=== PATIENT | female | born 1940 | race Caucasian/White ===

== ENCOUNTER 2020-08-09 09:48 | Inpatient (IN) ==
--- NOTE | 2020-08-09 10:33 | Emergency Department Note ---
Seizure HPI General Chief Complaint: Seizure Stated Complaint: seizure Time Seen by Provider: 08/09/20 10:00 Source: patient and family Mode of arrival: wheelchair History of Present Illness HPI Narrative: 80-year-old female with a history of prior seizures, none recent (2 in the past in [place]), comes in this morning after having a seizure this morning. She was initially postictal but it does not sound like she injured herself. She lives with her son out in [place], and she had a bowel accident when this happened. She was initially unresponsive but breathing on her own. But gradually came around. She does not remember the event. The son did not see any movements rather he just found her collapsed in her chair. She is not on any seizure medicine. With the 2 prior seizures she had low blood sugars but today her blood sugar is normal. She does have a history of Alzheimer's and is unable to give me meaningful review of systems or history of present illness- however she is pleasant and does give me some remote history about her diabetes and her prior health condition. Her son is available and gives me most of the history and review of system-she recently moved in with them 2 months ago Her son notes that she has a history of lymphedema but not necessarily congestive heart failure. Her primary care provider recently stopped her diuretic and potassium due to kidney issues with increased creatinine. She refuses to wear compression hose. He also notes that she has a history of recurrent UTI and they have an open order to get urinalysis. She is afebrile Related Data Previous Rx's Medication Instructions Recorded blood sugar diagnostic #10 each 07/21/20 calcium carb-vit D3-minerals 600 1 tab PO BID #180 tab 07/21/20 mg calcium-400 unit tablet cholecalciferol (vitamin D3) 25 25 mcg PO QDAY #90 tab 07/21/20 mcg (1,000 unit) tablet furosemide 40 mg tablet 40 mg PO QAM #30 tab 07/21/20 isosorbide mononitrate 30 mg 30 mg PO QDAY #90 tab 07/21/20 tablet,extended release 24 hr lancets 30 gauge #100 each 07/21/20 pioglitazone 30 mg tablet 30 mg PO QDAY #90 tab 07/21/20 potassium chloride 10 mEq 10 meq PO QDAY #30 tab 07/21/20 tablet,extended release rosuvastatin 40 mg tablet 40 mg PO QDAY #90 tab 07/21/20 trazodone 50 mg tablet See Rx Instructions PO QHS #180 tab 07/21/20 valsartan 160 mg tablet 160 mg PO BID #180 tab 07/21/20 risperidone 0.5 mg disintegrating 1 mg PO QHS #60 tab 08/05/20 tablet Allergies Allergy/AdvReac Type Severity Reaction Status Date / Time quetiapine AdvReac Intermediate extreme Verified 08/09/20 10:28 bayron Review of Systems ROS ROS Narrative: Narrative: Limitations: ROS unobtainable due to patients medical condition [facility] Narrative Patient History Narrative: Narrative: Medical/Surgical/Family History All Active Problems (Updated 08/09/20 @ 16:27 by Leo Gao MD) Hematochezia (Acute) CHF (congestive heart failure) (Acute) Seizure (Acute) Anemia, normocytic normochromic (Acute) Chronic kidney disease (Acute) SunDown syndrome (Acute) Acute coronary syndrome (Acute) Abnormal CT scan, head (Acute) Injury due to fall (Acute) Liver mass (Acute) Atherosclerosis of aorta (Acute) Abnormal finding on urinalysis (Acute) Acute renal failure (Acute) Hypertension (Acute) Type 2 diabetes mellitus with hyperlipidemia (Acute) Alzheimer's dementia (Acute) GERD (gastroesophageal reflux disease) (Acute) Hx of transient ischemic attack (TIA) (Acute) Major depressive disorder, recurrent episode (Acute) Vitamin D deficiency (Acute) Hx of colonoscopy (Acute) 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 30-59 (Acute) Osteoporosis (Acute) Anxiety (Acute) Chronic heartburn (Acute) Vascular dementia without behavioral disturbance (Chronic) Medical History (Updated 08/09/20 @ 16:27 by Leo Gao MD) Abnormal CT scan, head (Acute) Abnormal finding on urinalysis (Acute) Acute coronary syndrome (Acute) Acute renal failure (Acute) Alzheimer's dementia (Acute) Anxiety (Acute) Atherosclerosis of aorta (Acute) Chronic heartburn (Acute) GERD (gastroesophageal reflux disease) (Acute) Hx of transient ischemic attack (TIA) (Acute) Hypertension (Acute) Injury due to fall (Acute) Liver mass (Acute) Major depressive disorder, recurrent episode (Acute) Osteoporosis (Acute) 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 No acute distress. Normocephalic atraumatic. Conjunctive are clear sclerae white nonicteric. Pupils are equal and reactive. Extraocular movements are intact. Face is symmetrical. No nasal congestion or discharge. Oropharynx is pink and moist. Tongue is midline. She is able to smile. Dentures upper but not lower. Neck is supple without lymphadenopathy thyromegaly or carotid bruit. Heart is regular rate and rhythm no murmur appreciated. Lungs are clear to auscultation bilaterally without wheezes rales rhonchi or respiratory distress. Abdomen is soft nontender nondistended. No peritoneal signs or guarding. Bilateral lower extremities with +1 pitting edema to the knees. Rectal exam shows 2 large old hemorrhoid tags which are not currently bleeding. Adequate rectal tone. I do not see a fissure. She is Hemoccult positive with charlotte dark blood coming from her rectum Course Vital Signs Vital signs: Vital Signs Temperature 97.4 F 08/09/20 10:05 Pulse Rate 89 08/09/20 10:05 Respiratory Rate 16 08/09/20 10:05 Blood Pressure 130/55 08/09/20 10:05 Pulse Oximetry (%) 99 08/09/20 10:05 Temperature 97.4 F 08/09/20 10:05 Pulse Rate 87 08/09/20 16:16 Respiratory Rate 19 08/09/20 16:16 Blood Pressure 116/61 08/09/20 16:16 Pulse Oximetry (%) 97 08/09/20 16:16 [facility] MDM Narrative Medical decision making narrative: Narrative: Concern for recurrent seizure this time with normal blood sugar. We will scan her head and get laboratory. It does sound like she has a recent history of possible UTI so we will check urine on her as well. Ongoing history of congestive heart failure versus lymphedema now with chronic kidney disease. We will check her fluid status-in discussion with her son she will likely need an echocardiogram After getting back from CT scan of the head she developed some jaw pain which in the past is signified angina for her. Her son asks if he can give her her isosorbide which is what she takes for this. I agreed-he gave her the isosorbide. I will add a troponin to labs-however acknowledge that this may be difficult to interpret given her current kidney function Negative CT scan of the head without contrast. Laboratory showed improved kidney function but the BNP is elevated. Likely she is a little bit fluid up but she is not eating or drinking much this morning. I had a long discussion with her son regarding fluid status-we discussed balancing diuretic versus fluid intake. At this point because her kidneys are doing well and she is not symptomatic from her heart failure besides mild swelling in the legs we will go ahead and put her on low amount of IV fluid. She does not feel particularly hungry or thirsty at this moment. Initial troponin was negative but as she was having some chest pain we will go ahead and repeat troponin at 1400. Discussed these things with her son-and he is in agreement with the plan. She will likely need outpatient echocardiogram and EEG to further sort this out. She has chronic normocytic anemia likely secondary to kidney disease which will also need to be followed Nursing staff reports her Hemoccult was positive on bowel movement here. We will scan her belly with noncontrast because of her kidney status. She does have a history of a kidney mass? Per her son but we do not see that here today. CT scan of the abdomen pelvis is negative for acute findings I did look at her next bowel movement as she had several here and she is got jellylike blood clots small amount in the bedside commode. Rectal exam shows indeed charlotte blood from her rectum. Discussed the situation with Dr. Zelaya, surgeon who agreed to consult on the patient for possible colonoscopy. He advised me to go ahead and start GoLYTELY. It is noted that the patient's hemoglobin dropped less than 1 unit from 9.4-8.6 over the last 3 days. MCV remains normal I will discuss with hospitalist admission for acute GI bleed-Dr. Gómez agreed to accept the patient for further care and evaluation in the hospital. I discussed her CODE STATUS with her son. At this time she is a full code I did take the time to discuss these things with her son who was immediately available most of the time she was here in the hospital. I tried to answer all of his questions as best as I could Lab Data Result diagrams: 08/09/20 10:30 08/09/20 10:30 Labs: Lab Results 08/09/20 08/09/20 08/09/20 Range/Units 10:30 10:30 10:30 WBC 5.4 (4.5-11.0) K/mcL RBC 2.86 L (4.00-5.20) M/mcL Hgb 8.6 L (12.0-15.0) g/dL Hct 25.7 L (36.0-48.0) % MCV 89.9 (80.0-100.0) fL MCH 30.1 (26.0-34.0) pg MCHC 33.5 (31.0-36.0) g/dL RDW 13.2 (11.5-14.5) % Plt Count 151 (140-440) K/mcL MPV 11.0 H (7.4-10.4) fL Neut % (Auto) 73.7 (38.0-78.0) % Lymph % (Auto) 14.7 L (15.0-49.0) % [place] % (Auto) 8.5 (1.0-12.0) % Eos % (Auto) 2.9 (0.0-7.0) % Baso % (Auto) 0.2 (0.0-2.0) % Lymph # (Auto) 0.80 L (1.50-4.80) K/mcL [place] # (Auto) 0.46 (0.10-0.90) K/mcL Eos # (Auto) 0.16 (0.00-0.70) K/mcL Baso # (Auto) 0.01 (0.00-0.20) K/mcL Absolute Neutrophils 4.00 (1.80-8.00) K/mcL Sodium 121 L (133-145) mmol/L Potassium 4.3 (3.3-5.1) mmol/L Chloride 87 L (96-108) mmol/L Carbon Dioxide 22 (22-30) mmol/L Anion Gap 12.0 (8.0-16.0) BUN 54 H (8-23) mg/dL Creatinine 2.1 H (0.6-1.1) mg/dL GFR Calculation 21 Glucose 210 H (70-105) mg/dL Calcium 9.3 (8.6-10.4) mg/dL Magnesium 1.9 (1.6-2.5) mg/dL Total Bilirubin 0.5 (0.1-1.0) mg/dL AST 14 (<32) U/L ALT 8 (<40) U/L Alkaline Phosphatase 101 (39-117) U/L Troponin T < 0.01 (<0.03) ng/mL NT-Pro-B Natriuret Pep 2393.0 H (<450.0) pg/mL Total Protein 6.2 (5.9-8.4) gm/dL Albumin 3.7 (3.2-5.2) gm/dL Globulin 2.5 (2.2-3.7) gm/dL Albumin/Globulin Ratio 1.5 (1.0-2.3) Prolactin 143.1 H (4.8-23.3) ng/mL 08/09/20 Range/Units 14:04 WBC (4.5-11.0) K/mcL RBC (4.00-5.20) M/mcL Hgb (12.0-15.0) g/dL Hct (36.0-48.0) % MCV (80.0-100.0) fL MCH (26.0-34.0) pg MCHC (31.0-36.0) g/dL RDW (11.5-14.5) % Plt Count (140-440) K/mcL MPV (7.4-10.4) fL Neut % (Auto) (38.0-78.0) % Lymph % (Auto) (15.0-49.0) % [place] % (Auto) (1.0-12.0) % Eos % (Auto) (0.0-7.0) % Baso % (Auto) (0.0-2.0) % Lymph # (Auto) (1.50-4.80) K/mcL [place] # (Auto) (0.10-0.90) K/mcL Eos # (Auto) (0.00-0.70) K/mcL Baso # (Auto) (0.00-0.20) K/mcL Absolute Neutrophils (1.80-8.00) K/mcL Sodium (133-145) mmol/L Potassium (3.3-5.1) mmol/L Chloride (96-108) mmol/L Carbon Dioxide (22-30) mmol/L Anion Gap (8.0-16.0) BUN (8-23) mg/dL Creatinine (0.6-1.1) mg/dL GFR Calculation Glucose (70-105) mg/dL Calcium (8.6-10.4) mg/dL Magnesium (1.6-2.5) mg/dL Total Bilirubin (0.1-1.0) mg/dL AST (<32) U/L ALT (<40) U/L Alkaline Phosphatase (39-117) U/L Troponin T < 0.01 (<0.03) ng/mL NT-Pro-B Natriuret Pep (<450.0) pg/mL Total Protein (5.9-8.4) gm/dL Albumin (3.2-5.2) gm/dL Globulin (2.2-3.7) gm/dL Albumin/Globulin Ratio (1.0-2.3) Prolactin (4.8-23.3) ng/mL Radiology Data Radiology results reviewed: Yes I reviewed the patient's radiology results. Radiology results narrative: CT scan of the head shows no acute finding-expected chronic degenerative changes. Noted chronic calcific changes without obstruction in the vasculature CT scan of the abdomen pelvis without contrast is compared where possible with other studies-no acute findings are noted but she does have relatively severe atherosclerotic disease. EKG Data EKG #1: EKG attestation: Yes I reviewed and interpreted this EKG. EKG results narrative: Sinus rhythm. Noted left axis deviation concerning for left anterior fascicular block. Discharge Plan Patient/Caregiver Discharge Instructions Pt seen by SOCIAL SECRETARY/PA only: No Clinical Impression: Seizure, Anemia, normocytic normochromic, Hematochezia Chronic kidney disease Qualifiers: Chronic kidney disease stage: unspecified stage Qualified Code(s): N18.9 - Chronic kidney disease, unspecified CHF (congestive heart failure) Qualifiers: Heart failure type: unspecified Heart failure chronicity: unspecified Qualified Code(s): I50.9 - Heart failure, unspecified Patient Disposition: Xfer As Inpt ([facility]) Condition: Fair Follow up with: Salina Mack ARNP [Primary Care Provider] - Prescriptions: No Action calcium carbonate-vit D3-min 600 mg calcium- 400 unit tablet 1 tab PO BID Qty: 180 RF: 3 Hold Instructions: Doctor's Order cholecalciferol (vitamin D3) 25 mcg (1,000 unit) tablet 25 mcg PO QDAY Qty: 90 RF: 3 isosorbide mononitrate 30 mg tablet extended release 24 hr 30 mg PO QDAY Qty: 90 RF: 3 pioglitazone 30 mg tablet 30 mg PO QDAY Qty: 90 RF: 3 rosuvastatin 40 mg tablet 40 mg PO QDAY Qty: 90 RF: 1 trazodone 50 mg tablet See Rx Instructions PO QHS Qty: 180 RF: 2 valsartan 160 mg tablet 160 mg PO BID Qty: 180 RF: 3 (DME) OneTouch Verio test strips Strip See Rx Instructions .ROUTE .MEDSUPPLY Qty: 10 RF: 0 (DME) lancets [OneTouch Delica Lancets] 30 gauge misc See Rx Instructions .ROUTE .MEDSUPPLY Qty: 100 RF: 0 furosemide 40 mg tablet 40 mg PO QAM Qty: 30 RF: 1 Hold Instructions: Doctor's Order potassium chloride 10 mEq tablet extended release 10 meq PO QDAY Qty: 30 RF: 3 Hold Instructions: Doctor's Order risperidone 0.5 mg tablet,disintegrating 1 mg PO QHS Qty: 60 RF: 1
[2020-08-09 11:07] LABS: Basophils # (Auto) 0.01 K/mcL (0.00-0.20); Basophils % (Auto) 0.2 % (0.0-2.0); Eosinophils # (Auto) 0.16 K/mcL (0.00-0.70); Eosinophils % (Auto) 2.9 % (0.0-7.0); Hematocrit 25.7 % (36.0-48.0); Hemoglobin 8.6 g/dL (12.0-15.0); Lymphocytes % (Auto) 14.7 % (15.0-49.0); Mean Cell Volume 89.9 fL (80.0-100.0); Mean Corpuscular HGB Conc 33.5 g/dL (31.0-36.0); Monocytes # (Auto) 0.46 K/mcL (0.10-0.90); Monocytes % (Auto) 8.5 % (1.0-12.0); Neutrophils % (Auto) 73.7 % (38.0-78.0); Platelet Count 151 K/mcL (140-440); RBC 2.86 M/mcL (4.00-5.20); Red Cell Distribution Width 13.2 % (11.5-14.5); WBC 5.4 K/mcL (4.5-11.0)
[2020-08-09] MEDS ORDERED: LORazepam 2 MG/ML VIAL IV ONE ×2 (11:07→17:48)
[2020-08-09 11:31] LABS: ALT/SGPT 8 U/L (<40); AST/SGOT 14 U/L (<32); Albumin 3.7 gm/dL (3.2-5.2); Albumin/Globulin Ratio 1.5 (1.0-2.3); Alkaline Phosphatase 101 U/L (39-117); Bilirubin,Total 0.5 mg/dL (0.1-1.0); Blood Urea Nitrogen 54 mg/dL (8-23); Calcium 9.3 mg/dL (8.6-10.4); Carbon Dioxide 22 mmol/L (22-30); Chloride 87 mmol/L (96-108); Globulin 2.5 gm/dL (2.2-3.7); Glomerular Filtration Rate 21; Glucose 210 mg/dL (70-105)
[2020-08-09 12:05] LABS: Prolactin 143.1 ng/mL (4.8-23.3)
[2020-08-09] MEDS ORDERED: 0.9 % SODIUM CHLORIDE 1,000 ML IV SCH (13:00)
--- NOTE | 2020-08-09 15:27 | Cat Scan Report ---
History: Dementia and new seizure TECHNIQUE: The brain was imaged without contrast at 2.5 mm intervals. Sagittal and coronal reformats were created. The radiation exposure was limited using dose reduction technology. FINDINGS: Patient has mild to moderate generalized cerebral atrophy predominantly involving the upper convexities of the frontal and parietal lobes. There is no evidence of an infarct, hemorrhage or mass effect. The ventricles and cisterns are normal. There is a focal deposition of fat in the left choroid plexus. This is probably an incidental finding. Moderate amount calcified plaque is present in the vertebral arteries and cavernous portions of both internal carotids. There is hyperostosis frontalis interna along the inner table of both frontal bones. This is an incidental finding. The calvarium is otherwise normal. IMPRESSION: Age-related degenerative changes and no acute abnormality to explain the patient's seizure Dr. Gao was called with the results Interpreted and Authenticated by: Javon Schuler 08/09/20
--- NOTE | 2020-08-09 15:44 | Cat Scan Report ---
History: Hematochezia, liver mass, gastroesophageal reflux TECHNIQUE: The patient was imaged without oral or IV contrast. Patient's BUN and creatinine are elevated, preventing us from administering intravenous contrast. The patient was imaged from the diaphragm through the symphysis pubis. Sagittal and coronal reformats were created. The radiation exposure was limited using dose reduction technology. FINDINGS: Bands of scar or discoid atelectasis are present at the left lung base.1 large amount calcified plaque in the coronary arteries. Distal thoracic aorta is very tortuous but normal in caliber. Evaluation of abdominal organs without contrast is limited. There is a bulbous contour in the liver anteriorly in segment 4B of the left lobe. The liver parenchyma in this region is homogeneous with the remainder of the liver. On the prior chest CT done on 08/16/13, the most inferior cut was at the upper level of this contour deformity of the liver capsule. Even though the whole region was not visualized on the prior CT scan, I believe it is a chronic stable finding. The remainder the liver is homogeneous. The spleen is normal in size and homogeneous. No abnormalities detected in the pancreas. The gallbladder has been removed. The bile ducts are nondilated. The adrenals are normal. Patient has severe atherosclerotic disease throughout the abdomen and pelvis with numerous calcified plaques in the intraparenchymal visceral branches and all of the abdominal organs. Densely calcified plaques are also present in the aorta and iliac arteries but there is no aneurysm. There may be a few tiny nonobstructing calyceal stones in both kidneys. They are difficult to clearly distinguish from the abundant arterial calcifications in the interlobar arteries. There is mild stranding of the perirenal fat. No hydronephrosis is present and there is no evidence of a solid mass in either kidney. The ureters are decompressed. There are phleboliths in the left femoral vein and left upper pelvis. The uterus is somewhat bulky and also contains numerous basilar calcifications. There is also a calcified fibroid in uterus. Calcifications are also seen in both ovaries. The ovaries are normal in size. There are a few noninflamed diverticula in the sigmoid colon. Large and small intestine are normal in caliber. There is no evidence of colitis. No ascites, abscess or adenopathy are present in the abdomen or pelvis. The urinary bladder is normal in caliber. There is inflammation around the umbilicus. Associated with this is a small fat-containing umbilical hernia. Patient has a metal kiara in the left hip. Degenerative disc disease and arthritis are present throughout the lumbar spine and lower thoracic spine. There is moderate spinal canal stenosis at L4-5. IMPRESSION: Mild diverticulosis of the sigmoid colon. No acute abnormality is seen in the abdomen or pelvis to explain the anemia. Severe atherosclerotic disease throughout the entire abdomen and pelvis. Although I do not identify ischemic bowel, the patient is at risk of bowel ischemia due to severe atherosclerosis. Bulbous contour anteriorly in the left lobe of the liver Dr. Gao was called with the results Interpreted and Authenticated by: Javon Schuler 08/09/20
[2020-08-09] MEDS ORDERED: PEG 3350/NA SULF,BICARB,CL/KCL 4,000 ML ORAL.SOL PO ONE (16:22)
[2020-08-09 16:50] LABS: Appearance,Urine CLEAR (Clear); Bilirubin,Urine Negative (Negative); Color,Urine STRAW; Culture Indicated,Urine No; Glucose,Urine (UA) Negative (Negative); Ketones,Urine Negative (Negative); Leukocyte Esterase,Urine Negative /ug (Negative); Nitrate,Urine Negative (Negative); Protein,Urine Negative (Negative); Specific Gravity,Urine 1.006 (1.000-1.035); Urine Blood Negative (Negative); Urobilinogen,Urine Negative
--- NOTE | 2020-08-09 17:09 | Internal Med History&Physical ---
HPI History of Present Illness Patient information: Note initiated : 08/09/20 at 4:55 pm Service Date, if different from initiated Date: [] Patient: Xi Smith a 80 y/o F admitted on for seizure. Chief Complaint: [] History of present illness: Ms. Smith is a 80 year old F Presents to the ED for seizure per her son. Most history obtained from the son as patient has advanced dementia Alzheimer's. Per the son she did have several seizures in the past within the past couple years but it was felt that was related to hypoglycemia. Her blood glucose this time was fine. Son states that he got her up and she was in the chair. He went out and came back and he was unresponsive and her eyes were rolling back, he said she was "planking". She has not been on any seizure medication. She recently moved here from [place]. She also has history of chronic kidney disease and chronic anemia and has receives blood transfusions every 3 to 6 months. Per the son she was out of about 30 minutes and was groggy and slurring and then came around and is essentially back to baseline. She lost her bowel function. Patient has history of lymphedema but per son has no history of heart failure or CAD. While in the ER she is noted to have multiple bloody stools. Her hemoglobin 4 days ago was 9.4, it is 8.6 as of this morning. Pending repeat H&H right now. General surgeon was contacted for endoscopy. In the ED she was found to be hyponatremic as well. She had an elevated prolactin. Patient denies any pains or complaints no abdominal pain chest pain shortness of breath. Review of Systems: Positive as above. Denies headache/fever/chills/nausea/vomiting/chest or abdominal pain/cough/dyspnea. Remaining 10 point review of system reviewed negative PFSH PFSH All Active Problems (Updated 08/09/20 @ 16:27 by Leo Gao MD) Hematochezia (Acute) CHF (congestive heart failure) (Acute) Seizure (Acute) Anemia, normocytic normochromic (Acute) Chronic kidney disease (Acute) SunDown syndrome (Acute) Acute coronary syndrome (Acute) Abnormal CT scan, head (Acute) Injury due to fall (Acute) Liver mass (Acute) Atherosclerosis of aorta (Acute) Abnormal finding on urinalysis (Acute) Acute renal failure (Acute) Hypertension (Acute) Type 2 diabetes mellitus with hyperlipidemia (Acute) Alzheimer's dementia (Acute) GERD (gastroesophageal reflux disease) (Acute) Hx of transient ischemic attack (TIA) (Acute) Major depressive disorder, recurrent episode (Acute) Vitamin D deficiency (Acute) Hx of colonoscopy (Acute) 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 30-59 (Acute) Osteoporosis (Acute) Anxiety (Acute) Chronic heartburn (Acute) Vascular dementia without behavioral disturbance (Chronic) Medical History (Updated 08/09/20 @ 16:27 by Leo Gao MD) Abnormal CT scan, head (Acute) Abnormal finding on urinalysis (Acute) Acute coronary syndrome (Acute) Acute renal failure (Acute) Alzheimer's dementia (Acute) Anxiety (Acute) Atherosclerosis of aorta (Acute) Chronic heartburn (Acute) GERD (gastroesophageal reflux disease) (Acute) Hx of transient ischemic attack (TIA) (Acute) Hypertension (Acute) Injury due to fall (Acute) Liver mass (Acute) Major depressive disorder, recurrent episode (Acute) Osteoporosis (Acute) 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 30-59 (Acute) Type 2 diabetes mellitus with hyperlipidemia (Acute) Vascular dementia without behavioral disturbance (Chronic) Vitamin D deficiency (Acute) Surgical History (Updated 08/09/20 @ 14:13 by Leo Gao MD) History of cholecystectomy (Acute) History of hip surgery (Acute) Hx of colonoscopy (Acute) Social History (Updated 07/21/20 @ 15:49 by Silke Coulter CMA) lives independently: No marital status: smoking status: Former smoker alcohol intake frequency: does not drink substance use type: does not use MEDS/ALLERGIES Home Medications and Allergies Home Medications Medication Instructions Recorded Confirmed Type blood sugar diagnostic #10 each 07/21/20 07/21/20 Rx calcium carb-vit D3-minerals 600 1 tab PO BID #180 tab 07/21/20 07/21/20 Rx mg calcium-400 unit tablet cholecalciferol (vitamin D3) 25 25 mcg PO QDAY #90 tab 07/21/20 08/09/20 Rx mcg (1,000 unit) tablet furosemide 40 mg tablet 40 mg PO QAM #30 tab 07/21/20 07/21/20 Rx isosorbide mononitrate 30 mg 30 mg PO QDAY #90 tab 07/21/20 08/09/20 Rx tablet,extended release 24 hr lancets 30 gauge #100 each 07/21/20 07/21/20 Rx pioglitazone 30 mg tablet 30 mg PO QDAY #90 tab 07/21/20 08/09/20 Rx potassium chloride 10 mEq 10 meq PO QDAY #30 tab 07/21/20 07/21/20 Rx tablet,extended release rosuvastatin 40 mg tablet 40 mg PO QDAY #90 tab 07/21/20 08/09/20 Rx trazodone 50 mg tablet See Rx Instructions PO QHS #180 tab 07/21/20 08/09/20 Rx valsartan 160 mg tablet 160 mg PO BID #180 tab 07/21/20 08/09/20 Rx risperidone 0.5 mg disintegrating 1 mg PO QHS #60 tab 08/05/20 08/09/20 Rx tablet Allergies Allergy/AdvReac Type Severity Reaction Status Date / Time quetiapine AdvReac Intermediate extreme Verified 08/09/20 10:28 fatique EXAM Constitutional Vitals: Temp Pulse Resp BP Pulse Ox 97.4 F 87 19 116/61 97 08/09/20 10:05 08/09/20 16:16 08/09/20 16:16 08/09/20 16:16 08/09/20 16:16 Exam: General: Alert, Awake, No acute Distress, obese Eyes/N/T: EOMI, PERRL, Head/Neck: neck supple, normocephalic atraumatic CV: RRR, No murmurs, normal s1/s2 Pulm: Clear b/l, no wheezing/rhonchi/rales Abd: soft, nontender, +BS x4 Ext: no clubbing/cyanosis, 1-2+ b/l LE edema Neuro: Alert, no focal deficits, moves all extremities, CN 2-12 grossly intact, symmetrical strength b/l upper/lower, sensations intact b/l upper/lower Skin: warm/dry DATA Data Completed and Pending Labs: Labs from last 24 hours 08/09/20 08/09/20 08/09/20 15:54 14:04 10:30 WBC RBC Hgb Hct MCV MCH MCHC RDW Plt Count MPV Neut % (Auto) Lymph % (Auto) [place] % (Auto) Eos % (Auto) Baso % (Auto) Lymph # (Auto) [place] # (Auto) Eos # (Auto) Baso # (Auto) Absolute Neutrophils Sodium Potassium Chloride Carbon Dioxide Anion Gap BUN Creatinine GFR Calculation Glucose Calcium Magnesium Total Bilirubin AST ALT Alkaline Phosphatase Troponin T < 0.01 < 0.01 NT-Pro-B Natriuret Pep Total Protein Albumin Globulin Albumin/Globulin Ratio Prolactin Urine Color Straw Urine Appearance Clear Urine pH 5.0 Ur Specific [place] 1.006 Urine Protein Negative Urine Glucose (UA) Negative Urine Ketones Negative Urine Occult Blood Negative Urine Nitrate Negative Urine Bilirubin Negative Urine Urobilinogen Negative Ur Leukocyte Esterase Negative Ur Culture Indicated? No 08/09/20 08/09/20 10:30 10:30 WBC 5.4 RBC 2.86 L Hgb 8.6 L Hct 25.7 L MCV 89.9 MCH 30.1 MCHC 33.5 RDW 13.2 Plt Count 151 MPV 11.0 H Neut % (Auto) 73.7 Lymph % (Auto) 14.7 L [place] % (Auto) 8.5 Eos % (Auto) 2.9 Baso % (Auto) 0.2 Lymph # (Auto) 0.[address] [place] # (Auto) 0.46 Eos # (Auto) 0.16 Baso # (Auto) 0.01 Absolute Neutrophils 4.00 Sodium 121 L Potassium 4.3 Chloride 87 L Carbon Dioxide 22 Anion Gap 12.0 BUN 54 H Creatinine 2.1 H GFR Calculation 21 Glucose 210 H Calcium 9.3 Magnesium 1.9 Total Bilirubin 0.5 AST 14 ALT 8 Alkaline Phosphatase 101 Troponin T NT-Pro-B Natriuret Pep 2393.0 H Total Protein 6.2 Albumin 3.7 Globulin 2.5 Albumin/Globulin Ratio 1.5 Prolactin 143.1 H Urine Color Urine Appearance Urine pH Ur Specific Rice Urine Protein Urine Glucose (UA) Urine Ketones Urine Occult Blood Urine Nitrate Urine Bilirubin Urine Urobilinogen Ur Leukocyte Esterase Ur Culture Indicated? A/P Narrative A/P Narrative: A: *GI Bleed: *Acute blood loss anemia on chronic anemia: *Suspected seizure: had several seizures past couple years but son says it was felt to be related to hypoglycemia -glucose wnl by EMS, elevated prolactin -CT brain no acute path *Hyponatremia: 121, not typically low enough to cause seizure and symptoms resolved on own. sodium was 129 on 08/05 *CKD IV: *DM:on pioglitazone, A1c 7.6 *Chronic lymphedema: *Anxiety/depression: *Obesity: *HTN/HLD: * P: -Gen Surgeon consulted for endoscopy. -1 prbc and f/u H&H. -prn ativan, MARIE goffra for now -w/u with neurology for further seizure evaluation, EEG/MRI -hyponatremia w/u -cont hold home lasix that was recently held as well as calcium supp -hold home ARB while monitoring renal fxn -pt on imdur but son states no h/o CAD/CHF -cont home psych meds -SSI, pioglitazone -pt/ot -ppx: SCD/ANABELL wraps Time Spent With Patient Time: Total time spent is greater than 50% in coordination of care (as documented) at patient's floor/unit and/or counseling patient:
[2020-08-09] MEDS ORDERED: LABETALOL 5 MG/ML ML IV PRN (18:36)
[2020-08-09] MEDS ORDERED: MAGNESIUM SULFATE 2 GM/50 ML BAG IV PRN (18:36)
[2020-08-09] MEDS ORDERED: 0.9 % SODIUM CHLORIDE 250 ML IV SCH (18:36)
[2020-08-09] MEDS ORDERED: POTASSIUM CHLORIDE 40 MEQ in DEXTROSE 5% IN WATER 500 ML IV PRN (18:36)
[2020-08-09] MEDS ORDERED: DEXTROSE 31 GM ORAL.SUSP PO PRN (18:36)
[2020-08-09] MEDS ORDERED: ONDANSETRON 4 MG/2 ML VIAL IV PRN (18:36)
[2020-08-09] MEDS ORDERED: ACETAMINOPHEN 325 MG TABLET PO PRN (18:36)
[2020-08-09] MEDS ORDERED: DEXTROSE 50% 50 ML VIAL IV PRN (18:36)
[2020-08-09] MEDS ORDERED: LORazepam 2 MG/ML VIAL IV PRN ×2 (18:36→21:45)
[2020-08-09] MEDS ORDERED: POTASSIUM CHLORIDE 20 MEQ TABLET PO PRN ×2 (18:36)
[2020-08-09 18:45] LABS: Sodium, Urine Random 24 mmol/L
[2020-08-09] MEDS: 0.9 % SODIUM CHLORIDE 1,000 ML IV SCH (18:45)
[2020-08-09 18:49] LABS: Osmolality,Urine 210 mOSM/kg (80-1000)
[2020-08-09 19:05] LABS: Thyroid Stimulating Hormone 5.84 uIU/mL (0.27-5.01); Uric Acid 6.9 mg/dL (2.5-8.0)
[2020-08-09 19:19] LABS: Hematocrit 27.2 % (36.0-48.0)
[2020-08-09 19:19] LABS: POC Blood Urea Nitrogen 45 mg/dL (6-20); POC CO2 23 mmol/L (22-30); POC Chloride 93 mEq/L (96-108); POC Glucose, Random 165 mg/dL (70-105); POC Hematocrit 27 % (36-48); POC Potassium 4.5 mEql/L (3.3-5.1); POC Sodium 124 mEq/L (133-145)
[2020-08-09 20:17] LABS: INR 0.9 (0.9-1.1); Prothrombin Time 13.1 sec (11.9-14.5)
[2020-08-09] MEDS: HALOPERIDOL LACTATE 5 MG/ML VIAL IM PRN ×2 (20:39→21:37)
[2020-08-09] MEDS ORDERED: HALOPERIDOL LACTATE 5 MG/ML VIAL ONE (20:59)
[2020-08-09] MEDS ORDERED: traZODone HCL 50 MG TABLET PO SCH (21:00)
[2020-08-09] MEDS ORDERED: ATORVASTATIN 40 MG TABLET PO SCH (21:00)
[2020-08-09] MEDS ORDERED: risperiDONE 1 MG TABLET PO SCH (21:00)
--- NOTE | 2020-08-09 21:20 | General Surgery Consult Note ---
HPI Data of Consult Primary Care Provider: Salina Mack Consult Narrative History of present illness: 80 yo woman with advanced dementia, severe athrosclerosis and known hepatic lesion with family decision not to work up presented to ER with 3rd recent witnessed siezure at home. Her non con head CT did not show mass. She was noted to have blood and jelly like clot from rectum in ED and admitted for work up of GIB. In discussion with pts son. Pt was in usual state of poor health with pellet like stools. 2 days ago she was given a laxative with substantial effect with development of diarrhea, only late in the diarrhea course did her stools become bloody. She underwent a colonoscopy 5.5 yrs ago that removed multiple non cancerous polyps. Decision was made at that time no to persue further endoscopy. In ER no hemodynamic instability, initial hct 25. Significant volume depletion noted with NA 124, BUN 45, Cr 2. Admitted to ICU and golytly prep started. Pt then began to sundown pulled out IVs, refused to drink prep. I called son and had a 25min discussion re options. I presented 3 possibilities. 1) abdondon endoscopy and let pt go home given multiple comobidities. I suspect an underling cause that is benign given hx of c olonoscope. 2) allow pt to slowly drink prep which may leak to a more lenghty hospitalization. 3) Place NGT with chemical and physical restrains and run prep on pump thorugh this. After much though pt wanted option 3, he understands the increased pulm and cardiac risk with this option. cc:: CC: Eligio Gómez Review of Systems ROS unobtainable: due to mental status PFSH PFSH All Active Problems (Updated 08/09/20 @ 21:40 by Rishabh Huertas MD) Hematochezia (Acute) CHF (congestive heart failure) (Acute) Seizure (Acute) Anemia, normocytic normochromic (Acute) Chronic kidney disease (Acute) SunDown syndrome (Acute) Acute coronary syndrome (Acute) Abnormal CT scan, head (Acute) Injury due to fall (Acute) Liver mass (Acute) Atherosclerosis of aorta (Acute) Abnormal finding on urinalysis (Acute) Acute renal failure (Acute) Hypertension (Acute) Type 2 diabetes mellitus with hyperlipidemia (Acute) Alzheimer's dementia (Acute) GERD (gastroesophageal reflux disease) (Acute) Hx of transient ischemic attack (TIA) (Acute) Major depressive disorder, recurrent episode (Acute) Vitamin D deficiency (Acute) Hx of colonoscopy (Acute) 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 30-59 (Acute) Osteoporosis (Acute) Anxiety (Acute) Chronic heartburn (Acute) Vascular dementia without behavioral disturbance (Chronic) Medical History (Updated 08/09/20 @ 21:40 by Rishabh Huertas MD) Abnormal CT scan, head (Acute) Abnormal finding on urinalysis (Acute) Acute coronary syndrome (Acute) Acute renal failure (Acute) Alzheimer's dementia (Acute) Anxiety (Acute) Atherosclerosis of aorta (Acute) Chronic heartburn (Acute) GERD (gastroesophageal reflux disease) (Acute) Hx of transient ischemic attack (TIA) (Acute) Hypertension (Acute) Injury due to fall (Acute) Liver mass (Acute) Major depressive disorder, recurrent episode (Acute) Osteoporosis (Acute) 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 30-59 (Acute) Type 2 diabetes mellitus with hyperlipidemia (Acute) Vascular dementia without behavioral disturbance (Chronic) Vitamin D deficiency (Acute) Surgical History (Updated 08/09/20 @ 14:13 by Leo Gao MD) History of cholecystectomy (Acute) History of hip surgery (Acute) Hx of colonoscopy (Acute) Social History (Updated 07/21/20 @ 15:49 by Silke Coulter CMA) lives independently: No marital status: smoking status: Former smoker alcohol intake frequency: does not drink substance use type: does not use MEDS/ALLERGIES Home Medications and Allergies Home Medications Medication Instructions Recorded Confirmed Type blood sugar diagnostic #10 each 07/21/20 08/09/20 Rx calcium carb-vit D3-minerals 600 1 tab PO BID #180 tab 07/21/20 08/09/20 Rx mg calcium-400 unit tablet cholecalciferol (vitamin D3) 25 25 mcg PO QDAY #90 tab 07/21/20 08/09/20 Rx mcg (1,000 unit) tablet furosemide 40 mg tablet 40 mg PO QAM #30 tab 07/21/20 08/09/20 Rx isosorbide mononitrate 30 mg 30 mg PO QDAY #90 tab 07/21/20 08/09/20 Rx tablet,extended release 24 hr lancets 30 gauge #100 each 07/21/20 08/09/20 Rx pioglitazone 30 mg tablet 30 mg PO QDAY #90 tab 07/21/20 08/09/20 Rx potassium chloride 10 mEq 10 meq PO QDAY #30 tab 07/21/20 08/09/20 Rx tablet,extended release rosuvastatin 40 mg tablet 40 mg PO QDAY #90 tab 07/21/20 08/09/20 Rx trazodone 50 mg tablet See Rx Instructions PO QHS #180 tab 07/21/20 08/09/20 Rx valsartan 160 mg tablet 160 mg PO BID #180 tab 07/21/20 08/09/20 Rx risperidone 0.5 mg disintegrating 1 mg PO QHS #60 tab 08/05/20 08/09/20 Rx tablet Allergies Allergy/AdvReac Type Severity Reaction Status Date / Time quetiapine AdvReac Intermediate extreme Verified 08/09/20 10:28 fatique Physical Examination Vital Signs Vital signs: Temp Pulse Resp BP Pulse Ox 36.7 C 92 H 20 126/64 97 08/09/20 18:36 08/09/20 18:36 08/09/20 18:36 08/09/20 18:36 08/09/20 18:36 General physical appearance General physical exam: other (Somewhat compative, Aand Ox 1. uncooperative ) Eyes Eye exam: negative icteric ENT ENT exam: normal nares Head Head exam IM: Present atraumatic and normocephalic Head exam expanded IM: Absent contusion Neck Neck exam: trachea midline Cardiovascular Cardiovascular: Strong regular radial pulse Respiratory Respiratory exam: normal respiratory effort Abdomen Abdomen: Present soft (rotund, nontender, non distended ) Integumentary Integumentary: Present other (multiple bruses in several stages of development ) Neurologic Neurologic: Present disoriented, combative and memory loss Results Labs Result diagrams: 08/09/20 18:08 08/09/20 10:30 Labs: Abnormal lab results 08/09/20 08/09/20 08/09/20 Range/Units 10:30 10:30 18:08 RBC 2.86 L (4.00-5.20) M/mcL Hgb 8.6 L 9.0 L (12.0-15.0) g/dL Hct 25.7 L 27.2 L (36.0-48.0) % POC Hct (36-48) % MPV 11.0 H (7.4-10.4) fL Lymph % (Auto) 14.7 L (15.0-49.0) % Lymph # (Auto) 0.80 L (1.50-4.80) K/mcL POC Sodium (133-145) mEq/L Sodium 121 L (133-145) mmol/L POC Chloride (96-108) mEq/L Chloride 87 L (96-108) mmol/L POC BUN (6-20) mg/dL BUN 54 H (8-23) mg/dL Creatinine 2.1 H (0.6-1.1) mg/dL POC Creatinine (0.6-1.2) mg/dL Glucose 210 H (70-105) mg/dL POC Glucose (70-105) mg/dL NT-Pro-B Natriuret Pep 2393.0 H (<450.0) pg/mL TSH (0.27-5.01) uIU/mL Prolactin 143.1 H (4.8-23.3) ng/mL 08/09/20 08/09/20 Range/Units 18:08 19:00 RBC (4.00-5.20) M/mcL Hgb (12.0-15.0) g/dL Hct (36.0-48.0) % POC Hct 27 L (36-48) % MPV (7.4-10.4) fL Lymph % (Auto) (15.0-49.0) % Lymph # (Auto) (1.50-4.80) K/mcL POC Sodium 124 L (133-145) mEq/L Sodium (133-145) mmol/L POC Chloride 93 L (96-108) mEq/L Chloride (96-108) mmol/L POC BUN 45 H (6-20) mg/dL BUN (8-23) mg/dL Creatinine (0.6-1.1) mg/dL POC Creatinine 2.0 H (0.6-1.2) mg/dL Glucose (70-105) mg/dL POC Glucose 165 H (70-105) mg/dL NT-Pro-B Natriuret Pep (<450.0) pg/mL TSH 5.84 H (0.27-5.01) uIU/mL Prolactin (4.8-23.3) ng/mL Diabetes panel 08/09/20 Range/Units 10:30 Sodium 121 L (133-145) mmol/L Potassium 4.3 (3.3-5.1) mmol/L Chloride 87 L (96-108) mmol/L Carbon Dioxide 22 (22-30) mmol/L BUN 54 H (8-23) mg/dL Creatinine 2.1 H (0.6-1.1) mg/dL Glucose 210 H (70-105) mg/dL Calcium 9.3 (8.6-10.4) mg/dL AST 14 (<32) U/L ALT 8 (<40) U/L Alkaline Phosphatase 101 (39-117) U/L Total Protein 6.2 (5.9-8.4) gm/dL Albumin 3.7 (3.2-5.2) gm/dL Thyroid panel 08/09/20 Range/Units 18:08 TSH 5.84 H (0.27-5.01) uIU/mL Calcium panel 08/09/20 Range/Units 10:30 Calcium 9.3 (8.6-10.4) mg/dL Albumin 3.7 (3.2-5.2) gm/dL Pituitary panel 08/09/20 08/09/20 Range/Units 10:30 18:08 Sodium 121 L (133-145) mmol/L Potassium 4.3 (3.3-5.1) mmol/L Chloride 87 L (96-108) mmol/L Carbon Dioxide 22 (22-30) mmol/L BUN 54 H (8-23) mg/dL Creatinine 2.1 H (0.6-1.1) mg/dL Glucose 210 H (70-105) mg/dL Calcium 9.3 (8.6-10.4) mg/dL TSH 5.84 H (0.27-5.01) uIU/mL Prolactin 143.1 H (4.8-23.3) ng/mL Adrenal panel 08/09/20 Range/Units 10:30 Sodium 121 L (133-145) mmol/L Potassium 4.3 (3.3-5.1) mmol/L Chloride 87 L (96-108) mmol/L Carbon Dioxide 22 (22-30) mmol/L BUN 54 H (8-23) mg/dL Creatinine 2.1 H (0.6-1.1) mg/dL Glucose 210 H (70-105) mg/dL Calcium 9.3 (8.6-10.4) mg/dL Total Bilirubin 0.5 (0.1-1.0) mg/dL AST 14 (<32) U/L ALT 8 (<40) U/L Alkaline Phosphatase 101 (39-117) U/L Total Protein 6.2 (5.9-8.4) gm/dL Albumin 3.7 (3.2-5.2) gm/dL All other labs normal. A/P Assessment and plan (1) Hematochezia: Status: Acute Comment: 80 yo woman with advanced dementia admitted with GI bleed in setting of liver mass, multiple recent seizures. Significant hyponateremia. Given history of diarrhea preceding bleeding, and advance atherosclerosis, it is quite possible pt has ischemic colitis. Plan: Colonoscopy per family request tomorrow Consent from son obtained - risks of injury and missed lesions discussed Pt Sons request will restrain and place NGT to faciliate prep Rishabh Huertas MD Surgery Time Spent With Patient Time: Total time spent is greater than 50% in coordination of care (as documented) at patient's floor/unit and/or counseling patient:
[2020-08-09] MEDS ORDERED: LORazepam 2 MG/ML VIAL IM ONE (21:30)
[2020-08-09] MEDS ORDERED: LORazepam 2 MG/ML VIAL ONE (21:38)
[2020-08-09] MEDS ORDERED: HALOPERIDOL LACTATE 5 MG/ML VIAL IV PRN (21:43)
[2020-08-09] MEDS: levETIRAcetam 500 MG in 0.9 % SODIUM CHLORIDE 100 ML IV SCH (23:53)
[2020-08-10] MEDS: INSULIN LISPRO 1 UNIT/0.01 ML UNIT SQ SCH ×5 (01:35→20:49)
[2020-08-10] MEDS: PANTOPRAZOLE 40 MG VIAL IV SCH ×3 (03:21→20:59)
[2020-08-10] MEDS: 0.9 % SODIUM CHLORIDE 10 ML SYRINGE IV SCH ×4 (03:21→21:00)
[2020-08-10] MEDS ORDERED: 0.9 % SODIUM CHLORIDE 1,000 ML BAG IV ONE (03:29)
[2020-08-10 07:03] LABS: Basophils # (Auto) 0.02 K/mcL (0.00-0.20); Basophils % (Auto) 0.3 % (0.0-2.0); Eosinophils % (Auto) 1.5 % (0.0-7.0); Hematocrit 27.2 % (36.0-48.0); Hemoglobin 9.1 g/dL (12.0-15.0); Lymphocytes # (Auto) 0.87 K/mcL (1.50-4.80); Lymphocytes % (Auto) 12.9 % (15.0-49.0); Mean Cell Volume 90.1 fL (80.0-100.0); Mean Corpuscular HGB Conc 33.5 g/dL (31.0-36.0); Mean Platelet Volume 10.8 fL (7.4-10.4); Monocytes # (Auto) 0.64 K/mcL (0.10-0.90); Monocytes % (Auto) 9.5 % (1.0-12.0); Neutrophils % (Auto) 75.8 % (38.0-78.0); Platelet Count 156 K/mcL (140-440); RBC 3.02 M/mcL (4.00-5.20); Red Cell Distribution Width 13.6 % (11.5-14.5); WBC 6.8 K/mcL (4.5-11.0)
--- NOTE | 2020-08-10 07:28 | Internal Med Progress Note ---
SUBJECTIVE Subjective Patient information: Note initiated : 08/10/20 at 7:23 am Service Date, if different from initiated Date: [] Patient: Xi Smith a 80 y/o F admitted on 08/09/20 for seizure. Chief Complaint: [] Interval history: History of present illness: Ms. Smith is a 80 year old F Presents to the ED for seizure per her son. Most history obtained from the son as patient has advanced dementia Alzheimer's. Per the son she did have several seizures in the past within the past couple years but it was felt that was related to hypoglycemia. Her blood glucose this time was fine. Son states that he got her up and she was in the chair. He went out and came back and he was unresponsive and her eyes were rolling back, he said she was "planking". She has not been on any seizure medication. She recently moved here from [place]. She also has history of chronic kidney disease and chronic anemia and has receives blood transfusions every 3 to 6 months. Per the son she was out of about 30 minutes and was groggy and slurring and then came around and is essentially back to baseline. She lost her bowel function. Patient has history of lymphedema but per son has no history of heart failure or CAD. While in the ER she is noted to have multiple bloody stools. Her hemoglobin 4 days ago was 9.4, it is 8.6 as of this morning. Pending repeat H&H right now. General surgeon was contacted for endoscopy. In the ED she was found to be hyponatremic as well. She had an elevated prolactin. Patient denies any pains or complaints no abdominal pain chest pain shortness of breath. 1/4 Patient had significant agitation last night. Was pulled off several NG tube and IV line. Received Haldol and Ativan. No reported seizures since admission. Did have a bloody bowel movement late in the evening and then early this morning was a green bowel movement. Patient is still sedated and unable to gather review of systems Constitutional Vitals: Vital Signs Temp Pulse Resp BP Pulse Ox 98.1 F 80 20 94/52 96 08/10/20 04:01 08/10/20 05:58 08/10/20 05:58 08/10/20 05:58 08/10/20 05:58 Period Temp Pulse Resp BP Sys/Mitchell Pulse Ox Last 24 Hr 97.4 F-98.3 F 80-117 13-31 93-146/37-128 91-100 Intake and Output 08/09/20 08/10/20 08/10/20 21:59 05:59 13:59 Intake Total 936 Output Total 400 Balance -400 936 Weight 89.925 kg Intake & Output: Intake & Output 08/09/20 08/10/20 08/10/20 21:59 05:59 13:59 Intake Total 936 Output Total 400 Balance -400 936 Weight 89.925 kg Intake: IV 536 Sodium Chloride 0.9% 1,000 ml @ 431 75 mls/hr IV .[id number] [facility] Rx#: [id number] Keppra 500 mg In Sodium 105 Chloride 0.9% 100 ml @ 200 mls/ hr IV Q12 [facility] Rx#:[id number] Blood Product 400 Output: Urine/Stool Mix 400 Other: Feeding Ability Needs Supervision Urine Appearance Straight Clear Urine Color Straight Pale Stool Size Small Stool Color Bright Red Blood Stool Consistency Liquid # Bowel Movements 1 Exam: General: Sleeping, No acute Distress, obese Eyes/N/T: PERRL, Head/Neck: neck supple, CV: RRR, No murmurs, Pulm: Clear b/l, no wheezing/rhonchi/rales Abd: soft, nontender, +BS x4 Ext: no clubbing/cyanosis, 1-2+ b/l LE edema Neuro: still sedated from medications, unable to gather full neuro exam, PERRL Skin: warm/dry OBJ DATA Labs CBC & Chem 7: 08/10/20 05:49 08/10/20 05:49 Labs: Abnormal Lab Results 08/10/20 08/09/20 08/09/20 05:49 19:00 18:08 RBC 3.02 L Hgb 9.1 L Hct 27.2 L POC Hct 27 L MPV 10.8 H Lymph % (Auto) 12.9 L Lymph # (Auto) 0.87 L POC Sodium 124 L Sodium POC Chloride 93 L Chloride POC BUN 45 H BUN Creatinine POC Creatinine 2.0 H Glucose POC Glucose 165 H Osmolality 279 L NT-Pro-B Natriuret Pep TSH 5.84 H Prolactin 08/09/20 08/09/20 08/09/20 18:08 10:30 10:30 RBC 2.86 L Hgb 9.0 L 8.6 L Hct 27.2 L 25.7 L POC Hct MPV 11.0 H Lymph % (Auto) 14.7 L Lymph # (Auto) 0.80 L POC Sodium Sodium 121 L POC Chloride Chloride 87 L POC BUN BUN 54 H Creatinine 2.1 H POC Creatinine Glucose 210 H POC Glucose Osmolality NT-Pro-B Natriuret Pep 2393.0 H TSH Prolactin 143.1 H Meds: Medications Acetaminophen (Tylenol) 650 mg PO Q6HP PRN PRN Reason: PAIN/FEVER > 101 Atorvastatin Calcium (Lipitor) 80 mg PO HS [facility] Last Admin: 08/10/20 01:38 Dose: Not Given Documented by: Dextrose (Dextrose 50%) 0 ml IV UD PRN PRN Reason: Hypoglycemia Diagnostic Test (Pha) (Accu-Chek) 1 each FS [facility] Last Admin: 08/10/20 01:36 Dose: 1 each Documented by: Glucose (Insta-Glucose) 15 gm PO PRN PRN PRN Reason: Hypoglycemia Haloperidol Lactate (Haldol) 5 mg IV Q6HP PRN PRN Reason: aggiatation Sodium Chloride (Sodium Chloride 0.9%) 1,000 mls @ 75 mls/hr IV .[id number] [facility] Last Infusion: 08/10/20 03:24 Dose: 75 mls/hr Documented by: Potassium Chloride 40 meq/ (Dextrose) 520 mls @ 130 mls/hr IV UD PRN PRN Reason: Potassium < 3 Magnesium Sulfate (Magnesium Sulfate) 2 gm in 50 mls @ 50 mls/hr IV UD PRN PRN Reason: Magnesium </= 1.6 Levetiracetam 500 mg/ Sodium (Chloride) 105 mls @ 200 mls/hr IV Q12 [facility] Last Infusion: 08/10/20 00:25 Dose: Infused Documented by: Insulin Human Lispro (Humalog) 0 unit SQ [facility]; Protocol Last Admin: 08/10/20 01:35 Dose: 2 units Documented by: Isosorbide Mononitrate (Imdur) 30 mg PO QDAY [facility] Labetalol HCl (Trandate) 0 mg IV Q2HP PRN PRN Reason: Hypertension Lorazepam (Ativan) 2 mg IV Q4-6HP PRN PRN Reason: Seizure Activity Last Admin: 08/10/20 00:01 Dose: 2 mg Documented by: Lorazepam (Ativan) 1 mg IV Q2HP PRN PRN Reason: ANXIETY/SEDATION Ondansetron HCl (Zofran) 4 mg IV Q4HP PRN PRN Reason: Nausea And Vomiting Pantoprazole Sodium (Protonix) 40 mg IV BID [facility] Last Admin: 08/10/20 03:21 Dose: 40 mg Documented by: Pioglitazone HCl (Actos) 30 mg PO DAILY [facility] Potassium Chloride (Kdur) 40 meq PO UD PRN PRN Reason: Potssium is 3-3.5 Potassium Chloride (Kdur) 40 meq PO UD PRN PRN Reason: Potassium < 3 Risperidone (Risperdal) 1 mg PO HS [facility] Last Admin: 08/10/20 01:38 Dose: Not Given Documented by: Sodium Chloride (Saline Flush) 10 ml IV Q8 [facility] Last Admin: 08/10/20 05:27 Dose: 10 ml Documented by: Trazodone HCl (Desyrel) 50 - 100 mg PO QHS [facility] Last Admin: 08/10/20 01:38 Dose: Not Given Documented by: A/P Narrative A/P Narrative: A: *GI Bleed: *Acute blood loss anemia on chronic anemia (receives blood transfusions several time per year): -1prbc (08/09), h&h stable *Suspected seizure: had several seizures past couple years but son says it was felt to be related to hypoglycemia -glucose wnl by EMS, elevated prolactin -CT brain no acute path *Hyponatremia: improved -likely volume depletion/diuretics *Advanced Alzheimer's Dementia: *CKD IV: *DM:on pioglitazone, A1c 7.6 *Chronic lymphedema: *Anxiety/depression: *Obesity: *HTN/HLD: P: -Gen Surgeon consulted for endoscopy. -monitor H&H. -prn ativan, IV keppra for now -w/u with neurology for further seizure evaluation, EEG/MRI -cont hold home lasix that was recently held as well as calcium supp -hold home ARB while monitoring renal fxn -pt on imdur but son states no h/o CAD/CHF -cont home psych meds -SSI, pioglitazone -cont risperidone -pt/ot -ppx: SCD/ANABELL wraps Time Spent With Patient Time: Total time spent is greater than 50% in coordination of care (as documented) at patient's floor/unit and/or counseling patient: QUALITY VTE Deep Vein Thrombosis/Pulmonary Embolism Present on Admission: No
[2020-08-10 07:44] LABS: ALT/SGPT 8 U/L (<40); AST/SGOT 20 U/L (<32); Albumin 3.1 gm/dL (3.2-5.2); Albumin/Globulin Ratio 1.5 (1.0-2.3); Alkaline Phosphatase 47 U/L (39-117); Bilirubin,Direct 0.2 mg/dL (<0.3); Bilirubin,Total 1.5 mg/dL (0.1-1.0); Blood Urea Nitrogen 42 mg/dL (8-23); Calcium 8.4 mg/dL (8.6-10.4); Carbon Dioxide 23 mmol/L (22-30); Chloride 94 mmol/L (96-108); Globulin 2.1 gm/dL (2.2-3.7); Glomerular Filtration Rate 27; Glucose 113 mg/dL (70-105); Lactate Dehydrogenase 165 U/L (135-225); Phosphorous 2.8 mg/dL (2.5-4.5); Triglycerides 60 mg/dL (<150); Uric Acid 6.7 mg/dL (2.5-8.0)
[2020-08-10] MEDS ORDERED: ISOSORBIDE MONONITRATE 30 MG TAB.XL.24H PO SCH (09:00)
[2020-08-10] MEDS ORDERED: PIOGLITAZONE 15 MG TABLET PO SCH (09:00)
--- NOTE | 2020-08-10 09:04 | XRay Report ---
CLINICAL INFORMATION: ngt placement COMPARISON: None. FINDINGS: The NG tube overlies the gastric antrum. Stool gas pattern is grossly normal on this particular image which includes the only the upper one half of the abdomen. No free air, soft tissue mass or organomegaly IMPRESSION: NG tube overlies the gastric antrum. No acute disease evident Interpreted and Authenticated by: Quentin Stearns 08/10/20
--- NOTE | 2020-08-10 09:05 | XRay Report ---
CLINICAL INFORMATION: NGT placement confirmation COMPARISON: None. FINDINGS: NG tube overlies the gastric fundus. Stool gas pattern grossly normal. No free air, soft tissue mass or organomegaly. IMPRESSION: NG tube overlies the gastric fundus Interpreted and Authenticated by: Quentin Stearns 08/10/20
[2020-08-10] MEDS: levETIRAcetam 500 MG in 0.9 % SODIUM CHLORIDE 100 ML IV SCH ×3 (09:14→20:49)
[2020-08-10] MEDS: 0.9 % SODIUM CHLORIDE 1,000 ML IV SCH ×3 (10:11→20:50)
[2020-08-10] MEDS ORDERED: diphenhydrAMINE 50 MG/ML VIAL IV PRN ×2 (16:33→20:40)
--- NOTE | 2020-08-10 16:44 | General Surgery Progress Note ---
SUBJECTIVE Subjective Patient information: Note initiated : 08/10/20 at 4:36 pm Service Date, if different from initiated Date: [] Patient: Xi Smith 80 y/o F admitted on 08/09/20 for seizure. Chief Complaint: [] Principal diagnosis: rectal bleeding, dehydration, dementia with agitation Interval history: the patient has been very somnolent most of the day. She primarily only responds to her son. She has not had any active bleeding, though she has had multiple bowel movements. Constitutional Vitals: Vital Signs Temp Pulse Resp BP Pulse Ox 98.1 F 82 21 110/48 98 08/10/20 04:01 08/10/20 16:09 08/10/20 16:09 08/10/20 16:09 08/10/20 16:09 Period Temp Pulse Resp BP Sys/Mitchell Pulse Ox Last 24 Hr 97.4 F-98.3 F 71-107 13-30 94-146/37-128 91-100 Intake and Output 08/10/20 08/10/20 08/10/20 05:59 13:59 21:59 Intake Total 936 569 Balance 936 569 Weight 198 lb 4 oz Patient Weight 08/11/20 05:59 Weight 198 lb 4 oz Intake & Output: Intake & Output 08/10/20 08/10/20 08/10/20 05:59 13:59 21:59 Intake Total 936 569 Balance 936 569 Weight 198 lb 4 oz Intake: IV 536 569 Sodium Chloride 0.9% 1,000 ml @ 431 569 75 mls/hr IV .[id number] [facility] Rx#: [id number] Keppra 500 mg In Sodium 105 Chloride 0.9% 100 ml @ 200 mls/ hr IV Q12 [facility] Rx#:[id number] Blood Product 400 Other: Meal Lunch Percent of Meal Consumed 0% Feeding Ability Needs Supervision Stool Size Moderate Stool Color Marty Colored Stool Consistency Watery Head Head exam: Present atraumatic and normal inspection Neck Neck exam: Present full ROM Respiratory Respiratory exam: Present normal respiratory exam and CTAB Cardiovascular Cardiovascular exam: Present RRR, +S1 and +S2 GI/Abdominal GI/Abdominal exam: Present normal bowel sounds and soft; Absent distended, mass and tenderness Rectal Additional comments: moderate external and internal hemorrhoids; no anal or rectal mass; no active bleeding On examining finger Extremities Exam Extremities exam: Present full ROM and neurovascular intact Psychiatric Psychiatric exam: Present agitated and anxious Additional comments: severe dementia with severe agitation Skin Additional comments: intertrigo lower abdominal panniculus A/P Assessment and plan (1) Hematochezia: Status: Acute Comment: 80 yo woman with advanced dementia admitted with GI bleed in setting of liver mass, multiple recent seizures. Significant hyponateremia. Given history of diarrhea preceding bleeding, and advance atherosclerosis, it is quite possible pt has ischemic colitis. Plan: Colonoscopy per family request tomorrow Consent from son obtained - risks of injury and missed lesions discussed Pt Sons request will restrain and place NGT to faciliate prep Rishabh Huertsa MD Surgery (2) Seizure: Status: Acute (3) Chronic kidney disease: Status: Acute Qualifiers: Chronic kidney disease stage: unspecified stage Qualified Code(s): N18.9 - Chronic kidney disease, unspecified (4) Acute renal failure: Status: Acute Qualifiers: Acute renal failure type: unspecified Qualified Code(s): N17.9 - Acute kidney failure, unspecified (5) Type 2 diabetes mellitus with hyperlipidemia: Status: Acute (6) Severe dementia: Status: Acute Narrative A/P Narrative: I had a long discussion with the son and the plan will be to allow the patient to awaken so that she can take orally and to stop the bowel prep.No evidence of active bleeding at this time and there is no findings in her anus and rectum except for hemorrhoids. His decision has been that even if she has a colonic lesion that he does not wish to have invasive therapy. Her hemoglobin is clinically stable at this time. Some of the drop is probably due to hydration rather than active bleeding. She also has chronic anemia related to her renal disease. I think that this is a rational decision in this elderly lady with advanced dementia with poor quality of life and no potential for improvement. Time Spent With Patient Time: Total time spent is greater than 50% in coordination of care (as docume nted) at patient's floor/unit and/or counseling patient:
[2020-08-10] MEDS ORDERED: hydrOXYzine 50 MG/ML VIAL IM PRN ×2 (16:48→20:40)
[2020-08-10] MEDS ORDERED: MAGNESIUM SULFATE 2 GM/50 ML BAG IV PRN (20:40)
[2020-08-10] MEDS ORDERED: DEXTROSE 31 GM ORAL.SUSP PO PRN (20:40)
[2020-08-10] MEDS ORDERED: ONDANSETRON 4 MG/2 ML VIAL IV PRN (20:40)
[2020-08-10] MEDS ORDERED: DEXTROSE 50% 50 ML VIAL IV PRN (20:40)
[2020-08-10] MEDS ORDERED: ACETAMINOPHEN 325 MG TABLET PO PRN (20:40)
[2020-08-10] MEDS ORDERED: LABETALOL 5 MG/ML ML IV PRN (20:40)
[2020-08-10] MEDS ORDERED: HALOPERIDOL LACTATE 5 MG/ML VIAL IV PRN (20:40)
[2020-08-10] MEDS ORDERED: POTASSIUM CHLORIDE 20 MEQ TABLET PO PRN ×2 (20:40)
[2020-08-10] MEDS ORDERED: POTASSIUM CHLORIDE 40 MEQ in DEXTROSE 5% IN WATER 500 ML IV PRN (20:40)
[2020-08-10] MEDS ORDERED: traZODone HCL 50 MG TABLET PO SCH (21:00)
[2020-08-10] MEDS ORDERED: risperiDONE 1 MG TABLET PO SCH (21:00)
[2020-08-10] MEDS ORDERED: ATORVASTATIN 40 MG TABLET PO SCH (21:00)
--- NOTE | 2020-08-10 22:38 | Discharge Summary ---
Discharge Provider Provider Patient information: Note initiated : 08/10/20 at 10:36 pm Service Date, if different from initiated Date: [] Patient: Xi Smith 80 y/o F admitted on 08/09/20 for seizure. Chief Complaint: [] Date of admission: 08/09/20 18:30 Discharge date: 08/11/20 Primary care physician: Salina Mack Consults: 08/09/20 Consult to Physician [CONS] Stat Comment: Consulting Provider: Eligio Gómez Reason For Exam: Physician to Consult Consult to Physician [CONS] Stat Comment: Consulting Provider: Rishabh Huertas Reason For Exam: Physician to Consult Discharge Meds Discharge Medications Home Medications blood sugar diagnostic #10 each 07/21/20 [Rx Confirmed 08/09/20 Last Taken Unknown] calcium carb-vit D3-minerals 600 mg calcium-400 unit tablet 1 tab PO BID #180 tab 07/21/20 [Rx Confirmed 08/09/20 Last Taken Unknown] cholecalciferol (vitamin D3) 25 mcg (1,000 unit) tablet 25 mcg PO QDAY #90 tab 07/21/20 [Rx Confirmed 08/09/20 Last Taken Unknown] furosemide 40 mg tablet 40 mg PO QAM #30 tab 07/21/20 [Rx Confirmed 08/09/20 Last Taken Unknown] isosorbide mononitrate 30 mg tablet,extended release 24 hr 30 mg PO QDAY #90 tab 07/21/20 [Rx Confirmed 08/09/20 Last Taken Unknown] lancets 30 gauge #100 each 07/21/20 [Rx Confirmed 08/09/20 Last Taken Unknown] pioglitazone 30 mg tablet 30 mg PO QDAY #90 tab 07/21/20 [Rx Confirmed 08/09/20 Last Taken Unknown] potassium chloride 10 mEq tablet,extended release 10 meq PO QDAY #30 tab 07/21/20 [Rx Confirmed 08/09/20 Last Taken Unknown] rosuvastatin 40 mg tablet 40 mg PO QDAY #90 tab 07/21/20 [Rx Confirmed 08/09/20 Last Taken Unknown] trazodone 50 mg tablet See Rx Instructions PO QHS #180 tab 07/21/20 [Rx Confirmed 08/09/20 Last Taken Unknown] valsartan 160 mg tablet 160 mg PO BID #180 tab 07/21/20 [Rx Confirmed 08/09/20 Last Taken Unknown] risperidone 0.5 mg disintegrating tablet 1 mg PO QHS #60 tab 08/05/20 [Rx Confirmed 08/09/20 Last Taken Unknown] docusate calcium 240 mg PO QDAY #30 cap 08/11/20 [Rx Last Taken Unknown] melatonin 3 mg PO HS PRN #30 cap 08/11/20 [Rx Last Taken Unknown] psyllium husk [Metamucil] 0.4 g PO ONCE #30 cap 08/11/20 [Rx Last Taken Unknown] COURSE Hospital Course Hospital course: History of present illness: Ms. Smith is a 80 year old F Presents to the ED for seizure per her son. Most history obtained from the son as patient has advanced dementia Alzheimer's. Per the son she did have several seizures in the past within the past couple years but it was felt that was related to hypoglycemia. Her blood glucose this time was fine. Son states that he got her up and she was in the chair. He went out and came back and he was unresponsive and her eyes were rolling back, he said she was "planking". She has not been on any seizure medication. She recently moved here from [place]. She also has history of chronic kidney disease and chronic anemia and has receives blood transfusions every 3 to 6 months. Per the son she was out of about 30 minutes and was groggy and slurring and then came around and is essentially back to baseline. She lost her bowel function. Patient has history of lymphedema but per son has no history of heart failure or CAD. While in the ER she is noted to have multiple bloody stools. Her hemoglobin 4 days ago was 9.4, it is 8.6 as of this morning. Pending repeat H&H right now. General surgeon was contacted for endoscopy. In the ED she was found to be hyponatremic as well. She had an elevated prolactin. Patient denies any pains or complaints no abdominal pain chest pain shortness of breath. 1/ Patient had significant agitation last night. Was pulled off several NG tube and IV line. Received Haldol and Ativan. No reported seizures since admission. Did have a bloody bowel movement late in the evening and then early this morning was a green bowel movement. 1/5 sleepy this morning, but arousable enough to answer simple questions, partially opens eyes and follows commands, no report of further GI bleeding. more awake this afternoon. H&H stable chemistry stable. Stable for discharge A: *GI Bleed: stopped w/o intervention *Acute blood loss anemia on chronic anemia (receives blood transfusions several times per year): *Suspected seizure: had several seizures past couple years but son says it was felt to be related to hypoglycemia -glucose wnl by EMS, elevated prolactin -CT brain no acute path *Hyponatremia: improved -likely volume depletion/diuretics *Advanced Alzheimer's Dementia: *CKD IV: *DM:on pioglitazone, A1c 7.6 *Chronic lymphedema: *Anxiety/depression: *Obesity: *HTN/HLD: Discharge diagnosis: GI bleed, anemia suspected seizure hyponatremia Secondary discharge diagnosis: Dementia CKD diabetes lymphedema anxiety depression obesity hypertension Time Spent with Patient Time attestation: Total time spent providing and/or coordinating discharge services: Time spent: Greater than 30 minutes EXAM Constitutional Vitals: Temp Pulse Resp BP Pulse Ox 99 F 98 H 22 133/115 98 08/10/20 20:01 08/10/20 20:01 08/10/20 20:01 08/10/20 20:01 08/10/20 20:01 Discharge Data Data Completed and Pending Labs on day of discharge: Labs from last 24 hours 08/10/20 08/10/20 08/09/20 05:49 05:49 19:00 WBC 6.8 RBC 3.02 L Hgb 9.1 L Hct 27.2 L MCV 90.1 MCH 30.1 MCHC 33.5 RDW 13.6 Plt Count 156 MPV 10.8 H Neut % (Auto) 75.8 Lymph % (Auto) 12.9 L Norton % (Auto) 9.5 Eos % (Auto) 1.5 Baso % (Auto) 0.3 Lymph # (Auto) 0.87 L Norton # (Auto) 0.64 Eos # (Auto) 0.10 Baso # (Auto) 0.02 Absolute Neutrophils 5.14 Sodium 129 L Potassium 4.2 Chloride 94 L Carbon Dioxide 23 Anion Gap 12.0 BUN 42 H Creatinine 1.7 H GFR Calculation 27 Glucose 113 H Uric Acid 6.7 Calcium 8.4 L Phosphorus 2.8 Magnesium 1.8 Total Bilirubin 1.5 H Direct Bilirubin 0.2 GGT 8 AST 20 ALT 8 Alkaline Phosphatase 47 Lactate Dehydrogenase 165 Total Protein 5.2 L Albumin 3.1 L Globulin 2.1 L Albumin/Globulin Ratio 1.5 Triglycerides 60 Free T4 1.16 Discharge Plan Patient/Caregiver Discharge Instructions Activity: increase activity as tolerated Diet: Consistent Carbohydrate Activity Restrictions/Additional Instructions: Referral to neurology in 1 to 2 weeks for evaluation of seizure. Referral to see nephrology for chronic kidney disease in 1 to 2 weeks. Prescriptions: New psyllium husk [Metamucil] 0.4 gram capsule 0.4 g PO ONCE Qty: 30 RF: 0 docusate calcium 240 mg capsule 240 mg PO QDAY Qty: 30 RF: 0 melatonin 3 mg capsule 3 mg PO HS PRN (Reason: sleep) Qty: 30 RF: 0 Continued calcium carbonate-vit D3-min 600 mg calcium- 400 unit tablet 1 tab PO BID Qty: 180 RF: 3 Hold Instructions: Doctor's Order cholecalciferol (vitamin D3) 25 mcg (1,000 unit) tablet 25 mcg PO QDAY Qty: 90 RF: 3 isosorbide mononitrate 30 mg tablet extended release 24 hr 30 mg PO QDAY Qty: 90 RF: 3 pioglitazone 30 mg tablet 30 mg PO QDAY Qty: 90 RF: 3 rosuvastatin 40 mg tablet 40 mg PO QDAY Qty: 90 RF: 1 trazodone 50 mg tablet See Rx Instructions PO QHS Qty: 180 RF: 2 valsartan 160 mg tablet 160 mg PO BID Qty: 180 RF: 3 (DME) OneTouch Verio test strips Strip See Rx Instructions .ROUTE .MEDSUPPLY Qty: 10 RF: 0 (DME) lancets [OneTouch Delica Lancets] 30 gauge misc See Rx Instructions .ROUTE .MEDSUPPLY Qty: 100 RF: 0 furosemide 40 mg tablet 40 mg PO QAM Qty: 30 RF: 1 Hold Instructions: Doctor's Order potassium chloride 10 mEq tablet extended release 10 meq PO QDAY Qty: 30 RF: 3 Hold Instructions: Doctor's Order risperidone 0.5 mg tablet,disintegrating 1 mg PO QHS Qty: 60 RF: 1 Follow Up Plan Follow up with: Salina Mack ARNP [Primary Care Provider] - Patient Disposition: Home, Self-Care Prognosis: Fair Overall status at discharge: patient is progressing back to baseline Discharge Orders: Discharge Order (Routine); Ordered 08/11/20 Ordered By: Eligio Marvin CRESPO VTE Deep Vein Thrombosis/Pulmonary Embolism Present on Admission: No
[2020-08-11] MEDS: 0.9 % SODIUM CHLORIDE 1,000 ML IV SCH ×2 (01:38→15:37)
[2020-08-11] MEDS: 0.9 % SODIUM CHLORIDE 10 ML SYRINGE IV SCH ×2 (06:03→15:39)
--- NOTE | 2020-08-11 07:13 | Internal Med Progress Note ---
SUBJECTIVE Subjective Patient information: Note initiated : 08/11/20 at 7:10 am Service Date, if different from initiated Date: [] Patient: Xi Smith a 80 y/o F admitted on 08/09/20 for seizure. Chief Complaint: [] Principal diagnosis: rectal bleeding, dehydration, dementia with agitation Interval history: History of present illness: Ms. Smith is a 80 year old F Presents to the ED for seizure per her son. Most history obtained from the son as patient has advanced dementia Alzheimer's. Per the son she did have several seizures in the past within the past couple years but it was felt that was related to hypoglycemia. Her blood glucose this time was fine. Son states that he got her up and she was in the chair. He went out and came back and he was unresponsive and her eyes were rolling back, he said she was " planking". She has not been on any seizure medication. She recently moved here from [place]. She also has history of chronic kidney disease and chronic anemia and has receives blood transfusions every 3 to 6 months. Per the son she was out of about 30 minutes and was groggy and slurring and then came around and is essentially back to baseline. She lost her bowel function. Patient has history of lymphedema but per son has no history of heart failure or CAD. While in the ER she is noted to have multiple bloody stools. Her hemoglobin 4 days ago was 9.4, it is 8.6 as of this morning. Pending repeat H&H right now. General surgeon was contacted for endoscopy. In the ED she was found to be hyponatremic as well. She had an elevated prolactin. Patient denies any pains or complaints no abdominal pain chest pain shortness of breath. 1/ Patient had significant agitation last night. Was pulled off several NG tube and IV line. Received Haldol and Ativan. No reported seizures since admission. Did have a bloody bowel movement late in the evening and then early this morning was a green bowel movement. 1/ still quite sleepy, but arousable enough to answer simple questions, partially opens eyes and follows commands, no report of further GI bleeding. Review of Systems: denies headache/fever/chills/nausea/vomiting/chest or abdominal pain/cough/dyspnea/diarrhea. Otherwise see above. Constitutional Vitals: Vital Signs Temp Pulse Resp BP Pulse Ox 98.1 F 98 H 16 112/56 95 08/11/20 03:51 08/11/20 03:51 08/11/20 03:51 08/11/20 03:51 08/11/20 03:51 Period Temp Pulse Resp BP Sys/Mitchell Pulse Ox Last 24 Hr 98.1 F-99.5 F 71-101 16-39 95-133/48-115 94-98 Intake and Output 08/10/20 08/11/20 08/11/20 21:59 05:59 13:59 Intake Total 105 100 Output Total 725 1250 Balance -620 -1150 Weight 89.448 kg Intake & Output: Intake & Output 08/10/20 08/11/20 08/11/20 21:59 05:59 13:59 Intake Total 105 100 Output Total 725 1250 Balance -620 -1150 Weight 89.448 kg Intake: IV 105 Keppra 500 mg In Sodium 105 Chloride 0.9% 100 ml @ 200 mls/ hr IV Q12 [facility] Rx#:[id number] Oral 100 Output: Void Amount 722 1250 Other: Meal Lunch Percent of Meal Consumed 0% Urine Appearance Clear Sediment Urine Color Straw Urine Odor Strong Stool Size Moderate Stool Color Marty Colored Stool Consistency Watery Exam: General: Sleeping, No acute Distress, obese Eyes/N/T: PERRL, Head/Neck: neck supple, CV: RRR, No murmurs, Pulm: Clear b/l, no wheezing/rhonchi/rales Abd: soft, nontender, +BS x4 Ext: no clubbing/cyanosis, 1+ b/l LE edema Neuro: still somewhat sedated from medications, moves all extremities, follows commands Skin: warm/dry OBJ DATA Labs CBC & Chem 7: 08/10/20 05:49 08/10/20 05:49 Labs: Abnormal Lab Results 08/10/20 08/10/20 08/09/20 05:49 05:49 19:00 RBC 3.02 L Hgb 9.1 L Hct 27.2 L POC Hct 27 L MPV 10.8 H Lymph % (Auto) 12.9 L Lymph # (Auto) 0.87 L POC Sodium 124 L Sodium 129 L POC Chloride 93 L Chloride 94 L POC BUN 45 H BUN 42 H Creatinine 1.7 H POC Creatinine 2.0 H Glucose 113 H POC Glucose 165 H Osmolality Calcium 8.4 L Total Bilirubin 1.5 H NT-Pro-B Natriuret Pep Total Protein 5.2 L Albumin 3.1 L Globulin 2.1 L TSH Prolactin 08/09/20 08/09/20 08/09/20 18:08 18:08 10:30 RBC Hgb 9.0 L Hct 27.2 L POC Hct MPV Lymph % (Auto) Lymph # (Auto) POC Sodium Sodium 121 L POC Chloride Chloride 87 L POC BUN BUN 54 H Creatinine 2.1 H POC Creatinine Glucose 210 H POC Glucose Osmolality 279 L Calcium Total Bilirubin NT-Pro-B Natriuret Pep 2393.0 H Total Protein Albumin Globulin TSH 5.84 H Prolactin 143.1 H 08/09/20 10:30 RBC 2.86 L Hgb 8.6 L Hct 25.7 L POC Hct MPV 11.0 H Lymph % (Auto) 14.7 L Lymph # (Auto) 0.80 L POC Sodium Sodium POC Chloride Chloride POC BUN BUN Creatinine POC Creatinine Glucose POC Glucose Osmolality Calcium Total Bilirubin NT-Pro-B Natriuret Pep Total Protein Albumin Globulin TSH Prolactin Meds: Medications Acetaminophen (Tylenol) 650 mg PO Q6HP PRN PRN Reason: PAIN/FEVER > 101 Atorvastatin Calcium (Lipitor) 80 mg PO HS [facility] Last Admin: 08/10/20 20:59 Dose: 80 mg Documented by: Dextrose (Dextrose 50%) 0 ml IV UD PRN PRN Reason: Hypoglycemia Diagnostic Test (Pha) (Accu-Chek) 1 each FS ACHS [facility] Last Admin: 08/10/20 20:48 Dose: 1 each Documented by: Diphenhydramine HCl (Benadryl) 50 mg IV Q4HP PRN PRN Reason: Agitation Last Admin: 08/11/20 01:38 Dose: 50 mg Documented by: Glucose (Insta-Glucose) 15 gm PO PRN PRN PRN Reason: Hypoglycemia Haloperidol Lactate (Haldol) 5 mg IV Q6HP PRN PRN Reason: aggiatation Hydroxyzine HCl (Vistaril) 25 mg IM Q6HP PRN PRN Reason: Agitation/anxiety Sodium Chloride (Sodium Chloride 0.9%) 1,000 mls @ 75 mls/hr IV .[id number] [facility] Last Admin: 08/11/20 01:38 Dose: 75 mls/hr Documented by: Levetiracetam 500 mg/ Sodium (Chloride) 105 mls @ 200 mls/hr IV Q12 [facility] Last Admin: 08/10/20 20:49 Dose: Not Given Documented by: Magnesium Sulfate (Magnesium Sulfate) 2 gm in 50 mls @ 50 mls/hr IV UD PRN PRN Reason: Magnesium </= 1.6 Potassium Chloride 40 meq/ (Dextrose) 520 mls @ 130 mls/hr IV UD PRN PRN Reason: Potassium < 3 Insulin Human Lispro (Humalog) 0 unit SQ ACHS [facility]; Protocol Last Admin: 08/10/20 20:49 Dose: Not Given Documented by: Isosorbide Mononitrate (Imdur) 30 mg PO QDAY [facility] Labetalol HCl (Trandate) 0 mg IV Q2HP PRN PRN Reason: Hypertension Ondansetron HCl (Zofran) 4 mg IV Q4HP PRN PRN Reason: Nausea And Vomiting Pantoprazole Sodium (Protonix) 40 mg IV BID [facility] Last Admin: 08/10/20 20:59 Dose: 40 mg Documented by: Pioglitazone HCl (Actos) 30 mg PO DAILY [facility] Potassium Chloride (Kdur) 40 meq PO UD PRN PRN Reason: Potssium is 3-3.5 Potassium Chloride (Kdur) 40 meq PO UD PRN PRN Reason: Potassium < 3 Risperidone (Risperdal) 1 mg PO HS [facility] Last Admin: 08/10/20 21:00 Dose: 1 mg Documented by: Sodium Chloride (Saline Flush) 10 ml IV Q8 [facility] Last Admin: 08/11/20 06:03 Dose: Not Given Documented by: Trazodone HCl (Desyrel) 50 - 100 mg PO QHS [facility] Last Admin: 08/10/20 20:59 Dose: 50 mg Documented by: A/P Narrative A/P Narrative: A: *GI Bleed: stopped w/o intervention *Acute blood loss anemia on chronic anemia (receives blood transfusions several times per year): -1prbc (08/09), h&h stable *Suspected seizure: had several seizures past couple years but son says it was felt to be related to hypoglycemia -glucose wnl by EMS, elevated prolactin -CT brain no acute path *Hyponatremia: improved -likely volume depletion/diuretics *Advanced Alzheimer's Dementia: *CKD IV: *DM:on pioglitazone, A1c 7.6 *Chronic lymphedema: *Anxiety/depression: *Obesity: *HTN/HLD: P: -Gen Surgeon consulted, will hold off on endoscopy for now, no bleeding -monitor H&H. -IV keppra for now -w/u with neurology for further seizure evaluation, EEG/MRI -cont hold home lasix that was recently held as well as calcium supp -hold home ARB while monitoring renal fxn -cont home psych meds -SSI, pioglitazone -cont risperidone -pt/ot -ppx: SCD/ANABELL wraps Time Spent With Patient Time: Total time spent is greater than 50% in coordination of care (as doc umented) at patient's floor/unit and/or counseling patient: QUALITY VTE Deep Vein Thrombosis/Pulmonary Embolism Present on Admission: No
[2020-08-11] MEDS ORDERED: diphenhydrAMINE 50 MG/ML VIAL IV PRN (08:48)
[2020-08-11] MEDS ORDERED: ISOSORBIDE MONONITRATE 30 MG TAB.XL.24H PO SCH (09:00)
[2020-08-11] MEDS ORDERED: PIOGLITAZONE 15 MG TABLET PO SCH (09:00)
[2020-08-11] MEDS ORDERED: hydrOXYzine 50 MG/ML VIAL IM PRN ×2 (09:21→09:22)
[2020-08-11] MEDS ORDERED: hydrOXYzine 25 MG TABLET PO PRN (09:24)
[2020-08-11] MEDS: INSULIN LISPRO 1 UNIT/0.01 ML UNIT SQ SCH ×2 (10:01→13:06)
[2020-08-11] MEDS: levETIRAcetam 500 MG in 0.9 % SODIUM CHLORIDE 100 ML IV SCH (12:44)
[2020-08-11 12:48] LABS: Basophils # (Auto) 0.03 K/mcL (0.00-0.20); Basophils % (Auto) 0.5 % (0.0-2.0); Eosinophils % (Auto) 4.5 % (0.0-7.0); Hematocrit 31.2 % (36.0-48.0); Lymphocytes # (Auto) 1.25 K/mcL (1.50-4.80); Lymphocytes % (Auto) 18.9 % (15.0-49.0); Mean Cell Volume 93.1 fL (80.0-100.0); Mean Corpuscular HGB Conc 32.1 g/dL (31.0-36.0); Mean Platelet Volume 11.1 fL (7.4-10.4); Monocytes # (Auto) 0.44 K/mcL (0.10-0.90); Monocytes % (Auto) 6.7 % (1.0-12.0); Neutrophils % (Auto) 69.4 % (38.0-78.0); Platelet Count 184 K/mcL (140-440); RBC 3.35 M/mcL (4.00-5.20); Red Cell Distribution Width 14.2 % (11.5-14.5); WBC 6.6 K/mcL (4.5-11.0)
[2020-08-11] MEDS: PANTOPRAZOLE 40 MG VIAL IV SCH (12:49)
[2020-08-11 13:10] LABS: ALT/SGPT 10 U/L (<40); AST/SGOT 27 U/L (<32); Albumin 3.5 gm/dL (3.2-5.2); Albumin/Globulin Ratio 1.3 (1.0-2.3); Alkaline Phosphatase 43 U/L (39-117); Blood Urea Nitrogen 27 mg/dL (8-23); Calcium 8.8 mg/dL (8.6-10.4); Carbon Dioxide 23 mmol/L (22-30); Chloride 106 mmol/L (96-108); Globulin 2.7 gm/dL (2.2-3.7); Glomerular Filtration Rate 26; Glucose 165 mg/dL (70-105)
--- NOTE | 2020-08-11 13:32 | General Surgery Progress Note ---
SUBJECTIVE Subjective Patient information: Note initiated : 08/11/20 at 1:26 pm Service Date, if different from initiated Date: [] Patient: Xi Smith 80 y/o F admitted on 08/09/20 for seizure. Chief Complaint: [] Principal diagnosis: rectal bleeding, dehydration, dementia with agitation Interval history: PATIENT IS MORE ALERT TODAY. She has intelligible speech and her mentation is coherent. She has not had any diarrhea. There's been no bloody stools. Potassium is 4, BUN 27, creatinine 1.8, white blood count 6.6, hemoglobin 10. Discussed situation with son and I recommend that she be discharged home and as long as she does not have any further bleeding. She does not need to have colonoscopy. Constitutional Vitals: Vital Signs Temp Pulse Resp BP Pulse Ox 97.5 F 87 16 103/52 95 08/11/20 07:53 08/11/20 07:53 08/11/20 07:53 08/11/20 07:53 08/11/20 07:53 Period Temp Pulse Resp BP Sys/Mitchell Pulse Ox Last 24 Hr 97.5 F-99.5 F 81-101 16-39 103-133/48-115 94-98 Intake and Output 08/10/20 08/11/20 08/11/20 21:59 05:59 13:59 Intake Total 105 100 Output Total 725 1250 Balance -620 -1150 Weight 197 lb 3.2 oz Intake & Output: Intake & Output 08/10/20 08/11/20 08/11/20 21:59 05:59 13:59 Intake Total 105 100 Output Total 725 1250 Balance -620 -1150 Weight 197 lb 3.2 oz Intake: IV 105 Keppra 500 mg In Sodium 105 Chloride 0.9% 100 ml @ 200 mls/ hr IV Q12 [facility] Rx#:[id number] Oral 100 Output: Void Amount 725 1250 Other: Meal Lunch Percent of Meal Consumed 0% Urine Appearance Clear Sediment Urine Color Straw Urine Odor Strong Stool Size Moderate Stool Color Marty Colored Stool Consistency Watery Head Head exam: Present atraumatic and normal inspection Neck Neck exam: Present full ROM Respiratory Respiratory exam: Present normal respiratory exam and CTAB Cardiovascular Cardiovascular exam: Present RRR, +S1 and +S2 GI/Abdominal GI/Abdominal exam: Present normal bowel sounds and soft; Absent distended, mass and tenderness Extremities Exam Extremities exam: Present calf tenderness (mild superficial tenderness of the skin but no evidence of inflammation or phlebitis), full ROM and neurovascular intact Neurological Exam Neurological exam: Present alert and oriented X3; Absent motor sensory deficit Psychiatric Additional comments: general orientation is significantly improved A/P Assessment and plan (1) Hematochezia: Status: Acute Comment: 80 yo woman with advanced dementia admitted with GI bleed in setting of liver mass, multiple recent seizures. Significant hyponateremia. Given history of diarrhea preceding bleeding, and advance atherosclerosis, it is quite possible pt has ischemic colitis. Plan: Colonoscopy per family request tomorrow Consent from son obtained - risks of injury and missed lesions discussed Pt Sons request will restrain and place NGT to faciliate prep Rishabh Huertas MD Surgery (2) Severe dementia: Status: Acute (3) Seizure: Status: Acute (4) Anemia, normocytic normochromic: Status: Acute Narrative A/P Narrative: patient is clinically stable and can be discharged home after cleared by hospitalist. Time Spent With Patient Time: Total time spent is greater than 50% in coordination of care (as documented) at patient's floor/unit and/or counseling patient:
[2020-08-11] MEDS ORDERED: OLANZapine 10 MG VIAL IM PRN (21:00)
== END 2020-08-11 14:56 | disposition home or self-care (01) | DRG 378 ==
LOC: ED 09:48 → ICU 18:30 → MEDSUR 08-10 20:36
PROVIDERS: ADMIT Internal Medicine; ATTEND Internal Medicine

== ENCOUNTER 2021-05-18 10:26 | Inpatient (IN) ==
[2021-05-18] MEDS ORDERED: FUROSEMIDE 40 MG/4 ML VIAL IV ONE (10:49)
[2021-05-18] MEDS ORDERED: ASPIRIN 81 MG TAB.CHEW CHEWED ONE (10:55)
--- NOTE | 2021-05-18 10:55 | Emergency Department Note ---
SOB HPI General Chief Complaint: Shortness of Breath/Dyspnea Stated Complaint: shortness of breath Time Seen by Provider: 05/18/21 10:45 Source: patient, EMS, RN notes reviewed and old records reviewed Mode of arrival: EMS Limitations: other (Dementia) History of Present Illness HPI Narrative: Narrative: Complaint: shortness of breath Onset (ago): week(s) (1) Context: occurred during exertion Severity: mild Consistency/Duration: constant Improves with: rest and upright position Worsens with: lying flat and exertion Known history of: congestive heart failure Associated symptoms: Reports cough, wheezing, orthopnea, palpitations and other (Feeling puffy); Denies chest pain, pain with inspiration, fever, sputum production, lower extremity pain, polyuria, polydipsia, parasthesias, carpopedal spasm, hemoptysis, diaphoresis, nausea/vomiting, syncope, abdominal pain, rash and sense of impending doom Treatment prior to arrival: none Related Data Home oxygen amount: none Home Medications Medication Instructions Recorded Confirmed calcium polycarbophil 625 mg tablet 625 mg PO QDAY tab 09/23/20 ferrous gluconate 324 mg (38 mg 324 mg PO QDAY 09/23/20 iron) tablet isosorbide mononitrate 30 mg PO DAILY 05/18/21 05/18/21 Previous Rx's Medication Instructions Recorded blood sugar diagnostic #10 each 07/21/20 cholecalciferol (vitamin D3) 25 25 mcg PO QDAY #90 tab 07/21/20 mcg (1,000 unit) tablet lancets 30 gauge #100 each 07/21/20 melatonin 3 mg capsule 3 mg PO HS #30 cap 09/23/20 pioglitazone 30 mg tablet 30 mg PO QDAY #90 tab 09/28/20 trazodone 50 mg tablet 50 mg PO QHS #30 tab 09/28/20 valsartan 160 mg tablet 160 mg PO BID #180 tab 09/28/20 aripiprazole 10 mg tablet 10 mg PO QHS #30 ea 09/29/20 nystatin 100,000 unit/gram topical 1 applic TOPICAL QID #30 g 04/27/21 powder rosuvastatin 40 mg tablet See Rx Instructions .ROUTE 05/03/21 .COMPLEX #30 each Allergies Allergy/AdvReac Type Severity Reaction Status Date / Time quetiapine AdvReac Intermediate extreme Verified 08/20/20 14:11 bayron Review of Systems ROS ROS Narrative: Narrative: Limitations: ROS unobtainable due to patients medical condition [facility] Narrative Patient History Narrative: Narrative: Medical/Surgical/Family History All Active Problems (Updated 05/18/21 @ 12:46 by Robert Sanchez MD) Congestive heart failure (Acute) Acute hyperkalemia (Acute) Elevated troponin (Acute) Acute renal insufficiency (Acute) Behavior disturbance (Acute) Severe dementia (Acute) Hematochezia (Acute) CHF (congestive heart failure) (Acute) Seizure (Acute) Anemia, normocytic normochromic (Acute) Chronic kidney disease (Acute) SunDown syndrome (Acute) Acute coronary syndrome (Acute) Abnormal CT scan, head (Acute) Injury due to fall (Acute) Liver mass (Acute) Atherosclerosis of aorta (Acute) Abnormal finding on urinalysis (Acute) Acute renal failure (Acute) Hypertension (Acute) Type 2 diabetes mellitus with hyperlipidemia (Acute) Alzheimer's dementia (Acute) GERD (gastroesophageal reflux disease) (Acute) Hx of transient ischemic attack (TIA) (Acute) Major depressive disorder, recurrent episode (Acute) Vitamin D deficiency (Acute) Hx of colonoscopy (Acute) 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 30-59 (Acute) Osteoporosis (Acute) Anxiety (Acute) Chronic heartburn (Acute) Vascular dementia without behavioral disturbance (Chronic) Medical History (Updated 05/18/21 @ 12:46 by Robert Sanchez MD) Abnormal CT scan, head Abnormal finding on urinalysis Acute coronary syndrome Acute renal failure Alzheimer's dementia Anxiety Atherosclerosis of aorta Chronic heartburn GERD (gastroesophageal reflux disease) Hx of transient ischemic attack (TIA) Hypertension Injury due to fall Liver mass Major depressive disorder, recurrent episode Osteoporosis 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 30-59 Type 2 diabetes mellitus with hyperlipidemia Vascular dementia without behavioral disturbance Vitamin D deficiency Surgical History History of cholecystectomy History of hip surgery Hx of colonoscopy Social History Smoking Status: Never smoker Alcohol Intake Frequency: does not drink Substance Use: does not use Exam Narrative Narrative: Narrative: General Limitations: other (Dementia) General appearance: Present alert, in no apparent distress and obese Head Head: Present atraumatic and normocephalic Eye Eye: Present normal appearance, PERRL and EOMI; Absent periorbital swelling ENT ENT: Present normal exam and mucous membranes moist Neck Neck: Present normal inspection and full ROM; Absent tenderness, meningismus and lymphadenopathy Chest Chest: Present normal inspection; Absent tenderness Respiratory Respiratory: Present rales/crackles and decreased breath sounds; Absent respiratory distress, wheezes and stridor Cardiovascular Cardiovascular: Present regular rate, normal rhythm and JVD; Absent systolic murmur and rubs Adbominal Abdominal: Present soft; Absent distention, tenderness, guarding and rebound Extremities Extremities: Present normal inspection, full ROM, normal capillary refill and pretibial edema; Absent tenderness, pedal edema and calf tenderness Back Back: Present normal inspection; Absent CVA tenderness (R) and CVA tenderness (L) Neurological Neurological: Present alert and oriented X3 Psychiatric Psychiatric: Present normal affect and normal mood Skin Skin: Present warm (WNL); Absent rash Course Vital Signs Vital signs: Vital Signs Temperature 98.1 F 05/18/21 10:31 Pulse Rate 84 05/18/21 10:31 Respiratory Rate 16 05/18/21 10:31 Blood Pressure 101/73 05/18/21 10:31 Pulse Oximetry (%) 98 05/18/21 10:31 Temperature 98.1 F 05/18/21 10:57 Pulse Rate 61 05/18/21 12:03 Respiratory Rate 21 05/18/21 12:03 Blood Pressure 93/44 05/18/21 12:03 Pulse Oximetry (%) 97 05/18/21 12:03 [facility] MDM Narrative Medical decision making narrative: Narrative: 81-year-old female with elevated potassium acute renal insufficiency and congestive heart failure came in complaining about shortness of breath associat ed with congestive heart failure. She was hypotensive and received 20 mg of IV Lasix received albuterol calcium bicarb for her hyperkalemia her anemia is acute on chronic and has been at these levels in the past. I discussed patient with hospitalist who graciously agreed to admission for congestive heart failure-Per kalemia elevated troponin and renal insufficiency Differential Diagnosis Differential Diagnosis: CHF pneumonia PE ACS Medical Records Medical records reviewed: Yes I reviewed the patient's medical records. Lab Data Lab results reviewed: Yes I reviewed the patient's lab results. Result diagrams: 05/18/21 10:57 05/18/21 10:57 Labs: Lab Results 05/18/21 05/18/21 05/18/21 Range/Units 10:57 10:57 10:57 WBC 3.7 L (4.5-11.0) K/mcL RBC 2.71 L (3.59-5.38) M/mcL Hgb 8.6 L (11.2-15.7) g/dL Hct 26.4 L (34.1-44.9) % MCV 97.4 (80.0-100.0) fL MCH 31.7 (26.0-34.0) pg MCHC 32.6 (31.0-36.0) g/dL RDW 13.7 (11.5-14.5) % Plt Count 174 (140-440) K/mcL MPV 10.4 (7.4-10.4) fL Neut % (Auto) 63.4 (38.0-78.0) % Lymph % (Auto) 25.1 (15.5-49.0) % [place] % (Auto) 7.5 (1.0-12.0) % Eos % (Auto) 3.5 (0.0-7.0) % Baso % (Auto) 0.5 (0.0-2.0) % Lymph # (Auto) 0.94 L (1.50-4.80) K/mcL [place] # (Auto) 0.28 (0.10-0.90) K/mcL Eos # (Auto) 0.13 (0.00-0.70) K/mcL Baso # (Auto) 0.02 (0.00-0.30) K/mcL Absolute Neutrophils 2.37 (1.80-8.00) K/mcL Sodium 139 (133-145) mmol/L Potassium 5.4 H (3.3-5.1) mmol/L Chloride 105 (96-108) mmol/L Carbon Dioxide 24 (22-30) mmol/L Anion Gap 10.0 (8.0-16.0) BUN 40 H (8-23) mg/dL Creatinine 2.0 H (0.6-1.1) mg/dL GFR Calculation 22 Glucose 218 H (70-105) mg/dL Calcium 9.3 (8.6-10.4) mg/dL Total Bilirubin 0.6 (0.1-1.0) mg/dL AST 22 (<32) U/L ALT 15 (<40) U/L Alkaline Phosphatase 49 (39-117) U/L Troponin T 0.03 H (<0.03) ng/mL NT-Pro-B Natriuret Pep 7126.0 H (<450.0) pg/mL Total Protein 6.2 (5.9-8.4) gm/dL Albumin 3.7 (3.2-5.2) gm/dL Globulin 2.5 (2.2-3.7) gm/dL Albumin/Globulin Ratio 1.5 (1.0-2.3) Radiology Data Radiology results reviewed: Yes I reviewed the patient's radiology results. Radiology results narrative: Chest x-ray IMPRESSION: Subtle bibasilar infiltrates and possible small subpulmonic pleural effusions Interpreted and Authenticated by: Javon Schuler 05/18/21 EKG Data EKG #1: EKG attestation: Yes I reviewed and interpreted this EKG. and Yes There are no EKG findings of acute coronary syndrome EKG shows normal: sinus rhythm Rate: normal (85) Rhythm: NSR [place]/QRS: LBBB Interpretation: nonspecific ST-T wave changes Pulse Oximetry Data Pulse Ox %: 98 Interpretation: 98% on room air Discharge Plan Patient/Caregiver Discharge Instructions Pt seen by NURSE EXAMINER/PA only: No Clinical Impression: Congestive heart failure, Acute hyperkalemia, Elevated troponin, Acute renal insufficiency Patient Disposition: Xfer As Inpt ([facility]) Follow up with: Salina Mack ARNP [Primary Care Provider] - Prescriptions: No Action cholecalciferol (vitamin D3) 25 mcg (1,000 unit) tablet 25 mcg PO QDAY Qty: 90 RF: 3 (DME) OneTouch Verio test strips Strip See Rx Instructions .ROUTE .MEDSUPPLY Qty: 10 RF: 0 (DME) lancets [OneTouch Delica Lancets] 30 gauge misc See Rx Instructions .ROUTE .MEDSUPPLY Qty: 100 RF: 0 ferrous gluconate 324 mg (38 mg iron) tablet 324 mg PO QDAY RF: 0 calcium polycarbophil [FiberCon] 625 mg tablet 625 mg PO QDAY RF: 0 melatonin 3 mg capsule 3 mg PO HS Qty: 30 RF: 0 valsartan 160 mg tablet 160 mg PO BID Qty: 180 RF: 3 trazodone 50 mg tablet 50 mg PO QHS Qty: 30 RF: 11 pioglitazone 30 mg tablet 30 mg PO QDAY Qty: 90 RF: 3 aripiprazole 10 mg tablet 10 mg PO QHS Qty: 30 RF: 10 nystatin 100,000 unit/gram powder 1 applic topical QID Qty: 30 RF: 10 rosuvastatin 40 mg tablet See Rx Instructions .ROUTE .COMPLEX Qty: 30 RF: 10 isosorbide mononitrate 30 mg tablet extended release 24 hr 30 mg PO DAILY RF: 0
[2021-05-18 11:30] LABS: Basophils # (Auto) 0.02 K/mcL (0.00-0.30); Basophils % (Auto) 0.5 % (0.0-2.0); Eosinophils # (Auto) 0.13 K/mcL (0.00-0.70); Eosinophils % (Auto) 3.5 % (0.0-7.0); Hematocrit 26.4 % (34.1-44.9); Hemoglobin 8.6 g/dL (11.2-15.7); Lymphocytes # (Auto) 0.94 K/mcL (1.50-4.80); Lymphocytes % (Auto) 25.1 % (15.5-49.0); Mean Cell Volume 97.4 fL (80.0-100.0); Mean Corpuscular HGB Conc 32.6 g/dL (31.0-36.0); Mean Platelet Volume 10.4 fL (7.4-10.4); Monocytes # (Auto) 0.28 K/mcL (0.10-0.90); Monocytes % (Auto) 7.5 % (1.0-12.0); Neutrophils % (Auto) 63.4 % (38.0-78.0); Platelet Count 174 K/mcL (140-440); RBC 2.71 M/mcL (3.59-5.38); Red Cell Distribution Width 13.7 % (11.5-14.5); WBC 3.7 K/mcL (4.5-11.0)
--- NOTE | 2021-05-18 11:44 | XRay Report ---
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 There are calcified plaques along the wall of the arch. This is unchanged from prior chest CT done on 08/16/13. The heart is borderline enlarged but magnified by portable technique. The pulmonary vessels, best seen in the upper lobes are normal in caliber. There is a vague haziness in the lung parenchyma in both lung bases. Contour of the diaphragms suggests the presence of small subpulmonic bilateral pleural effusions. IMPRESSION: Subtle bibasilar infiltrates and possible small subpulmonic pleural effusions Interpreted and Authenticated by: Javon Schuler 05/18/21
[2021-05-18 11:54] LABS: ALT/SGPT 15 U/L (<40); AST/SGOT 22 U/L (<32); Albumin 3.7 gm/dL (3.2-5.2); Albumin/Globulin Ratio 1.5 (1.0-2.3); Alkaline Phosphatase 49 U/L (39-117); Bilirubin,Total 0.6 mg/dL (0.1-1.0); Blood Urea Nitrogen 40 mg/dL (8-23); Calcium 9.3 mg/dL (8.6-10.4); Carbon Dioxide 24 mmol/L (22-30); Chloride 105 mmol/L (96-108); Globulin 2.5 gm/dL (2.2-3.7); Glomerular Filtration Rate 22; Glucose 218 mg/dL (70-105)
--- NOTE | 2021-05-18 12:15 | EKG ---
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
[2021-05-18] MEDS ORDERED: SODIUM BICARBONATE ADULT 50 MEQ/50 ML SYRINGE IV ONE (12:40)
[2021-05-18] MEDS ORDERED: CALCIUM GLUCONATE 4.65 MEQ/10 ML VIAL IV ONE (12:40)
[2021-05-18] MEDS ORDERED: ALBUTEROL SULFATE 5 MG/ML NEB SOLUTION BOTTLE NEB ONE (12:40)
[2021-05-18] MEDS ORDERED: SODIUM BICARBONATE 50 MEQ/50 ML VIAL IV ONE (13:15)
--- NOTE | 2021-05-18 13:32 | Internal Med History&Physical ---
HPI History of Present Illness Patient information: Note initiated : 05/18/21 at 1:25 pm Service Date, if different from initiated Date: [] Patient: Xi Smith a 81 y/o F admitted on for shortness of breath. Chief Complaint: [CHF exacerbation] History of present illness: Ms. Smith is a 81 year old F history of type 2 diabetes mellitus, essential hypertension, mixed dyslipidemia, CHF, chronic renal disease stage IV, presenting with acute on chronic shortness of breath. The history is severely limited by clinical situations and the fact that there is no family available. Patient was sent to our ED for evaluations due to acute on chronic onset shortness of breath. Vital signs within normal limits upon ED presentations including oxygen saturation in the mid to high 90s on room air. Labs significant for mild leukopenia with WBC 3.7. Electrolytes significant for hypokalemia with serum potassium level of 5.4. Serum creatinine level 2.0 with baseline is around 1.8. Glucose level 218. BNP level 7100. Serum troponin level 0.03. Covid Mimi screening negative. Chest x-ray showing mild bibasilar infiltrate as well as mild bilateral pleural effusions. Patient is coming of mild shortness of breath. She denies any chest pain. She denies any palpitation. She denies any cough or sputum productions. She denies any fever chills or diaphoresis. She denies any general body weakness. She is coming of confusions. Constitutional Constitutional: Absent chills, excessive sweating, fatigue, fever(s) and weakness EENT Eyes: Absent blurry vision, change in vision, loss of vision and other visual disturbances Ears: Absent decreased hearing and tinnitus Nose, mouth and throat: Absent abnormal hearing, dry mouth, headache(s), nasal congestion and sore throat Cardiovascular Cardiovascular: Absent chest pain, chest pain at rest, edema, irregular heart rhythm and palpatations Respiratory Respiratory: Present dyspnea; Absent cough and wheezing Gastrointestinal Gastrointestinal: Absent abdominal pain, constipation, diarrhea, nausea and vomiting Musculoskeletal Musculoskeletal: Absent back pain, deformity, limited range of motion, muscle cramps, muscle weakness and numbness Integumentary Integumentary: Absent lesions, rash and wounds Neurological Neurological: Present confusion; Absent focal weakness, headache(s) and numbness Psychiatric Psychiatric: Absent anxiety, depression and hallucinations PFSH PFSH All Active Problems (Updated 05/18/21 @ 13:39 by Lázaro Kilgore MD) Obesity (BMI 30.0-34.9) (Acute) Community acquired pneumonia (Acute) Hyperkalemia (Acute) Chronic kidney disease, stage 4 (severe) (Acute) CHF exacerbation (Acute) Congestive heart failure (Acute) Acute hyperkalemia (Acute) Elevated troponin (Acute) Acute renal insufficiency (Acute) Behavior disturbance (Acute) Severe dementia (Acute) Hematochezia (Acute) CHF (congestive heart failure) (Acute) Seizure (Acute) Anemia, normocytic normochromic (Acute) Chronic kidney disease (Acute) SunDown syndrome (Acute) Acute coronary syndrome (Acute) Abnormal CT scan, head (Acute) Injury due to fall (Acute) Liver mass (Acute) Atherosclerosis of aorta (Acute) Abnormal finding on urinalysis (Acute) Acute renal failure (Acute) Hypertension (Acute) Type 2 diabetes mellitus with hyperlipidemia (Acute) Alzheimer's dementia (Acute) GERD (gastroesophageal reflux disease) (Acute) Hx of transient ischemic attack (TIA) (Acute) Major depressive disorder, recurrent episode (Acute) Vitamin D deficiency (Acute) Hx of colonoscopy (Acute) 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 30-59 (Acute) Osteoporosis (Acute) Anxiety (Acute) Chronic heartburn (Acute) Vascular dementia without behavioral disturbance (Chronic) Medical History (Updated 05/18/21 @ 13:39 by Lázaro Kilgore MD) Abnormal CT scan, head Abnormal finding on urinalysis Acute coronary syndrome Acute renal failure Alzheimer's dementia Anxiety Atherosclerosis of aorta Chronic heartburn GERD (gastroesophageal reflux disease) Hx of transient ischemic attack (TIA) Hypertension Injury due to fall Liver mass Major depressive disorder, recurrent episode Osteoporosis 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 30-59 Type 2 diabetes mellitus with hyperlipidemia Vascular dementia without behavioral disturbance Vitamin D deficiency Surgical History History of cholecystectomy History of hip surgery Hx of colonoscopy Social History lives independently: No marital status: alcohol intake frequency: does not drink substance use type: does not use MEDS/ALLERGIES Home Medications and Allergies Home Medications Medication Instructions Recorded Confirmed Type blood sugar diagnostic #10 each 07/21/20 05/18/21 Rx cholecalciferol (vitamin D3) 25 25 mcg PO QDAY #90 tab 07/21/20 05/18/21 Rx mcg (1,000 unit) tablet lancets 30 gauge #100 each 07/21/20 05/18/21 Rx calcium polycarbophil 625 mg tablet 625 mg PO QDAY tab 09/23/20 05/18/21 History ferrous gluconate 324 mg (38 mg 324 mg PO QDAY 09/23/20 05/18/21 History iron) tablet melatonin 3 mg capsule 3 mg PO HS #30 cap 09/23/20 05/18/21 Rx pioglitazone 30 mg tablet 30 mg PO QDAY #90 tab 09/28/20 05/18/21 Rx trazodone 50 mg tablet 50 mg PO QHS #30 tab 09/28/20 05/18/21 Rx valsartan 160 mg tablet 160 mg PO BID #180 tab 09/28/20 05/18/21 Rx aripiprazole 10 mg tablet 10 mg PO QHS #30 ea 09/29/20 05/18/21 Rx nystatin 100,000 unit/gram topical 1 applic TOPICAL QID #30 g 04/27/21 05/18/21 Rx powder rosuvastatin 40 mg tablet See Rx Instructions .ROUTE 05/03/21 05/18/21 Rx .COMPLEX #30 each isosorbide mononitrate 30 mg PO DAILY 05/18/21 05/18/21 History Allergies Allergy/AdvReac Type Severity Reaction Status Date / Time quetiapine AdvReac Intermediate extreme Verified 08/20/20 14:11 fatique EXAM Constitutional Vitals: Temp Pulse Resp BP Pulse Ox 36.7 C 66 22 110/62 97 05/18/21 10:57 05/18/21 12:31 05/18/21 13:01 05/18/21 13:01 05/18/21 12:31 General appearance: cooperative and no acute distress Head Head exam: Present atraumatic and normocephalic Eye Eye exam: Present EOMI and PERRL ENT ENT exam: Present mucous membranes moist, normal exam and normal external ear exam Neck Neck exam: Present normal inspection; Absent lymphadenopathy, tenderness and thyromegaly Respiratory Respiratory exam: Absent accessory muscle use, respiratory distress and wheezes Cardiovascular Cardiovascular exam: Present normal rate and rhythm; Absent JVD GI/Abdominal GI/Abdominal exam: Present normal bowel sounds and soft; Absent organomegaly and tenderness Extremities Exam Extremities exam: Present full ROM, normal capillary refill, normal inspection and pedal edema; Absent tenderness Neurological Exam Neurological exam: Present alert and CN II-XII intact; Absent motor sensory deficit and oriented X3 Additional comments: oriented X2 to person and place only Psychiatric Psychiatric exam: Present normal affect and normal mood; Absent anxious and depressed Skin Skin exam: Present dry and intact DATA Data Completed and Pending Labs: Labs from last 24 hours 05/18/21 05/18/21 05/18/21 12:58 10:57 10:57 WBC RBC Hgb Hct MCV MCH MCHC RDW Plt Count MPV Neut % (Auto) Lymph % (Auto) Barton % (Auto) Eos % (Auto) Baso % (Auto) Lymph # (Auto) Barton # (Auto) Eos # (Auto) Baso # (Auto) Absolute Neutrophils Sodium 139 Potassium 5.4 H Chloride 105 Carbon Dioxide 24 Anion Gap 10.0 BUN 40 H Creatinine 2.0 H GFR Calculation 22 Glucose 218 H Calcium 9.3 Total Bilirubin 0.6 AST 22 ALT 15 Alkaline Phosphatase 49 Troponin T Pending 0.03 H NT-Pro-B Natriuret Pep 7126.0 H Total Protein 6.2 Albumin 3.7 Globulin 2.5 Albumin/Globulin Ratio 1.5 05/18/21 10:57 WBC 3.7 L RBC 2.71 L Hgb 8.6 L Hct 26.4 L MCV 97.4 MCH 31.7 MCHC 32.6 RDW 13.7 Plt Count 174 MPV 10.4 Neut % (Auto) 63.4 Lymph % (Auto) 25.1 Barton % (Auto) 7.5 Eos % (Auto) 3.5 Baso % (Auto) 0.5 Lymph # (Auto) 0.94 L Barton # (Auto) 0.28 Eos # (Auto) 0.13 Baso # (Auto) 0.02 Absolute Neutrophils 2.37 Sodium Potassium Chloride Carbon Dioxide Anion Gap BUN Creatinine GFR Calculation Glucose Calcium Total Bilirubin AST ALT Alkaline Phosphatase Troponin T NT-Pro-B Natriuret Pep Total Protein Albumin Globulin Albumin/Globulin Ratio A/P Assessment and plan (1) CHF exacerbation: Status: Acute (2) Elevated troponin: Status: Acute (3) Anemia, normocytic normochromic: Status: Acute (4) Hypertension: Status: Acute (5) Type 2 diabetes mellitus with hyperlipidemia: Status: Acute (6) Chronic kidney disease, stage 4 (severe): Status: Acute (7) Hyperkalemia: Status: Acute (8) Community acquired pneumonia: Status: Acute (9) Obesity (BMI 30.0-34.9): Status: Acute Narrative A/P Narrative: Assessment and plan: 1. Acute on chronic respiratory failure secondary to CHF exacerbation as well as bibasilar community-acquired pneumonia: Inpatient MedSurg with telemetry Strict intake and output Daily weight 2 L/days fluid restrictions 2D echocardiogram Lactic acid Procalcitonin Blood culture CBC with auto differential in the morning to trend WBC Lasix 20 mg IV twice daily Rocephin Zithromax Beta-drew contraindicated in the context of acute CHF exacerbation Hold ANABELL inhibitor/ARB given her acute hypokalemia The decision is whether to start spironolactone or not depending on the echocardiogram result Supplemental oxygen as needed titrate to achieve SPO2 above or equal to 92% DuoNeb nebulizer every 4 as needed wheezing Robitussin-DM as needed cough #2 hyper kalemia: Hold ANABELL inhibitor or ARB Status post albuterol, IV Lasix, and calcium IV given in the ED No EKG changes associated with hyperkalemia suggest peak T waves Repeat BMP in the morning to trend serum potassium level #3 chronic renal disease stage IV chronic sign avoid nephrotoxic agent Saline lock with Lasix as part of treatment for CHF exacerbation BMP the morning to trend kidney function #4 essential hypertension: Currently borderline hypotensive Hold ANABELL inhibitor or ARB given the soft blood pressure as well as acute hyperk alemia #5 history of mixed dyslipidemia: Continue statin therapy 6. Type 2 diabetes mellitus, Hemoglobin A1c Pioglitazone Correctional scale insulin therapy ACH S Accu-Chek [facility] Hyperkalemia protocol Diabetic diet #7 obesity: Constipation lifestyle modification including regular exercise and healthy diet in order to lose weight #8 normocytic normochromic anemia: Likely associated with chronic kidney disease stage IV CBC with auto differential in the morning to trend H&H level and will transfuse PRBC if hemoglobin is less than 0.7, active bleeding, or if patient becomes symptomatic from anemia Continue iron oral supplement Prophylaxis: Continue oral PPI from home regiment DVT prophylaxis: Heparin CODE STATUS: Full code Prognosis: Guarded Disposition: Patient MedSurg Time Spent With Patient Time: Total time spent is greater than 50% in coordination of care (as documented) at patient's floor/unit and/or counseling patient: Total time spent with greater than 50% in coordination of care (as documented) at patient's floor/unit and/or counseling patient:: Greater than 35 minutes
[2021-05-18] MEDS ORDERED: guaiFENesin/DEXTROMETHORPHAN ORAL SOL PO PRN ×2 (13:35→14:34)
[2021-05-18] MEDS ORDERED: IPRATROPIUM/ALBUTEROL 3 ML AMPUL.NEB NEB PRN ×2 (13:35→14:34)
[2021-05-18] MEDS ORDERED: ONDANSETRON 4 MG/2 ML VIAL IV PRN (14:34)
[2021-05-18] MEDS ORDERED: ACETAMINOPHEN 325 MG TABLET PO PRN (14:34)
[2021-05-18] MEDS ORDERED: DEXTROSE 50% 50 ML VIAL IV PRN (14:34)
[2021-05-18] MEDS ORDERED: cefTRIAXone 1 GM in DEXTROSE 5% IN WATER 50 ML IV SCH (14:34)
[2021-05-18] MEDS ORDERED: DEXTROSE 31 GM ORAL.SUSP PO PRN (14:34)
[2021-05-18] MEDS: AZITHROMYCIN 500 MG in DEXTROSE 5% IN WATER 250 ML IV SCH (14:57)
[2021-05-18] MEDS: 0.9 % SODIUM CHLORIDE 10 ML SYRINGE IV SCH (15:20)
[2021-05-18 15:49] LABS: Hemoglobin A1C 6.6 % Hgb (4.0-6.0)
[2021-05-18] MEDS: FUROSEMIDE 20 MG/2 ML VIAL IV SCH (16:34)
[2021-05-18] MEDS: cefTRIAXone 1 GM VIAL IV SCH (16:34)
[2021-05-18] MEDS: INSULIN LISPRO 1 UNIT/0.01 ML UNIT SQ SCH ×2 (16:36→21:07)
[2021-05-18] MEDS: NYSTATIN POWDER BOTTLE 15GM TOPICAL SCH ×2 (16:37→21:16)
[2021-05-18] MEDS ORDERED: NYSTATIN POWDER BOTTLE 15GM TOPICAL SCH (17:00)
[2021-05-18] MEDS ORDERED: traZODone HCL 50 MG TABLET PO SCH (21:00)
[2021-05-18] MEDS ORDERED: ARIPIPRAZOLE 5 MG TABLET PO SCH (21:00)
[2021-05-18] MEDS ORDERED: SIMVASTATIN 40 MG TABLET PO SCH (21:00)
[2021-05-18] MEDS ORDERED: MELATONIN 3 MG TABLET PO SCH (21:00)
[2021-05-18] MEDS: ARIPIPRAZOLE 5 MG TABLET PO SCH (21:02)
[2021-05-18] MEDS: SENNOSIDES 1 TABLET PO SCH (21:02)
[2021-05-18] MEDS: MELATONIN 3 MG TABLET PO SCH (21:02)
[2021-05-18] MEDS: traZODone HCL 50 MG TABLET PO SCH (21:02)
[2021-05-18] MEDS: DOCUSATE SODIUM 100 MG CAPSULE PO SCH (21:02)
[2021-05-18] MEDS: HEPARIN 5,000 UNIT/ML VIAL SQ SCH (21:03)
[2021-05-18] MEDS: SIMVASTATIN 40 MG TABLET PO SCH (22:30)
[2021-05-19] MEDS: 0.9 % SODIUM CHLORIDE 10 ML SYRINGE IV SCH ×3 (00:58→13:38)
[2021-05-19 06:51] LABS: Basophils # (Auto) 0.02 K/mcL (0.00-0.30); Basophils % (Auto) 0.5 % (0.0-2.0); Eosinophils # (Auto) 0.14 K/mcL (0.00-0.70); Eosinophils % (Auto) 3.5 % (0.0-7.0); Hematocrit 23.5 % (34.1-44.9); Hemoglobin 7.3 g/dL (11.2-15.7); Lymphocytes # (Auto) 1.07 K/mcL (1.50-4.80); Lymphocytes % (Auto) 26.7 % (15.5-49.0); Mean Cell Volume 98.7 fL (80.0-100.0); Mean Corpuscular HGB Conc 31.1 g/dL (31.0-36.0); Mean Platelet Volume 10.7 fL (7.4-10.4); Monocytes # (Auto) 0.43 K/mcL (0.10-0.90); Monocytes % (Auto) 10.7 % (1.0-12.0); Neutrophils % (Auto) 58.6 % (38.0-78.0); Platelet Count 157 K/mcL (140-440); RBC 2.38 M/mcL (3.59-5.38); Red Cell Distribution Width 14.1 % (11.5-14.5)
[2021-05-19 07:08] LABS: Blood Urea Nitrogen 47 mg/dL (8-23); Calcium 9.3 mg/dL (8.6-10.4); Carbon Dioxide 24 mmol/L (22-30); Chloride 103 mmol/L (96-108); Glomerular Filtration Rate 20; Glucose 106 mg/dL (70-105)
[2021-05-19] MEDS ORDERED: FERROUS GLUCONATE 324 MG TABLET PO SCH (08:00)
[2021-05-19] MEDS: cefTRIAXone 1 GM VIAL IV SCH (08:33)
[2021-05-19] MEDS: FUROSEMIDE 20 MG/2 ML VIAL IV SCH ×2 (08:33→16:11)
[2021-05-19] MEDS: HEPARIN 5,000 UNIT/ML VIAL SQ SCH (08:34)
[2021-05-19] MEDS: INSULIN LISPRO 1 UNIT/0.01 ML UNIT SQ SCH ×3 (08:34→16:12)
[2021-05-19] MEDS: VITAMIN D3 1,000 UNIT TABLET PO SCH (08:35)
[2021-05-19] MEDS: DOCUSATE SODIUM 100 MG CAPSULE PO SCH (08:35)
[2021-05-19] MEDS: ISOSORBIDE MONONITRATE 30 MG TAB.XL.24H PO SCH (08:36)
[2021-05-19] MEDS: FERROUS GLUCONATE 324 MG TABLET PO SCH (08:36)
[2021-05-19] MEDS: CALCIUM POLYCARBOPHIL 1 TABLET PO SCH (08:36)
[2021-05-19] MEDS: NYSTATIN POWDER BOTTLE 15GM TOPICAL SCH ×3 (08:37→16:11)
[2021-05-19] MEDS ORDERED: PIOGLITAZONE 15 MG TABLET PO SCH ×2 (09:00)
[2021-05-19] MEDS ORDERED: ISOSORBIDE MONONITRATE 30 MG TAB.XL.24H PO SCH (09:00)
[2021-05-19] MEDS ORDERED: CALCIUM POLYCARBOPHIL 1 TABLET PO SCH (09:00)
[2021-05-19] MEDS ORDERED: VITAMIN D3 1,000 UNIT TABLET PO SCH (09:00)
[2021-05-19] MEDS ORDERED: 0.9 % SODIUM CHLORIDE 250 ML IV SCH (10:45)
--- NOTE | 2021-05-19 10:52 | Internal Med Progress Note ---
SUBJECTIVE Subjective Patient information: Note initiated : 05/19/21 at 10:45 am Service Date, if different from initiated Date: [] Patient: Xi Smith 81 y/o F admitted on 05/18/21 for shortness of breath. Chief Complaint: [CHF exacerbation and community acquired pneumonia] Interval history: History of present illness: Ms. Smith is a 81 year old F history of type 2 diabetes mellitus, essential hypertension, mixed dyslipidemia, CHF, chronic renal disease stage IV, presenting with acute on chronic shortness of breath. The history is severely limited by clinical situations and the fact that there is no family available. Patient was sent to our ED for evaluations due to acute on chronic onset shortness of breath. Vital signs within normal limits upon ED presentations including oxygen saturation in the mid to high 90s on room air. Labs significant for mild leukopenia with WBC 3.7. Electrolytes significant for hypokalemia with serum potassium level of 5.4. Serum creatinine level 2.0 with baseline is around 1.8. Glucose level 218. BNP level 7100. Serum troponin level 0.03. Covid Mimi screening negative. Chest x-ray showing mild bibasilar infiltrate as well as mild bilateral pleural effusions. Patient is coming of mild shortness of breath. She denies any chest pain. She denies any palpitation. She denies any cough or sputum productions. She denies any fever chills or diaphoresis. She denies any general body weakness. She is coming of confusions. 05/19: Afebrile overnight. Remains on room air. Serum troponin 0.03 0.04 0.06 0.41 0.66. ECG no signs of acute ischemia. Denies chest pain, palpitation, or SOB. Denies anxiety. Spoke with telegraph inspector from [facility] Dr. Garza, said it was likely type 2 AK demand ischemia. Would recommend serial troponin-i without heparinization or catheterization. Hemoglobin 8.6-->7.3 this morning. Constitutional Vitals: Vital Signs Temp Pulse Resp BP Pulse Ox 36.2 C 64 24 H 100/61 93 05/19/21 10:00 05/19/21 10:00 05/19/21 10:00 05/19/21 10:00 05/19/21 10:00 Period Temp Pulse Resp BP Sys/Mitchell Pulse Ox Last 24 Hr 35.8 C-36.8 C 61-93 14-27 80-113/44-70 93-100 Intake and Output 05/18/21 05/19/21 05/19/21 21:59 05:59 13:59 Intake Total 250 240 Output Total 775 Balance 250 -535 Weight 89.358 kg Intake & Output: Intake & Output 05/18/21 05/19/21 05/19/21 21:59 05:59 13:59 Intake Total 250 240 Output Total 775 Balance 250 -535 Weight 89.358 kg Intake: IV 250 Zithromax 500 mg In Dextrose 5% 250 in Water 250 ml @ 250 mls/hr IV DAILY@1100 [facility] Rx#:[id number] Oral 240 Output: Urine Catheter Amount 775 Other: Urine Appearance Cloudy Uretheral (Mauricio) Clear Cloudy Cloudy Urine Color Bright Yellow Uretheral (Mauricio) Bright Yellow Dark Yellow Bright Yellow Urine Odor Strong Uretheral (Mauricio) Normal General appearance: cooperative and no acute distress Head Head exam: Present atraumatic and normocephalic Eye Eye exam: Present EOMI and PERRL ENT ENT exam: Present mucous membranes moist, normal exam and normal external ear exam Neck Neck exam: Present normal inspection; Absent lymphadenopathy, tenderness and thyromegaly Respiratory Respiratory exam: Absent accessory muscle use, respiratory distress and wheezes Cardiovascular Cardiovascular exam: Present normal rate and rhythm; Absent JVD GI/Abdominal GI/Abdominal exam: Present normal bowel sounds and soft; Absent organomegaly and tenderness Extremities Exam Extremities exam: Present full ROM, normal capillary refill and normal inspection; Absent tenderness Neurological Exam Neurological exam: Present alert and CN II-XII intact; Absent motor sensory deficit and oriented X3 Additional comments: oriented X2 to person and place only Psychiatric Psychiatric exam: Present normal affect and normal mood; Absent anxious and depressed Skin Skin exam: Present dry and intact OBJ DATA Labs CBC & Chem 7: 05/19/21 06:09 05/19/21 06:07 Labs: Abnormal Lab Results 05/19/21 05/19/21 05/19/21 06:10 06:09 06:07 WBC 4.0 L RBC 2.38 L Hgb 7.3 L Hct 23.5 L MPV 10.7 H Lymph # (Auto) 1.07 L Potassium BUN 47 H Creatinine 2.2 H Glucose 106 H Hemoglobin A1c Troponin T 0.66 H* NT-Pro-B Natriuret Pep Procalcitonin 05/19/21 05/18/21 05/18/21 00:20 18:23 13:45 WBC RBC Hgb Hct MPV Lymph # (Auto) Potassium BUN Creatinine Glucose Hemoglobin A1c Troponin T 0.41 H* 0.06 H* NT-Pro-B Natriuret Pep Procalcitonin 0.10 H 05/18/21 05/18/21 05/18/21 12:58 10:57 10:57 WBC RBC Hgb Hct MPV Lymph # (Auto) Potassium BUN Creatinine Glucose Hemoglobin A1c 6.6 H Troponin T 0.04 H* 0.03 H NT-Pro-B Natriuret Pep Procalcitonin 05/18/21 05/18/21 10:57 10:57 WBC 3.7 L RBC 2.71 L Hgb 8.6 L Hct 26.4 L MPV Lymph # (Auto) 0.94 L Potassium 5.4 H BUN 40 H Creatinine 2.0 H Glucose 218 H Hemoglobin A1c Troponin T NT-Pro-B Natriuret Pep 7126.0 H Procalcitonin Meds: Medications Acetaminophen (Acetaminophen 325 Mg Tablet) 650 mg PO Q6HP PRN; Protocol PRN Reason: Per Pain Protocol/Fever > 101 Albuterol/Ipratropium (Ipratropium/Albuterol 3 Ml Ampul.Neb) 3 ml NEB Q4HP PRN PRN Reason: Shortness Of Breath Calcium Polycarbophil (Calcium Polycarbophil 1 Tablet) 1 tab PO DAILY [facility] Last Admin: 05/19/21 08:36 Dose: 1 tab Documented by: Ceftriaxone Sodium (Ceftriaxone 1 Gm Vial) 1 gm IV DAILY [facility] Last Admin: 05/19/21 08:33 Dose: 1 gm Documented by: Dextrose (Dextrose 50% 50 Ml Vial) 0 ml IV UD PRN PRN Reason: Hypoglycemia Diagnostic Test (Pha) (Accu-Chek 1 Each Strip) 1 each FS ACHS [facility] Last Admin: 05/19/21 08:34 Dose: 1 each Documented by: Docusate Sodium (Docusate Sodium 100 Mg Capsule) 100 mg PO BID [facility] Last Admin: 05/19/21 08:35 Dose: 100 mg Documented by: Ferrous Gluconate (Ferrous Gluconate 324 Mg Tablet) 324 mg PO [facility] Last Admin: 05/19/21 08:36 Dose: 324 mg Documented by: Furosemide (Furosemide 20 Mg/2 Ml Vial) 20 mg IV BIDD [facility] Last Admin: 05/19/21 08:33 Dose: 20 mg Documented by: Glucose (Dextrose 31 Gm Oral.Susp) 15 gm PO PRN PRN PRN Reason: Hypoglycemia Guaifenesin (Guaifenesin/Dextromethorphan Oral Wanda) 10 ml PO Q4HP PRN PRN Reason: Cough Heparin Sodium (Porcine) (Heparin 5,000 Unit/Ml Vial) 5,000 unit SQ Q12 [facility] Last Admin: 05/19/21 08:34 Dose: 5,000 unit Documented by: Azithromycin 500 mg/ Dextrose 250 mls @ 250 mls/hr IV DAILY@1100 [facility]; Protocol Stop: 05/20/21 11:59 Last Infusion: 05/18/21 16:01 Dose: Infused Documented by: Sodium Chloride (Sodium Chloride 0.9%) 250 mls @ 20 mls/hr IV .[id number] [facility] Stop: 05/19/21 23:14 Insulin Human Lispro (Insulin Lispro 1 Unit/0.01 Ml Unit) 0 unit SQ [facility]; Protocol Last Admin: 05/19/21 08:34 Dose: Not Given Documented by: Isosorbide Mononitrate (Isosorbide Mononitrate 30 Mg Tab.Xl.24h) 30 mg PO DAILY [facility] Last Admin: 05/19/21 08:36 Dose: 30 mg Documented by: Melatonin (Melatonin 3 Mg Tablet) 3 mg PO [facility] Last Admin: 05/18/21 21:02 Dose: 3 mg Documented by: Nystatin (Nystatin Powder Bottle 15gm) 1 dose TOPICAL QID [facility] Last Admin: 05/19/21 08:37 Dose: 1 dose Documented by: Ondansetron HCl (Ondansetron 4 Mg/2 Ml Vial) 4 mg IV Q6HP PRN PRN Reason: Nausea And Vomiting Pioglitazone HCl (Pioglitazone 15 Mg Tablet) 30 mg PO DAILY [facility] Last Admin: 05/19/21 08:35 Dose: 30 mg Documented by: Senna (Sennosides 1 Tablet) 2 tab PO [facility] Last Admin: 05/18/21 21:02 Dose: Not Given Documented by: Simvastatin (Simvastatin 40 Mg Tablet) 40 mg PO [facility] Last Admin: 05/18/21 22:30 Dose: Not Given Documented by: Sodium Chloride (0.9 % Sodium Chloride 10 Ml Syringe) 10 ml IV Q8 [facility] Last Admin: 05/19/21 06:48 Dose: Not Given Documented by: Trazodone HCl (Trazodone Hcl 50 Mg Tablet) 50 mg PO HS [facility] Last Admin: 05/18/21 21:02 Dose: 50 mg Documented by: Vitamin D (Vitamin D3 1,000 Unit Tablet) 1,000 unit PO DAILY [facility] Last Admin: 05/19/21 08:35 Dose: 1,000 unit Documented by: A/P Assessment and plan (1) CHF exacerbation: Status: Acute (2) Elevated troponin: Status: Acute (3) Anemia, normocytic normochromic: Status: Acute (4) Hypertension: Status: Acute (5) Type 2 diabetes mellitus with hyperlipidemia: Status: Acute (6) Chronic kidney disease, stage 4 (severe): Status: Acute (7) Hyperkalemia: Status: Acute (8) Community acquired pneumonia: Status: Acute (9) Obesity (BMI 30.0-34.9): Status: Acute Narrative A/P Narrative: Assessment and plan: 1. Acute on chronic respiratory failure secondary to CHF exacerbation as well as bibasilar community-acquired pneumonia: Inpatient MedSurg with telemetry Strict intake and output Daily weight 2 L/days fluid restrictions 2D echocardiogram Lactic acid Procalcitonin Blood culture CBC with auto differential in the morning to trend WBC Lasix 20 mg IV twice daily Rocephin Zithromax Beta-drew contraindicated in the context of acute CHF exacerbation Hold ANABELL inhibitor/ARB given her acute hypokalemia The decision is whether to start spironolactone or not depending on the echocardiogram result Supplemental oxygen as needed titrate to achieve SPO2 above or equal to 92% DuoNeb nebulizer every 4 as needed wheezing Robitussin-DM as needed cough #2 hyper kalemia: Hold ANABELL inhibitor or ARB Status post albuterol, IV Lasix, and calcium IV given in the ED No EKG changes associated with hyperkalemia suggest peak T waves Repeat BMP in the morning to trend serum potassium level #3 chronic renal disease stage IV chronic sign avoid nephrotoxic agent Saline lock with Lasix as part of treatment for CHF exacerbation BMP the morning to trend kidney function #4 essential hypertension: Currently borderline hypotensive Hold ANABELL inhibitor or ARB given the soft blood pressure as well as acute hyperkalemia #5 history of mixed dyslipidemia: Continue statin therapy 6. Type 2 diabetes mellitus, Hemoglobin A1c Pioglitazone Correctional scale insulin therapy ACH S Accu-Chek [facility] Hyperkalemia protocol Diabetic diet #7 obesity: Constipation lifestyle modification including regular exercise and healthy diet in order to lose weight #8 normocytic normochromic anemia: Likely associated with chronic kidney disease stage IV Transfuse 2 unit pRBC now, repeat cbc at 1800 to trend transfusion response Continue iron oral supplement 9. Type 2 AK demand ischemia: Serum troponin 0.03 0.04 0.06 0.41 0.66. ECG no signs of acute ischemia. Denies chest pain, palpitation, or SOB. Denies anxiety. Spoke with telegraph inspector from [facility] Dr. Garza, said it was likely type 2 AK demand ischemia. Would recommend serial troponin-i without heparinization or catheterization. pRBC transfusion 2 unit pRBC to reduce cardiac workload, see #8 Prophylaxis: Continue oral PPI from home regiment DVT prophylaxis: Heparin CODE STATUS: Full code Prognosis: Guarded Disposition: Patient MedSurg Time Spent With Patient Time: Total time spent is greater than 50% in coordination of care (as documented) at patient's floor/unit and/or counseling patient: QUALITY VTE Deep Vein Thrombosis/Pulmonary Embolism Present on Admission: No
[2021-05-19] MEDS: AZITHROMYCIN 500 MG in DEXTROSE 5% IN WATER 250 ML IV SCH (11:06)
--- NOTE | 2021-05-19 12:53 | Internal Med Progress Note ---
SUBJECTIVE Subjective Patient information: Note initiated : 05/20/21 at 12:47 pm Service Date, if different from initiated Date: [] Patient: Xi Smith 81 y/o F admitted on 05/18/21 for shortness of breath. Chief Complaint: [] Interval history: History of present illness: Ms. Smith is a 81 year old F history of type 2 diabetes mellitus, essential hypertension, mixed dyslipidemia, CHF, chronic renal disease stage IV, presenting with acute on chronic shortness of breath. The history is severely limited by clinical situations and the fact that there is no family available. Patient was sent to our ED for evaluations due to acute on chronic onset shortness of breath. Vital signs within normal limits upon ED presentations including oxygen saturation in the mid to high 90s on room air. Labs significant for mild leukopenia with WBC 3.7. Electrolytes significant for hypokalemia with serum potassium level of 5.4. Serum creatinine level 2.0 with baseline is around 1.8. Glucose level 218. BNP level 7100. Serum troponin level 0.03. Covid Mimi screening negative. Chest x-ray showing mild bibasilar infiltrate as well as mild bilateral pleural effusions. Patient is coming of mild shortness of breath. She denies any chest pain. She denies any palpitation. She denies any cough or sputum productions. She denies any fever chills or diaphoresis. She denies any general body weakness. She is coming of confusions. 05/19: Afebrile overnight. Remains on room air. Serum troponin 0.03 0.04 0.06 0.41 0.66. ECG no signs of acute ischemia. Denies chest pain, palpitation, or SOB. Denies anxiety. Spoke with golf instructor from [facility] Dr. Garza, said it was likely type 2 [place] demand ischemia. Would recommend serial troponin-i without heparinization or catheterization. Hemoglobin 8.6-->7.3 this morning. 05/20: Hemoglobin up to 9.3 after 2 units of PRBC, troponin down trending. Holding pioglitazone for CHF. Goals of care with the patient's son and POA-no endoscopic workup, focus more on comfort care, trend hemoglobin and transfuse as needed. Code status changed to DNR. Discontinued Ceftriaxone as pneumonia unlikely. Will consider CT abdomen/pelvis if hemoglobin trends down again. Head: Atraumatic, normal inspection. Eyes: normal appearance, no scleral icterus. Neck: full ROM Respiratory: no respiratory distress. Cardiovascular: normal rate and rhythm, S1, S2. GI/Abdominal: soft, nontender, no guarding. Extremities: full range of motion, nontender. Neurological: CN II-XII intact, intact motor, intact sensation. Psychiatric: impaired cognition, normal mood. Skin: warm, normal color Constitutional Vitals: Vital Signs Temp Pulse Resp BP Pulse Ox 97.2 F 64 24 H 100/61 93 05/19/21 10:00 05/19/21 10:00 05/19/21 10:00 05/19/21 10:00 05/19/21 10:00 Period Temp Pulse Resp BP Sys/Mitchell Pulse Ox Last 24 Hr 96.4 F-98.2 F 64-93 14-27 80-113/45-70 93-97 Intake and Output 05/18/21 05/19/21 05/19/21 21:59 05:59 13:59 Intake Total 250 240 Output Total 775 Balance 250 -535 Weight 89.358 kg Intake & Output: Intake & Output 05/18/21 05/19/21 05/19/21 21:59 05:59 13:59 Intake Total 250 240 Output Total 775 Balance 250 -535 Weight 89.358 kg Intake: IV 250 Zithromax 500 mg In Dextrose 5% 250 in Water 250 ml @ 250 mls/hr IV DAILY@1100 [facility] Rx#:[id number] Oral 240 Output: Urine Catheter Amount 775 Other: Urine Appearance Cloudy Uretheral (Dimas) Clear Cloudy Cloudy Urine Color Bright Yellow Uretheral (Dimas) Bright Yellow Dark Yellow Bright Yellow Urine Odor Strong Uretheral (Dimas) Normal OBJ DATA Labs CBC & Chem 7: 05/20/21 08:40 05/20/21 00:36 Labs: Abnormal Lab Results 05/19/21 05/19/21 05/19/21 06:10 06:09 06:07 WBC 4.0 L RBC 2.38 L Hgb 7.3 L Hct 23.5 L MPV 10.7 H Lymph # (Auto) 1.07 L Potassium BUN 47 H Creatinine 2.2 H Glucose 106 H Hemoglobin A1c Troponin T 0.66 H* NT-Pro-B Natriuret Pep Procalcitonin 05/19/21 05/18/21 05/18/21 00:20 18:23 13:45 WBC RBC Hgb Hct MPV Lymph # (Auto) Potassium BUN Creatinine Glucose Hemoglobin A1c Troponin T 0.41 H* 0.06 H* NT-Pro-B Natriuret Pep Procalcitonin 0.10 H 05/18/21 05/18/21 05/18/21 12:58 10:57 10:57 WBC RBC Hgb Hct MPV Lymph # (Auto) Potassium BUN Creatinine Glucose Hemoglobin A1c 6.6 H Troponin T 0.04 H* 0.03 H NT-Pro-B Natriuret Pep Procalcitonin 05/18/21 05/18/21 10:57 10:57 WBC 3.7 L RBC 2.71 L Hgb 8.6 L Hct 26.4 L MPV Lymph # (Auto) 0.94 L Potassium 5.4 H BUN 40 H Creatinine 2.0 H Glucose 218 H Hemoglobin A1c Troponin T NT-Pro-B Natriuret Pep 7126.0 H Procalcitonin Meds: Medications Acetaminophen (Acetaminophen 325 Mg Tablet) 650 mg PO Q6HP PRN; Protocol PRN Reason: Per Pain Protocol/Fever > 101 Albuterol/Ipratropium (Ipratropium/Albuterol 3 Ml Ampul.Neb) 3 ml NEB Q4HP PRN PRN Reason: Shortness Of Breath Calcium Polycarbophil (Calcium Polycarbophil 1 Tablet) 1 tab PO DAILY [facility] Last Admin: 05/19/21 08:36 Dose: 1 tab Documented by: Ceftriaxone Sodium (Ceftriaxone 1 Gm Vial) 1 gm IV DAILY [facility] Last Admin: 05/19/21 08:33 Dose: 1 gm Documented by: Dextrose (Dextrose 50% 50 Ml Vial) 0 ml IV UD PRN PRN Reason: Hypoglycemia Diagnostic Test (Pha) (Accu-Chek 1 Each Strip) 1 each FS ACHS [facility] Last Admin: 05/19/21 11:06 Dose: 1 each Documented by: Docusate Sodium (Docusate Sodium 100 Mg Capsule) 100 mg PO BID [facility] Last Admin: 05/19/21 08:35 Dose: 100 mg Documented by: Ferrous Gluconate (Ferrous Gluconate 324 Mg Tablet) 324 mg PO [facility] Last Admin: 05/19/21 08:36 Dose: 324 mg Documented by: Furosemide (Furosemide 20 Mg/2 Ml Vial) 20 mg IV BIDD [facility] Last Admin: 05/19/21 08:33 Dose: 20 mg Documented by: Glucose (Dextrose 31 Gm Oral.Susp) 15 gm PO PRN PRN PRN Reason: Hypoglycemia Guaifenesin (Guaifenesin/Dextromethorphan Oral Wanda) 10 ml PO Q4HP PRN PRN Reason: Cough Heparin Sodium (Porcine) (Heparin 5,000 Unit/Ml Vial) 5,000 unit SQ Q12 [facility] Last Admin: 05/19/21 08:34 Dose: 5,000 unit Documented by: Azithromycin 500 mg/ Dextrose 250 mls @ 250 mls/hr IV DAILY@1100 [facility]; Protocol Stop: 05/20/21 11:59 Last Admin: 05/19/21 11:06 Dose: 250 mls/hr Documented by: Sodium Chloride (Sodium Chloride 0.9%) 250 mls @ 20 mls/hr IV .[id number] [facility] Stop: 05/19/21 23:14 Insulin Human Lispro (Insulin Lispro 1 Unit/0.01 Ml Unit) 0 unit SQ ACHS [facility]; Protocol Last Admin: 05/19/21 11:07 Dose: Not Given Documented by: Isosorbide Mononitrate (Isosorbide Mononitrate 30 Mg Tab.Xl.24h) 30 mg PO DAILY [facility] Last Admin: 05/19/21 08:36 Dose: 30 mg Documented by: Melatonin (Melatonin 3 Mg Tablet) 3 mg PO [facility] Last Admin: 05/18/21 21:02 Dose: 3 mg Documented by: Nystatin (Nystatin Powder Bottle 15gm) 1 dose TOPICAL QID [facility] Last Admin: 05/19/21 08:37 Dose: 1 dose Documented by: Ondansetron HCl (Ondansetron 4 Mg/2 Ml Vial) 4 mg IV Q6HP PRN PRN Reason: Nausea And Vomiting Pioglitazone HCl (Pioglitazone 15 Mg Tablet) 30 mg PO DAILY [facility] Last Admin: 05/19/21 08:35 Dose: 30 mg Documented by: Senna (Sennosides 1 Tablet) 2 tab PO [facility] Last Admin: 05/18/21 21:02 Dose: Not Given Documented by: Simvastatin (Simvastatin 40 Mg Tablet) 40 mg PO [facility] Last Admin: 05/18/21 22:30 Dose: Not Given Documented by: Sodium Chloride (0.9 % Sodium Chloride 10 Ml Syringe) 10 ml IV Q8 [facility] Last Admin: 05/19/21 06:48 Dose: Not Given Documented by: Trazodone HCl (Trazodone Hcl 50 Mg Tablet) 50 mg PO HS [facility] Last Admin: 05/18/21 21:02 Dose: 50 mg Documented by: Vitamin D (Vitamin D3 1,000 Unit Tablet) 1,000 unit PO DAILY [facility] Last Admin: 05/19/21 08:35 Dose: 1,000 unit Documented by: A/P Narrative A/P Narrative: Assessment: 81 year old female with multiple comorbidities including dementia admitted for dyspnea occurring in the setting of acute on chronic anemia, positive troponin, and evidence of acute CHF exacerbation. #Acute on chronic anemia of uncertain cause #Congestive heart failure -likely systolic heart failure at baseline #Elevated troponin -likely type II [place] #Acute on chronic kidney disease stage IV #Type 2 diabetes mellitus #Hypertension #Dementia #Obesity Plan -Trend hemoglobin, transfuse as needed for goal hemoglobin > 8 due to elevated troponin. -Consider CT abdomen/pelvis without contrast to evaluate for retroperitoneal hematoma. -Continue Lasix IV, monitor diuresis parameters, transition back to Torsemide before discharge. -Follow renal function, avoid nephrotoxic meds. -Hold Pioglitazone due to congestive heart failure. -Discontinue Ceftriaxone. -Essential home meds. -Follow ECHO results. -Delirium bundle. -Sodium restriction. -Discontinue dimas when able. -DVT ppx: SCD for unexplained acute drop in hemoglobin -Code status: full -Disposition: TBD, avoid thiazolidinediones (Pioglitazone) in patients with heart failure. Time Spent With Patient Time: Total time spent is greater than 50% in coordination of care (as documented) at patient's floor/unit and/or counseling patient: QUALITY VTE Deep Vein Thrombosis/Pulmonary Embolism Present on Admission: No
[2021-05-20] MEDS: SENNOSIDES 1 TABLET PO SCH ×2 (00:41→21:27)
[2021-05-20] MEDS: MELATONIN 3 MG TABLET PO SCH ×2 (00:41→21:28)
[2021-05-20] MEDS: ARIPIPRAZOLE 5 MG TABLET PO SCH ×2 (00:41→21:27)
[2021-05-20] MEDS: traZODone HCL 50 MG TABLET PO SCH ×2 (00:42→21:27)
[2021-05-20] MEDS: SIMVASTATIN 40 MG TABLET PO SCH ×2 (00:42→21:28)
[2021-05-20] MEDS: DOCUSATE SODIUM 100 MG CAPSULE PO SCH ×3 (00:42→21:27)
[2021-05-20] MEDS: 0.9 % SODIUM CHLORIDE 10 ML SYRINGE IV SCH ×4 (00:43→21:28)
[2021-05-20] MEDS: NYSTATIN POWDER BOTTLE 15GM TOPICAL SCH ×3 (01:22→12:14)
[2021-05-20 01:24] LABS: Basophils # (Auto) 0.03 K/mcL (0.00-0.30); Basophils % (Auto) 0.8 % (0.0-2.0); Eosinophils # (Auto) 0.16 K/mcL (0.00-0.70); Eosinophils % (Auto) 4.1 % (0.0-7.0); Hematocrit 28.9 % (34.1-44.9); Lymphocytes # (Auto) 1.15 K/mcL (1.50-4.80); Lymphocytes % (Auto) 29.8 % (15.5-49.0); Mean Cell Volume 94.4 fL (80.0-100.0); Mean Corpuscular HGB Conc 31.1 g/dL (31.0-36.0); Mean Platelet Volume 10.5 fL (7.4-10.4); Monocytes # (Auto) 0.44 K/mcL (0.10-0.90); Monocytes % (Auto) 11.4 % (1.0-12.0); Neutrophils % (Auto) 53.9 % (38.0-78.0); Platelet Count 156 K/mcL (140-440); RBC 3.06 M/mcL (3.59-5.38); Red Cell Distribution Width 15.8 % (11.5-14.5); WBC 3.9 K/mcL (4.5-11.0)
[2021-05-20 01:46] LABS: ALT/SGPT 14 U/L (<40); AST/SGOT 24 U/L (<32); Albumin 3.5 gm/dL (3.2-5.2); Albumin/Globulin Ratio 1.5 (1.0-2.3); Alkaline Phosphatase 44 U/L (39-117); Bilirubin,Direct 0.2 mg/dL (<0.3); Bilirubin,Total 0.9 mg/dL (0.1-1.0); Blood Urea Nitrogen 34 mg/dL (8-23); Calcium 9.4 mg/dL (8.6-10.4); Carbon Dioxide 25 mmol/L (22-30); Chloride 102 mmol/L (96-108); Globulin 2.4 gm/dL (2.2-3.7); Glomerular Filtration Rate 21; Glucose 113 mg/dL (70-105); Lactate Dehydrogenase 197 U/L (135-225); Phosphorous 3.3 mg/dL (2.5-4.5); Triglycerides 90 mg/dL (<150); Uric Acid 7.5 mg/dL (2.5-8.0)
[2021-05-20] MEDS: INSULIN LISPRO 1 UNIT/0.01 ML UNIT SQ SCH ×5 (04:17→21:27)
[2021-05-20] MEDS: cefTRIAXone 1 GM VIAL IV SCH (09:21)
[2021-05-20] MEDS: FUROSEMIDE 20 MG/2 ML VIAL IV SCH ×2 (09:21→16:19)
[2021-05-20] MEDS: FERROUS GLUCONATE 324 MG TABLET PO SCH (09:41)
[2021-05-20] MEDS: CALCIUM POLYCARBOPHIL 1 TABLET PO SCH (09:41)
[2021-05-20] MEDS: VITAMIN D3 1,000 UNIT TABLET PO SCH (09:41)
[2021-05-20] MEDS: ISOSORBIDE MONONITRATE 30 MG TAB.XL.24H PO SCH (10:28)
[2021-05-20] MEDS: AZITHROMYCIN 500 MG in DEXTROSE 5% IN WATER 250 ML IV SCH (12:12)
[2021-05-21] MEDS: NYSTATIN POWDER BOTTLE 15GM TOPICAL SCH ×3 (01:44→11:21)
[2021-05-21] MEDS: FUROSEMIDE 20 MG/2 ML VIAL IV SCH ×2 (04:59→13:46)
[2021-05-21 07:39] LABS: ALT/SGPT 11 U/L (<40); AST/SGOT 19 U/L (<32); Albumin 3.3 gm/dL (3.2-5.2); Albumin/Globulin Ratio 1.2 (1.0-2.3); Alkaline Phosphatase 45 U/L (39-117); Bilirubin,Direct 0.2 mg/dL (<0.3); Bilirubin,Total 0.8 mg/dL (0.1-1.0); Blood Urea Nitrogen 36 mg/dL (8-23); Calcium 9.5 mg/dL (8.6-10.4); Carbon Dioxide 26 mmol/L (22-30); Chloride 98 mmol/L (96-108); Globulin 2.7 gm/dL (2.2-3.7); Glomerular Filtration Rate 24; Glucose 129 mg/dL (70-105); Lactate Dehydrogenase 196 U/L (135-225); Phosphorous 2.9 mg/dL (2.5-4.5); Triglycerides 103 mg/dL (<150); Uric Acid 7.6 mg/dL (2.5-8.0)
[2021-05-21] MEDS: 0.9 % SODIUM CHLORIDE 10 ML SYRINGE IV SCH (07:47)
[2021-05-21] MEDS ORDERED: POLYETHYLENE GLYCOL 3350 17 GM PACKET PO SCH (09:00)
[2021-05-21] MEDS ORDERED: TORSEMIDE 10 MG TABLET PO SCH (09:00)
[2021-05-21] MEDS: CALCIUM POLYCARBOPHIL 1 TABLET PO SCH (10:23)
[2021-05-21] MEDS: VITAMIN D3 1,000 UNIT TABLET PO SCH (10:23)
[2021-05-21] MEDS: FERROUS GLUCONATE 324 MG TABLET PO SCH (10:24)
[2021-05-21] MEDS: DOCUSATE SODIUM 100 MG CAPSULE PO SCH (10:24)
[2021-05-21] MEDS: ISOSORBIDE MONONITRATE 30 MG TAB.XL.24H PO SCH (10:24)
[2021-05-21] MEDS: INSULIN LISPRO 1 UNIT/0.01 ML UNIT SQ SCH ×2 (10:24→12:06)
--- NOTE | 2021-05-21 10:46 | Internal Med Progress Note ---
SUBJECTIVE Subjective Patient information: Note initiated : 05/21/21 at 10:40 am Service Date, if different from initiated Date: [] Patient: Xi Smith 81 y/o F admitted on 05/18/21 for shortness of breath. Chief Complaint: [] Interval history: History of present illness: Ms. Smith is a 81 year old F history of type 2 diabetes mellitus, essential hypertension, mixed dyslipidemia, CHF, chronic renal disease stage IV, presenting with acute on chronic shortness of breath. The history is severely limited by clinical situations and the fact that there is no family available. Patient was sent to our ED for evaluations due to acute on chronic onset shortness of breath. Vital signs within normal limits upon ED presentations including oxygen saturation in the mid to high 90s on room air. Labs significant for mild leukopenia with WBC 3.7. Electrolytes significant for hypokalemia with serum potassium level of 5.4. Serum creatinine level 2.0 with baseline is around 1.8. Glucose level 218. BNP level 7100. Serum troponin level 0.03. Covid Mimi screening negative. Chest x-ray showing mild bibasilar infiltrate as well as mild bilateral pleural effusions. Patient is coming of mild shortness of breath. She denies any chest pain. She denies any palpitation. She denies any cough or sputum productions. She denies any fever chills or diaphoresis. She denies any general body weakness. She is coming of confusions. 05/19: Afebrile overnight. Remains on room air. Serum troponin 0.03 0.04 0.06 0.41 0.66. ECG no signs of acute ischemia. Denies chest pain, palpitation, or SOB. Denies anxiety. Spoke with radiation control specialist from [facility] Dr. Garza, said it was likely type 2 [place] demand ischemia. Would recommend serial troponin-i without heparinization or catheterization. Hemoglobin 8.6-->7.3 this morning. 05/20: Hemoglobin up to 9.3 after 2 units of PRBC, troponin down trending. Holding pioglitazone for CHF. Goals of care with the patient's son and POA-no endoscopic workup, focus more on comfort care, trend hemoglobin and transfuse as needed. Code status changed to DNR. Discontinued Ceftriaxone as pneumonia unlikely. Will consider CT abdomen/pelvis if hemoglobin trends down again. 05/21: Hemoglobin trend improving, discontinued lasix and started torsemide. Discontinue dimas catheter. TTE results available and show an estimated calculated LVEF of 53%, visually estimated to be 45-50%. Head: Atraumatic, normal inspection. Eyes: normal appearance, no scleral icterus. Neck: full ROM Respiratory: no respiratory distress. Cardiovascular: normal rate and rhythm, S1, S2. GI/Abdominal: soft, nontender, no guarding. Extremities: full range of motion, nontender. Neurological: CN II-XII intact, intact motor, intact sensation. Psychiatric: impaired cognition, normal mood. Skin: warm, normal color Constitutional Vitals: Vital Signs Temp Pulse Resp BP Pulse Ox 97 F 79 20 115/58 95 05/21/21 04:00 05/21/21 04:00 05/21/21 04:00 05/21/21 04:00 05/21/21 04:00 Period Temp Pulse Resp BP Sys/Mitchell Pulse Ox Last 24 Hr 97 F-97.9 F 53-79 15-24 86-119/47-61 92-96 Intake and Output 05/20/21 05/21/21 05/21/21 21:59 05:59 13:59 Intake Total 340 Output Total 1225 950 Balance -1225 -610 Weight 87.175 kg Intake & Output: Intake & Output 05/20/21 05/21/21 05/21/21 21:59 05:59 13:59 Intake Total 340 Output Total 1225 950 Balance -1225 -610 Weight 87.175 kg Intake: Oral 340 Output: Urine Catheter Amount 1225 950 Other: Urine Appearance Clear Clear Uretheral (Dimas) Clear Urine Color Bright Yellow Bright Yellow Uretheral (Dimas) Bright Yellow OBJ DATA Labs CBC & Chem 7: 05/20/21 15:37 05/21/21 05:47 Labs: Abnormal Lab Results 05/21/21 05/20/21 05/20/21 05:47 15:37 08:40 WBC RBC Hgb 10.1 L Hct RDW MPV Lymph # (Auto) Potassium BUN 36 H Creatinine 1.9 H Glucose 129 H Hemoglobin A1c Troponin T 0.62 H* NT-Pro-B Natriuret Pep Procalcitonin 05/20/21 05/20/21 05/20/21 08:40 00:36 00:28 WBC RBC Hgb 9.3 L Hct RDW MPV Lymph # (Auto) Potassium BUN 34 H Creatinine 2.1 H Glucose 113 H Hemoglobin A1c Troponin T 0.80 H* NT-Pro-B Natriuret Pep Procalcitonin 05/19/21 05/19/21 05/19/21 06:10 06:09 06:07 WBC 4.0 L RBC 2.38 L Hgb 7.3 L Hct 23.5 L RDW MPV 10.7 H Lymph # (Auto) 1.07 L Potassium BUN 47 H Creatinine 2.2 H Glucose 106 H Hemoglobin A1c Troponin T 0.66 H* NT-Pro-B Natriuret Pep Procalcitonin 05/19/21 05/19/21 05/18/21 00:35 00:20 18:23 WBC 3.9 L RBC 3.06 L Hgb 9.0 L Hct 28.9 L RDW 15.8 H MPV 10.5 H Lymph # (Auto) 1.15 L Potassium BUN Creatinine Glucose Hemoglobin A1c Troponin T 0.41 H* 0.06 H* NT-Pro-B Natriuret Pep Procalcitonin 05/18/21 05/18/21 05/18/21 13:45 12:58 10:57 WBC RBC Hgb Hct RDW MPV Lymph # (Auto) Potassium BUN Creatinine Glucose Hemoglobin A1c 6.6 H Troponin T 0.04 H* NT-Pro-B Natriuret Pep Procalcitonin 0.10 H 05/18/21 05/18/21 05/18/21 10:57 10:57 10:57 WBC 3.7 L RBC 2.71 L Hgb 8.6 L Hct 26.4 L RDW MPV Lymph # (Auto) 0.94 L Potassium 5.4 H BUN 40 H Creatinine 2.0 H Glucose 218 H Hemoglobin A1c Troponin T 0.03 H NT-Pro-B Natriuret Pep 7126.0 H Procalcitonin Meds: Medications Acetaminophen (Acetaminophen 325 Mg Tablet) 650 mg PO Q6HP PRN; Protocol PRN Reason: Per Pain Protocol/Fever > 101 Albuterol/Ipratropium (Ipratropium/Albuterol 3 Ml Ampul.Neb) 3 ml NEB Q4HP PRN PRN Reason: Shortness Of Breath Calcium Polycarbophil (Calcium Polycarbophil 1 Tablet) 1 tab PO DAILY [facility] Last Admin: 05/21/21 10:23 Dose: 1 tab Documented by: Dextrose (Dextrose 50% 50 Ml Vial) 0 ml IV UD PRN PRN Reason: Hypoglycemia Diagnostic Test (Pha) (Accu-Chek 1 Each Strip) 1 each FS [facility] Last Admin: 05/21/21 07:47 Dose: 1 each Documented by: Docusate Sodium (Docusate Sodium 100 Mg Capsule) 100 mg PO BID [facility] Last Admin: 05/21/21 10:24 Dose: 100 mg Documented by: Ferrous Gluconate (Ferrous Gluconate 324 Mg Tablet) [facility] Admin: 05/21/21 10:24 Dose: 324 mg Documented by: Glucose (Dextrose 31 Gm Oral.Susp) 15 gm PO PRN PRN PRN Reason: Hypoglycemia Guaifenesin (Guaifenesin/Dextromethorphan Oral Wanda) 10 ml PO Q4HP PRN PRN Reason: Cough Insulin Human Lispro (Insulin Lispro 1 Unit/0.01 Ml Unit) 0 unit SQ [facility]; Protocol Last Admin: 05/21/21 10:24 Dose: 1 unit Documented by: Isosorbide Mononitrate (Isosorbide Mononitrate 30 Mg Tab.Xl.24h) 30 mg PO DAILY [facility] Last Admin: 05/21/21 10:24 Dose: 30 mg Documented by: Melatonin (Melatonin 3 Mg Tablet) 3 mg PO [facility] Last Admin: 05/20/21 21:28 Dose: 3 mg Documented by: Nystatin (Nystatin Powder Bottle 15gm) 1 dose TOPICAL QID [facility] Last Admin: 05/21/21 05:00 Dose: Not Given Documented by: Ondansetron HCl (Ondansetron 4 Mg/2 Ml Vial) 4 mg IV Q6HP PRN PRN Reason: Nausea And Vomiting Polyethylene Glycol (Polyethylene Glycol 3350 17 Gm Packet) 17 gm PO DAILY [facility] Senna (Sennosides 1 Tablet) 2 tab PO [facility] Last Admin: 05/20/21 21:27 Dose: 2 tab Documented by: Simvastatin (Simvastatin 40 Mg Tablet) 40 mg PO [facility] Last Admin: 05/20/21 21:28 Dose: 40 mg Documented by: Sodium Chloride (0.9 % Sodium Chloride 10 Ml Syringe) 10 ml IV Q8 [facility] Last Admin: 05/21/21 07:47 Dose: 10 ml Documented by: Torsemide (Torsemide 10 Mg Tablet) 20 mg PO DAILY [facility] Last Admin: 05/21/21 10:23 Dose: 20 mg Documented by: Trazodone HCl (Trazodone Hcl 50 Mg Tablet) 50 mg PO HS [facility] Last Admin: 05/20/21 21:27 Dose: 50 mg Documented by: Vitamin D (Vitamin D3 1,000 Unit Tablet) 1,000 unit PO DAILY [facility] Last Admin: 05/21/21 10:23 Dose: 1,000 unit Documented by: A/P Narrative A/P Narrative: Assessment: 81 year old female with multiple comorbidities including dementia admitted for dyspnea occurring in the setting of acute on chronic anemia, positive troponin, and evidence of acute CHF exacerbation. #Acute on chronic anemia of uncertain cause #Congestive heart failure -LVEF calculated at 53% #Elevated troponin -likely type II [place] #Acute on chronic kidney disease stage IV #Type 2 diabetes mellitus #Hypertension #Dementia #Obesity Plan -Transition to Torsemide once daily, discontinue Lasix IV. -Follow renal function, avoid nephrotoxic meds. -Hold Pioglitazone due to congestive heart failure. -Follow ECHO results. -Delirium bundle. -Sodium restriction. -Remove dimas catheter. -DVT ppx: SCD for unexplained acute drop in hemoglobin -Code status: full -Disposition: TBD, avoid thiazolidinediones (Pioglitazone) in patients with heart failure. Time Spent With Patient Time: Total time spent is greater than 50% in coordination of care (as documented) at patient's floor/unit and/or counseling patient: QUALITY VTE Deep Vein Thrombosis/Pulmonary Embolism Present on Admission: No
--- NOTE | 2021-05-21 15:44 | Discharge Summary ---
Discharge Provider Provider Patient information: Note initiated : 05/21/21 at 3:40 pm Service Date, if different from initiated Date: [] Patient: Xi Smith 81 y/o F admitted on 05/18/21 for shortness of breath. Chief Complaint: [] Date of admission: 05/18/21 14:10 Discharge date: 05/21/21 Primary care physician: Salina Mack Consults: 05/18/21 Consult to Physician [CONS] Stat Comment: Consulting Provider: Lázaro Kilgore Reason For Exam: Physician to Consult Discharge Meds Discharge Medications Home Medications blood sugar diagnostic #10 each 07/21/20 [Rx Confirmed 05/18/21 Last Taken Unknown] cholecalciferol (vitamin D3) 25 mcg (1,000 unit) tablet 25 mcg PO QDAY #90 tab 07/21/20 [Rx Confirmed 05/18/21 Last Taken Unknown] lancets 30 gauge #100 each 07/21/20 [Rx Confirmed 05/18/21 Last Taken Unknown] calcium polycarbophil 625 mg tablet 625 mg PO QDAY tab 09/23/20 [History Confirmed 05/18/21 Last Taken Unknown] ferrous gluconate 324 mg (38 mg iron) tablet 324 mg PO QDAY 09/23/20 [History Confirmed 05/18/21 Last Taken Unknown] melatonin 3 mg capsule 3 mg PO HS #30 cap 09/23/20 [Rx Confirmed 05/18/21 Last Taken Unknown] pioglitazone 30 mg tablet 30 mg PO QDAY #90 tab 09/28/20 [Rx Confirmed 05/18/21 Last Taken Unknown] trazodone 50 mg tablet 50 mg PO QHS #30 tab 09/28/20 [Rx Confirmed 05/18/21 Last Taken Unknown] valsartan 160 mg tablet 160 mg PO BID #180 tab 09/28/20 [Rx Confirmed 05/18/21 Last Taken Unknown] aripiprazole 10 mg tablet 10 mg PO QHS #30 ea 09/29/20 [Rx Confirmed 05/18/21 Last Taken Unknown] nystatin 100,000 unit/gram topical powder 1 applic TOPICAL QID #30 g 04/27/21 [Rx Confirmed 05/18/21 Last Taken Unknown] rosuvastatin 40 mg tablet See Rx Instructions .ROUTE .COMPLEX #30 each 05/03/21 [Rx Confirmed 05/18/21 Last Taken Unknown] isosorbide mononitrate 30 mg PO DAILY 05/18/21 [History Confirmed 05/18/21 Last Taken Unknown] COURSE Hospital Course Hospital course: History of present illness: Ms. Smith is a 81 year old F history of type 2 diabetes mellitus, essential hypertension, mixed dyslipidemia, CHF, chronic renal disease stage IV, presenting with acute on chronic shortness of breath. The history is severely limited by clinical situations and the fact that there is no family available. Patient was sent to our ED for evaluations due to acute on chronic onset shortness of breath. Vital signs within normal limits upon ED presentations including oxygen saturation in the mid to high 90s on room air. Labs significant for mild leukopenia with WBC 3.7. Electrolytes significant for hypokalemia with serum potassium level of 5.4. Serum creatinine level 2.0 with baseline is around 1.8. Glucose level 218. BNP level 7100. Serum troponin level 0.03. Covid Mimi screening negative. Chest x-ray showing mild bibasilar infiltrate as well as mild bilateral pleural effusions. Patient is coming of mild shortness of breath. She denies any chest pain. She denies a ny palpitation. She denies any cough or sputum productions. She denies any fever chills or diaphoresis. She denies any general body weakness. She is coming of confusions. 05/19: Afebrile overnight. Remains on room air. Serum troponin 0.03 0.04 0.06 0.41 0.66. ECG no signs of acute ischemia. Denies chest pain, palpitation, or SOB. Denies anxiety. Spoke with household appliance assembler from [facility] Dr. Garza, said it was likely type 2 MO demand ischemia. Would recommend serial troponin-i without heparinization or catheterization. Hemoglobin 8.6-->7.3 this morning. 05/20: Hemoglobin up to 9.3 after 2 units of PRBC, troponin down trending. Holding pioglitazone for CHF. Goals of care with the patient's son and POA-no endoscopic workup, focus more on comfort care, trend hemoglobin and transfuse as needed. Code status changed to DNR. Discontinued Ceftriaxone as pneumonia unlikely. Will consider CT abdomen/pelvis if hemoglobin trends down again. 05/21: Hemoglobin trend improving, discontinued lasix and started torsemide. Discontinue dimas catheter. TTE results available and show an estimated calculated LVEF of 53%. Discharged to swing bed status. Head: Atraumatic, normal inspection. Eyes: normal appearance, no scleral icterus. Neck: full ROM Respiratory: no respiratory distress. Cardiovascular: normal rate and rhythm, S1, S2. GI/Abdominal: soft, nontender, no guarding. Extremities: full range of motion, nontender. Neurological: CN II-XII intact, intact motor, intact sensation. Psychiatric: impaired cognition, normal mood. Skin: warm, normal color Discharge diagnosis: Acute on chronic anemia Secondary discharge diagnosis: Acute on chronic diastolic heart failure Type II MO Time Spent with Patient Time attestation: Total time spent providing and/or coordinating discharge services: EXAM Constitutional Vitals: Temp Pulse Resp BP Pulse Ox 97.7 F 82 20 122/59 92 05/21/21 12:00 05/21/21 12:00 05/21/21 12:00 05/21/21 12:00 05/21/21 12:00 Discharge Data Data Completed and Pending Labs on day of discharge: Labs from last 24 hours 05/21/21 05/20/21 05:47 15:37 Hgb 10.1 L Sodium 135 Potassium 3.9 Chloride 98 Carbon Dioxide 26 Anion Gap 11.0 BUN 36 H Creatinine 1.9 H GFR Calculation 24 Glucose 129 H Uric Acid 7.6 Calcium 9.5 Phosphorus 2.9 Magnesium 1.9 Total Bilirubin 0.8 Direct Bilirubin 0.2 GGT 7 AST 19 ALT 11 Alkaline Phosphatase 45 Lactate Dehydrogenase 196 Total Protein 6.0 Albumin 3.3 Globulin 2.7 Albumin/Globulin Ratio 1.2 Triglycerides 103 Preliminary micro results at discharge 05/18/21 13:53 Blood Culture - Preliminary Blood 05/18/21 13:45 Blood Culture - Preliminary Blood Discharge Plan Patient/Caregiver Discharge Instructions Prescriptions: No Action cholecalciferol (vitamin D3) 25 mcg (1,000 unit) tablet 25 mcg PO QDAY Qty: 90 RF: 3 (DME) OneTouch Verio test strips Strip See Rx Instructions .ROUTE .MEDSUPPLY Qty: 10 RF: 0 (DME) lancets [OneTouch Delica Lancets] 30 gauge misc See Rx Instructions .ROUTE .MEDSUPPLY Qty: 100 RF: 0 ferrous gluconate 324 mg (38 mg iron) tablet 324 mg PO QDAY RF: 0 calcium polycarbophil [FiberCon] 625 mg tablet 625 mg PO QDAY RF: 0 melatonin 3 mg capsule 3 mg PO HS Qty: 30 RF: 0 valsartan 160 mg tablet 160 mg PO BID Qty: 180 RF: 3 trazodone 50 mg tablet 50 mg PO QHS Qty: 30 RF: 11 pioglitazone 30 mg tablet 30 mg PO QDAY Qty: 90 RF: 3 aripiprazole 10 mg tablet 10 mg PO QHS Qty: 30 RF: 10 nystatin 100,000 unit/gram powder 1 applic topical QID Qty: 30 RF: 10 rosuvastatin 40 mg tablet See Rx Instructions .ROUTE .COMPLEX Qty: 30 RF: 10 isosorbide mononitrate 30 mg tablet extended release 24 hr 30 mg PO DAILY RF: 0 Follow Up Plan Follow up with: Salina Mack ARNP [Primary Care Provider] - Patient Disposition: Xfer As Swing Bed ([facility]) QUALITY VTE Deep Vein Thrombosis/Pulmonary Embolism Present on Admission: No
== END 2021-05-21 15:35 | disposition swing bed (61) | DRG 811 ==
LOC: ED 10:26 → MEDSUR 14:10 → ICU 05-19 02:32 → MEDSUR 05-20 15:46
PROVIDERS: ADMIT Internal Medicine; ATTEND Internal Medicine

== ENCOUNTER 2021-08-12 17:28 | Inpatient (IN) ==
[2021-08-12] MEDS ORDERED: LACTATED RINGERS 1,000 ML IV ONE (18:41)
[2021-08-12] MEDS ORDERED: NALOXONE HCL 0.4 MG/ML VIAL IV ONE (18:46)
--- NOTE | 2021-08-12 18:51 | Emergency Department Note ---
HPI <Srinivasa Flores PA-C - Last Filed: 08/12/21 20:21> General Chief complaint: Recheck/Abnormal Lab/Rx Stated complaint: Abnormal labs Time Seen by Provider: 08/12/21 17:58 Source: EMS Mode of arrival: EMS History of Present Illness HPI Narrative: Narrative: 75-year-old female with history of COVID-19 diagnosed on 04 August, anemia, congestive heart failure, type 2 diabetes, generalized weakness, vascular dem entia, morbid obesity, hyperlipidemia, depressive disorder, anxiety, Alzheimer's, insomnia, hypertensive heart and chronic kidney disease with failure, GERD, CKD stage IV and constipation presents to the ER with complaints of COVID-19, abnormal labs, renal failure, congestive heart failure. She was dropped off by EMS with a limited history. The patient is unresponsive and can provide no history at this time. Related Data Home Medications Medication Instructions Recorded Confirmed calcium polycarbophil 625 mg 625 mg PO QDAY tab 09/23/20 05/21/21 tablet (FiberCon) ferrous gluconate 324 mg (38 mg 324 mg PO QDAY 09/23/20 05/21/21 iron) tablet Previous Rx's Medication Instructions Recorded blood sugar diagnostic (OneTouch #10 each 07/21/20 Verio test strips) cholecalciferol (vitamin D3) 25 25 mcg PO QDAY #90 tab 07/21/20 mcg (1,000 unit) tablet lancets 30 gauge (OneTouch Delica #100 each 07/21/20 Lancets) melatonin 3 mg capsule 3 mg PO HS #30 cap 09/23/20 aripiprazole 10 mg tablet 10 mg PO QHS #30 ea 09/29/20 nystatin 100,000 unit/gram topical 1 applic TOPICAL QID #30 g 04/27/21 powder rosuvastatin 40 mg tablet See Rx Instructions .ROUTE 05/03/21 .COMPLEX #30 each empagliflozin 10 mg tablet 10 mg PO QAM #30 tab 05/26/21 (Jardiance) trazodone 50 mg tablet 50 mg PO HS PRN #30 tab 05/26/21 Allergies Allergy/AdvReac Type Severity Reaction Status Date / Time quetiapine AdvReac Intermediate extreme Verified 08/12/21 17:29 fatique <Hung Grimm DO - Last Filed: 08/13/21 01:23> History of Present Illness HPI Narrative: Narrative: 75-year-old female with history of COVID-19 diagnosed on 04 August, anemia, congestive heart failure, type 2 diabetes, generalized weakness, vascular dementia, morbid obesity, hyperlipidemia, depressive disorder, anxiety, Alzheimer's, insomnia, hypertensive heart and chronic kidney disease with failure, GERD, CKD stage IV and constipation presents to the ER with complaints of COVID-19, abnormal labs, renal failure, congestive heart failure. She was dropped off by EMS with a limited history. The patient is poorly responsive and can provide no history at this time, responds to pain, and verbal calling her name Review of Systems <Srinivasa Flores PA-C - Last Filed: 08/12/21 20:21> ROS ROS Narrative: Narrative: Patient unresponsive and cannot provide <Hung Grimm DO - Last Filed: 08/13/21 01:23> ROS ROS Narrative: Full review of systems unobtainable given mental status PFSH <Srinivasa Flores PA-C - Last Filed: 08/12/21 20:21> Narrative Patient History Narrative: Narrative: Medical/Surgical/Family History All Active Problems (Updated 08/12/21 @ 22:10 by Hung Grimm DO) COVID (Acute) Sepsis (Acute) Hypoxia (Acute) Demand ischemia (Acute) Obesity (BMI 30.0-34.9) (Acute) Community acquired pneumonia (Acute) Hyperkalemia (Acute) Chronic kidney disease, stage 4 (severe) (Acute) CHF exacerbation (Acute) Congestive heart failure (Acute) Acute hyperkalemia (Acute) Elevated troponin (Acute) Acute renal insufficiency (Acute) Behavior disturbance (Acute) Severe dementia (Acute) Hematochezia (Acute) CHF (congestive heart failure) (Acute) Seizure (Acute) Anemia, normocytic normochromic (Acute) Chronic kidney disease (Acute) SunDown syndrome (Acute) Acute coronary syndrome (Acute) Abnormal CT scan, head (Acute) Injury due to fall (Acute) Liver mass (Acute) Atherosclerosis of aorta (Acute) Abnormal finding on urinalysis (Acute) Acute renal failure (Acute) Hypertension (Acute) Type 2 diabetes mellitus with hyperlipidemia (Acute) Alzheimer's dementia (Acute) GERD (gastroesophageal reflux disease) (Acute) Hx of transient ischemic attack (TIA) (Acute) Major depressive disorder, recurrent episode (Acute) Vitamin D deficiency (Acute) Hx of colonoscopy (Acute) 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 30-59 (Acute) Osteoporosis (Acute) Anxiety (Acute) Chronic heartburn (Acute) Vascular dementia without behavioral disturbance (Chronic) Medical History (Updated 08/12/21 @ 22:10 by Hung Grimm DO) Abnormal CT scan, head Abnormal finding on urinalysis Acute coronary syndrome Acute renal failure Alzheimer's dementia Anxiety Atherosclerosis of aorta Chronic heartburn GERD (gastroesophageal reflux disease) Hx of transient ischemic attack (TIA) Hypertension Injury due to fall Liver mass Major depressive disorder, recurrent episode Osteoporosis 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 30-59 Type 2 diabetes mellitus with hyperlipidemia Vascular dementia without behavioral disturbance Vitamin D deficiency Surgical History History of cholecystectomy History of hip surgery Hx of colonoscopy Social History Smoking Status: Never smoker Alcohol Intake Frequency: does not drink Substance Use: does not use Exam <Srinivasa Flores PA-C - Last Filed: 08/12/21 20:21> Narrative Narrative: Narrative: Gen: Patient is responsive to painful stimuli only Eyes: Pinpoint pupils HENMT: Normocephalic Atraumatic head, external nose and ears. Dry MM., CVS: Weak brachial pulse and equal bilat. RESP: Tachypnea. Wheezing throughout GI: Nontender/Nondistended (NTND), No focal tenderness MSK: no deformiting or edema Skin: Warm, Dry . No rashes or lesions . Cap refill less than 2. Neuro: Patient unable to respond to anything but painful stimuli patient is nonparticipative she has pinpoint pupils Psych: Patient is only responsive to painful stimuli <Hung Grimm DO - Last Filed: 08/13/21 01:23> Narrative Narrative: Narrative: Gen: Frail, overall quite ill-appearing Eyes: Symmetric HENMT: Normocephalic Atraumatic head, external nose and ears. Dry MM., CVS: Weak brachial pulse and equal bilat. RESP: Tachypnea. Wheezing GI: Nontender/Nondistended (NTND), No focal tenderness MSK: no deformiting or edema Skin: Warm, Dry . No rashes or lesions . Cap refill less than 2. Neuro: Grossly nonfocal but poorly responsive, no obvious asymmetry, generalized weakness throughout, does respond to pain as well as calling her name. Psych: Not agitated Course <Srinivasa Flores PA-C - Last Filed: 08/12/21 20:21> Vital Signs Vital signs: Vital Signs Temperature 39.0 C H 08/12/21 17:29 Pulse Rate 129 H 08/12/21 17:29 Respiratory Rate 28 H 08/12/21 17:29 Blood Pressure 97/73 08/12/21 17:29 Pulse Oximetry (%) 91 08/12/21 17:29 Temperature 37.2 C 08/12/21 20:34 Pulse Rate 105 H 08/13/21 00:01 Respiratory Rate 9 L 08/13/21 00:01 Blood Pressure 82/55 08/13/21 00:01 Pulse Oximetry (%) 98 08/13/21 00:01 <Hung Grimm DO - Last Filed: 08/13/21 01:23> Vital Signs Vital signs: Vital Signs Temperature 39.0 C H 08/12/21 17:29 Pulse Rate 129 H 08/12/21 17:29 Respiratory Rate 28 H 08/12/21 17:29 Blood Pressure 97/73 08/12/21 17:29 Pulse Oximetry (%) 91 08/12/21 17:29 Temperature 37.2 C 08/12/21 20:34 Pulse Rate 105 H 08/13/21 00:01 Respiratory Rate 9 L 08/13/21 00:01 Blood Pressure 82/55 08/13/21 00:01 Pulse Oximetry (%) 98 08/13/21 00:01 MDM <LORI Tapia Last Filed: 08/12/21 20:21> [place] Narrative Medical decision making narrative: Narrative: Patient is had COVID-19 for the last 7 days. She has a history of renal failure, congestive heart failure, diabetes. She will have a broad-based eval uation given she is unresponsive right now for sepsis, congestive heart failure, brain bleed, UTI, renal failure, and DKA. She will be given Narcan at this time 0.4 mg. Patient was somewhat responsive to Narcan and opened her eyes and they were more dilated she is been looking around but she still nonverbal. She is febrile at 102 she was given ofirmev 1 g IV. CBC: Patient is very hemoconcentrated no elevated white count CMP: Pseudohyponatremia from hemoconcentration, anion gap, decreased bicarb, normal potassium, elevation in creatinine above baseline chronic kidney disease, EKG: Sinus tachycardia rate of [address] or T wave abnormality to suggest acute ischemia, possible demand ischemia with lateral depression Chest x-ray: No significant fluid overload CT head without contrast: No acute intracranial process UA: Blood Cultures: Venous blood gas: Compensated metabolic acidosis Lactate: 4.0, sepsis considered at approximately 2000 when her lactic acid was returned. She was started on vancomycin and cefepime and given a 500 mL bolus of normal saline she is hemoconcentrated and has dry mucous membranes she is tachycardic she is likely dry but she does have a history of renal failure and she does have an elevated BNP we will be cautious with overloading her with fluid given her heart failure history as well. BNP: 27712 significant elevation from earlier in the day Troponin: BHB: It is the end of my shift, the entire work-up and evaluation was performed in conjunction with Dr. Grimm a thorough discussion regarding patient disposition, current lab work and disposition was had with Dr. Wang. Patient was given a fluid bolus that was cautious in nature due to her history of heart failure and kidney disease. She was started on vancomycin and cefepime. She was given over mount for fever. She did respond somewhat to Narcan. Patient is still critical at this time. Troponin, BNP, BHB, blood cultures, UA and CMP are still pending. Dr. Grimm will assume care for the patient at this time. Lab Data Result diagrams: 08/12/21 19:15 08/12/21 19:15 Labs: Lab Results 08/12/21 08/12/21 08/12/21 Range/Units 19:15 19:15 19:15 WBC 9.0 (4.5-11.0) K/mcL RBC 5.65 H (3.59-5.38) M/mcL Hgb 16.9 H (11.2-15.7) g/dL Hct 52.5 H (34.1-44.9) % POC Hct (36-48) % MCV 92.9 (80.0-100.0) fL MCH 29.9 (26.0-34.0) pg MCHC 32.2 (31.0-36.0) g/dL RDW 14.6 H (11.5-14.5) % Plt Count 182 (140-440) K/mcL MPV 12.7 H (7.4-10.4) fL Neut % (Auto) 85.0 H (38.0-78.0) % Lymph % (Auto) 10.9 L (15.5-49.0) % Bledsoe % (Auto) 3.9 (1.0-12.0) % Eos % (Auto) 0 (0.0-7.0) % Baso % (Auto) 0.2 (0.0-2.0) % Lymph # (Auto) 0.98 L (1.50-4.80) K/mcL Bledsoe # (Auto) 0.35 (0.10-0.90) K/mcL Eos # (Auto) 0 (0.00-0.70) K/mcL Baso # (Auto) 0.02 (0.00-0.30) K/mcL Seg Neutrophils % (38-78) % Band Neutrophils % (0-10) % Lymphocytes % (15-49) % Monocytes % (Manual) (1-12) % Absolute Neutrophils 7.61 (1.80-8.00) K/mcL Platelet Estimate (Normal) RBC Morphology (Normal) Anisocytosis (None Seen) Macrocytosis (None Seen) D-Dimer (0.27-0.5) ug/mL ABG Methemoglobin (0.4-1.5) % VBG pH (7.32-7.42) U VBG pCO2 (41.0-51.0) mmHg VBG pO2 (25.0-40.0) mmHg VBG HCO3 (24.0-28.0) mmol/L VBG Total CO2 (25.0-29.0) mmol/L VBG O2 Saturation (40.0-70.0) % VBG Base Excess (-2-2) VBG Lactic Acid (0.5-2.0) mmol/L Carboxyhemoglobin (0.0-1.5) % THgb Total Hemoglobin (12.0-15.0) gm/Dl POC Sodium (133-145) mEq/L Sodium 151 H (133-145) mmol/L POC Potassium (3.3-5.1) mEql/L Potassium 3.7 (3.3-5.1) mmol/L POC Chloride (96-108) mEq/L Chloride 108 (96-108) mmol/L Carbon Dioxide 18 L (22-30) mmol/L POC Total CO2 (22-30) mmol/L Anion Gap 25.0 H (8.0-16.0) POC BUN (6-20) mg/dL BUN 74 H (8-23) mg/dL Creatinine 2.8 H (0.6-1.1) mg/dL POC Creatinine (0.6-1.2) mg/dL GFR Calculation 15 Glucose 245 H (70-105) mg/dL POC Glucose (70-105) mg/dL Calcium 9.9 (8.6-10.4) mg/dL POC WB Ioniz Calcium (1.16-1.32) mmEq/L Total Bilirubin 1.1 H (0.1-1.0) mg/dL AST 57 H (<32) U/L ALT 20 (<40) U/L Alkaline Phosphatase 58 (39-117) U/L Troponin T 0.22 H* (<0.03) ng/mL NT-Pro-B Natriuret Pep (<450.0) pg/mL Total Protein 6.7 (5.9-8.4) gm/dL Albumin 3.5 (3.2-5.2) gm/dL Globulin 3.2 (2.2-3.7) gm/dL Albumin/Globulin Ratio 1.1 (1.0-2.3) Beta-Hydroxybutyrate 3.01 H (<0.27) mmol/L Procalcitonin (<0.10) ng/mL Urine Color Urine Appearance (Clear) Urine pH (5.0-9.0) Ur Specific Dwight (1.000-1.035) Urine Protein (Negative) mg/dL Urine Glucose (UA) (Negative) mg/dL Urine Ketones (Negative) mg/dL Urine Occult Blood (Negative) ashley/mcL Urine Nitrate (Negative) Urine Bilirubin (Negative) mg/dL Urine Urobilinogen mg/dL Ur Leukocyte Esterase (Negative) /uL Urine RBC (0-3) /hpf Urine WBC (0-4) /hpf Ur Squamous Epith Cells (0-4) /hpf Urine Bacteria (0) /hpf Hyaline Casts (0-2) /lph Granular Casts (0-0) /lph Urine Mucus (None) /hpf Ur Culture Indicated? 08/12/21 08/12/21 08/12/21 Range/Units 19:15 19:15 19:15 WBC (4.5-11.0) K/mcL RBC (3.59-5.38) M/mcL Hgb (11.2-15.7) g/dL Hct (34.1-44.9) % POC Hct (36-48) % MCV (80.0-100.0) fL MCH (26.0-34.0) pg MCHC (31.0-36.0) g/dL RDW (11.5-14.5) % Plt Count (140-440) K/mcL MPV (7.4-10.4) fL Neut % (Auto) (38.0-78.0) % Lymph % (Auto) (15.5-49.0) % Bledsoe % (Auto) (1.0-12.0) % Eos % (Auto) (0.0-7.0) % Baso % (Auto) (0.0-2.0) % Lymph # (Auto) (1.50-4.80) K/mcL Bledsoe # (Auto) (0.10-0.90) K/mcL Eos # (Auto) (0.00-0.70) K/mcL Baso # (Auto) (0.00-0.30) K/mcL Seg Neutrophils % (38-78) % Band Neutrophils % (0-10) % Lymphocytes % (15-49) % Monocytes % (Manual) (1-12) % Absolute Neutrophils (1.80-8.00) K/mcL Platelet Estimate (Normal) RBC Morphology (Normal) Anisocytosis (None Seen) Macrocytosis (None Seen) D-Dimer (0.27-0.5) ug/mL ABG Methemoglobin 0.6 (0.4-1.5) % VBG pH 7.38 (7.32-7.42) U VBG pCO2 36.7 L (41.0-51.0) mmHg VBG pO2 43.8 H (25.0-40.0) mmHg VBG HCO3 21.3 L (24.0-28.0) mmol/L VBG Total CO2 22.4 L (25.0-29.0) mmol/L VBG O2 Saturation 70.3 H (40.0-70.0) % VBG Base Excess -3 L (-2-2) VBG Lactic Acid 4.0 H* (0.5-2.0) mmol/L Carboxyhemoglobin 4.0 H (0.0-1.5) % THgb Total Hemoglobin 16.5 H (12.0-15.0) gm/Dl POC Sodium (133-145) mEq/L Sodium (133-145) mmol/L POC Potassium (3.3-5.1) mEql/L Potassium (3.3-5.1) mmol/L POC Chloride (96-108) mEq/L Chloride (96-108) mmol/L Carbon Dioxide (22-30) mmol/L POC Total CO2 (22-30) mmol/L Anion Gap (8.0-16.0) POC BUN (6-20) mg/dL BUN (8-23) mg/dL Creatinine (0.6-1.1) mg/dL POC Creatinine (0.6-1.2) mg/dL GFR Calculation Glucose (70-105) mg/dL POC Glucose (70-105) mg/dL Calcium (8.6-10.4) mg/dL POC WB Ioniz Calcium (1.16-1.32) mmEq/L Total Bilirubin (0.1-1.0) mg/dL AST (<32) U/L ALT (<40) U/L Alkaline Phosphatase (39-117) U/L Troponin T (<0.03) ng/mL NT-Pro-B Natriuret Pep 68626.0 H (<450.0) pg/mL Total Protein (5.9-8.4) gm/dL Albumin (3.2-5.2) gm/dL Globulin (2.2-3.7) gm/dL Albumin/Globulin Ratio (1.0-2.3) Beta-Hydroxybutyrate (<0.27) mmol/L Procalcitonin (<0.10) ng/mL Urine Color Urine Appearance (Clear) Urine pH (5.0-9.0) Ur Specific Dwight (1.000-1.035) Urine Protein (Negative) mg/dL Urine Glucose (UA) (Negative) mg/dL Urine Ketones (Negative) mg/dL Urine Occult Blood (Negative) ashley/mcL Urine Nitrate (Negative) Urine Bilirubin (Negative) mg/dL Urine Urobilinogen mg/dL Ur Leukocyte Esterase (Negative) /uL Urine RBC (0-3) /hpf Urine WBC (0-4) /hpf Ur Squamous Epith Cells (0-4) /hpf Urine Bacteria (0) /hpf Hyaline Casts (0-2) /lph Granular Casts (0-0) /lph Urine Mucus (None) /hpf Ur Culture Indicated? 08/12/21 08/12/21 08/12/21 Range/Units 19:15 19:15 19:15 WBC (4.5-11.0) K/mcL RBC (3.59-5.38) M/mcL Hgb (11.2-15.7) g/dL Hct (34.1-44.9) % POC Hct (36-48) % MCV (80.0-100.0) fL MCH (26.0-34.0) pg MCHC (31.0-36.0) g/dL RDW (11.5-14.5) % Plt Count (140-440) K/mcL MPV (7.4-10.4) fL Neut % (Auto) (38.0-78.0) % Lymph % (Auto) (15.5-49.0) % Bledsoe % (Auto) (1.0-12.0) % Eos % (Auto) (0.0-7.0) % Baso % (Auto) (0.0-2.0) % Lymph # (Auto) (1.50-4.80) K/mcL Bledsoe # (Auto) (0.10-0.90) K/mcL Eos # (Auto) (0.00-0.70) K/mcL Baso # (Auto) (0.00-0.30) K/mcL Seg Neutrophils % 67 (38-78) % Band Neutrophils % 15 H (0-10) % Lymphocytes % 11 L (15-49) % Monocytes % (Manual) 7 (1-12) % Absolute Neutrophils (1.80-8.00) K/mcL Platelet Estimate Clumped A (Normal) RBC Morphology Abnormal A (Normal) Anisocytosis 1+ A (None Seen) Macrocytosis 1+ A (None Seen) D-Dimer > 20.0 H (0.27-0.5) ug/mL ABG Methemoglobin (0.4-1.5) % VBG pH (7.32-7.42) U VBG pCO2 (41.0-51.0) mmHg VBG pO2 (25.0-40.0) mmHg VBG HCO3 (24.0-28.0) mmol/L VBG Total CO2 (25.0-29.0) mmol/L VBG O2 Saturation (40.0-70.0) % VBG Base Excess (-2-2) VBG Lactic Acid (0.5-2.0) mmol/L Carboxyhemoglobin (0.0-1.5) % THgb Total Hemoglobin (12.0-15.0) gm/Dl POC Sodium (133-145) mEq/L Sodium (133-145) mmol/L POC Potassium (3.3-5.1) mEql/L Potassium (3.3-5.1) mmol/L POC Chloride (96-108) mEq/L Chloride (96-108) mmol/L Carbon Dioxide (22-30) mmol/L POC Total CO2 (22-30) mmol/L Anion Gap (8.0-16.0) POC BUN (6-20) mg/dL BUN (8-23) mg/dL Creatinine (0.6-1.1) mg/dL POC Creatinine (0.6-1.2) mg/dL GFR Calculation Glucose (70-105) mg/dL POC Glucose (70-105) mg/dL Calcium (8.6-10.4) mg/dL POC WB Ioniz Calcium (1.16-1.32) mmEq/L Total Bilirubin (0.1-1.0) mg/dL AST (<32) U/L ALT (<40) U/L Alkaline Phosphatase (39-117) U/L Troponin T (<0.03) ng/mL NT-Pro-B Natriuret Pep (<450.0) pg/mL Total Protein (5.9-8.4) gm/dL Albumin (3.2-5.2) gm/dL Globulin (2.2-3.7) gm/dL Albumin/Globulin Ratio (1.0-2.3) Beta-Hydroxybutyrate (<0.27) mmol/L Procalcitonin 2.27 H (<0.10) ng/mL Urine Color Urine Appearance (Clear) Urine pH (5.0-9.0) Ur Specific Dwight (1.000-1.035) Urine Protein (Negative) mg/dL Urine Glucose (UA) (Negative) mg/dL Urine Ketones (Negative) mg/dL Urine Occult Blood (Negative) ashley/mcL Urine Nitrate (Negative) Urine Bilirubin (Negative) mg/dL Urine Urobilinogen mg/dL Ur Leukocyte Esterase (Negative) /uL Urine RBC (0-3) /hpf Urine WBC (0-4) /hpf Ur Squamous Epith Cells (0-4) /hpf Urine Bacteria (0) /hpf Hyaline Casts (0-2) /lph Granular Casts (0-0) /lph Urine Mucus (None) /hpf Ur Culture Indicated? 08/12/21 08/12/21 Range/Units 19:34 23:18 WBC (4.5-11.0) K/mcL RBC (3.59-5.38) M/mcL Hgb (11.2-15.7) g/dL Hct (34.1-44.9) % POC Hct 43 (36-48) % MCV (80.0-100.0) fL MCH (26.0-34.0) pg MCHC (31.0-36.0) g/dL RDW (11.5-14.5) % Plt Count (140-440) K/mcL MPV (7.4-10.4) fL Neut % (Auto) (38.0-78.0) % Lymph % (Auto) (15.5-49.0) % Bledsoe % (Auto) (1.0-12.0) % Eos % (Auto) (0.0-7.0) % Baso % (Auto) (0.0-2.0) % Lymph # (Auto) (1.50-4.80) K/mcL Bledsoe # (Auto) (0.10-0.90) K/mcL Eos # (Auto) (0.00-0.70) K/mcL Baso # (Auto) (0.00-0.30) K/mcL Seg Neutrophils % (38-78) % Band Neutrophils % (0-10) % Lymphocytes % (15-49) % Monocytes % (Manual) (1-12) % Absolute Neutrophils (1.80-8.00) K/mcL Platelet Estimate (Normal) RBC Morphology (Normal) Anisocytosis (None Seen) Macrocytosis (None Seen) D-Dimer (0.27-0.5) ug/mL ABG Methemoglobin (0.4-1.5) % VBG pH (7.32-7.42) U VBG pCO2 (41.0-51.0) mmHg VBG pO2 (25.0-40.0) mmHg VBG HCO3 (24.0-28.0) mmol/L VBG Total CO2 (25.0-29.0) mmol/L VBG O2 Saturation (40.0-70.0) % VBG Base Excess (-2-2) VBG Lactic Acid (0.5-2.0) mmol/L Carboxyhemoglobin (0.0-1.5) % THgb Total Hemoglobin (12.0-15.0) gm/Dl POC Sodium 152 H (133-145) mEq/L Sodium (133-145) mmol/L POC Potassium 3.7 (3.3-5.1) mEql/L Potassium (3.3-5.1) mmol/L POC Chloride 119 H (96-108) mEq/L Chloride (96-108) mmol/L Carbon Dioxide (22-30) mmol/L POC Total CO2 21 L (22-30) mmol/L Anion Gap (8.0-16.0) POC BUN 82 H (6-20) mg/dL BUN (8-23) mg/dL Creatinine (0.6-1.1) mg/dL POC Creatinine 3.4 H (0.6-1.2) mg/dL GFR Calculation Glucose (70-105) mg/dL POC Glucose 243 H (70-105) mg/dL Calcium (8.6-10.4) mg/dL POC WB Ioniz Calcium 1.19 (1.16-1.32) mmEq/L Total Bilirubin (0.1-1.0) mg/dL AST (<32) U/L ALT (<40) U/L Alkaline Phosphatase (39-117) U/L Troponin T (<0.03) ng/mL NT-Pro-B Natriuret Pep (<450.0) pg/mL Total Protein (5.9-8.4) gm/dL Albumin (3.2-5.2) gm/dL Globulin (2.2-3.7) gm/dL Albumin/Globulin Ratio (1.0-2.3) Beta-Hydroxybutyrate (<0.27) mmol/L Procalcitonin (<0.10) ng/mL Urine Color Yellow Urine Appearance Clear (Clear) Urine pH 5.0 (5.0-9.0) Ur Specific Dwight 1.020 (1.000-1.035) Urine Protein 100 mg/dl A (Negative) mg/dL Urine Glucose (UA) 250 mg/dl A (Negative) mg/dL Urine Ketones Trace A (Negative) mg/dL Urine Occult Blood Trace-intact A (Negative) ashley/mcL Urine Nitrate Negative (Negative) Urine Bilirubin Negative (Negative) mg/dL Urine Urobilinogen Normal mg/dL Ur Leukocyte Esterase Negative (Negative) /uL Urine RBC 0 (0-3) /hpf Urine WBC < 1 (0-4) /hpf Ur Squamous Epith Cells 1 (0-4) /hpf Urine Bacteria Few A (0) /hpf Hyaline Casts 12 H (0-2) /lph Granular Casts 7 H (0-0) /lph Urine Mucus Few A (None) /hpf Ur Culture Indicated? Yes ED POC Tests ED POC Tests: IRAJ - SARS Antigen Positive <Hung Grimm, - Last Filed: 08/13/21 01:23> [place] Narrative Medical decision making narrative: Narrative: Patient is had COVID-19 for the last 7 days. She has a history of renal failure, congestive heart failure, diabetes. She will have a broad-based evaluation given she is poorly responsive right now for sepsis, congestive heart failure, brain bleed, UTI, renal failure, and DKA. She will be given Narcan at this time 0.4 mg. Patient was somewhat responsive to Narcan and opened her eyes and they were more dilated she is been looking around but she still nonverbal. She is febrile at 102 she was given ofirmev 1 g IV. CBC: Patient is very hemoconcentrated no elevated white count CMP: hypernatremia, anion gap, decreased bicarb, normal potassium, elevation in creatinine above baseline chronic kidney disease, EKG: Sinus tachycardia rate of 130 bpm with no STEMI criteria, possible demand ischemia with lateral depression Chest x-ray: Faint lower opacities, left pleural effusion CT head without contrast: No acute intracranial process UA: Blood Cultures: Venous blood gas: Compensated metabolic acidosis Lactate: 4.0, sepsis considered at approximately 2000 when her lactic acid was returned. She was started on vancomycin and cefepime and given a 500 mL bolus of normal saline she has history of CHF,renal failure and she does have an elevated BNP we will be cautious with overloading her with fluid. BNP: 96559 significant elevation from earlier in the day Tr It is the end of my shift, the entire work-up and evaluation was performed in conjunction with Dr. Grimm a thorough discussion regarding patient disposition, current lab work and disposition was had with Dr. Wang. Patient was given a fluid bolus that was cautious in nature due to her history of heart failure and kidney disease. She was started on vancomycin and cefepime. She was given over mount for fever. Patient is still critical at this time. Troponin, BNP, BHB, blood cultures, UA and CMP are still pending. Dr. Grimm will assume care for the patient at this time. Lab Data Labs: Lab Results 08/12/21 08/12/21 08/12/21 Range/Units 19:15 19:15 19:15 WBC 9.0 (4.5-11.0) K/mcL RBC 5.65 H (3.59-5.38) M/mcL Hgb 16.9 H (11.2-15.7) g/dL Hct 52.5 H (34.1-44.9) % POC Hct (36-48) % MCV 92.9 (80.0-100.0) fL MCH 29.9 (26.0-34.0) pg MCHC 32.2 (31.0-36.0) g/dL RDW 14.6 H (11.5-14.5) % Plt Count 182 (140-440) K/mcL MPV 12.7 H (7.4-10.4) fL Neut % (Auto) 85.0 H (38.0-78.0) % Lymph % (Auto) 10.9 L (15.5-49.0) % Bledsoe % (Auto) 3.9 (1.0-12.0) % Eos % (Auto) 0 (0.0-7.0) % Baso % (Auto) 0.2 (0.0-2.0) % Lymph # (Auto) 0.98 L (1.50-4.80) K/mcL Bledsoe # (Auto) 0.35 (0.10-0.90) K/mcL Eos # (Auto) 0 (0.00-0.70) K/mcL Baso # (Auto) 0.02 (0.00-0.30) K/mcL Seg Neutrophils % (38-78) % Band Neutrophils % (0-10) % Lymphocytes % (15-49) % Monocytes % (Manual) (1-12) % Absolute Neutrophils 7.61 (1.80-8.00) K/mcL Platelet Estimate (Normal) RBC Morphology (Normal) Anisocytosis (None Seen) Macrocytosis (None Seen) D-Dimer (0.27-0.5) ug/mL ABG Methemoglobin (0.4-1.5) % VBG pH (7.32-7.42) U VBG pCO2 (41.0-51.0) mmHg VBG pO2 (25.0-40.0) mmHg VBG HCO3 (24.0-28.0) mmol/L VBG Total CO2 (25.0-29.0) mmol/L VBG O2 Saturation (40.0-70.0) % VBG Base Excess (-2-2) VBG Lactic Acid (0.5-2.0) mmol/L Carboxyhemoglobin (0.0-1.5) % THgb Total Hemoglobin (12.0-15.0) gm/Dl POC Sodium (133-145) mEq/L Sodium 151 H (133-145) mmol/L POC Potassium (3.3-5.1) mEql/L Potassium 3.7 (3.3-5.1) mmol/L POC Chloride (96-108) mEq/L Chloride 108 (96-108) mmol/L Carbon Dioxide 18 L (22-30) mmol/L POC Total CO2 (22-30) mmol/L Anion Gap 25.0 H (8.0-16.0) POC BUN (6-20) mg/dL BUN 74 H (8-23) mg/dL Creatinine 2.8 H (0.6-1.1) mg/dL POC Creatinine (0.6-1.2) mg/dL GFR Calculation 15 Glucose 245 H (70-105) mg/dL POC Glucose (70-105) mg/dL Calcium 9.9 (8.6-10.4) mg/dL POC WB [facility] Calcium (1.16-1.32) mmEq/L Total Bilirubin 1.1 H (0.1-1.0) mg/dL AST 57 H (<32) U/L ALT 20 (<40) U/L Alkaline Phosphatase 58 (39-117) U/L Troponin T 0.22 H* (<0.03) ng/mL NT-Pro-B Natriuret Pep (<450.0) pg/mL Total Protein 6.7 (5.9-8.4) gm/dL Albumin 3.5 (3.2-5.2) gm/dL Globulin 3.2 (2.2-3.7) gm/dL Albumin/Globulin Ratio 1.1 (1.0-2.3) Beta-Hydroxybutyrate 3.01 H (<0.27) mmol/L Procalcitonin (<0.10) ng/mL Urine Color Urine Appearance (Clear) Urine pH (5.0-9.0) Ur Specific Dwight (1.000-1.035) Urine Protein (Negative) mg/dL Urine Glucose (UA) (Negative) mg/dL Urine Ketones (Negative) mg/dL Urine Occult Blood (Negative) ashley/mcL Urine Nitrate (Negative) Urine Bilirubin (Negative) mg/dL Urine Urobilinogen mg/dL Ur Leukocyte Esterase (Negative) /uL Urine RBC (0-3) /hpf Urine WBC (0-4) /hpf Ur Squamous Epith Cells (0-4) /hpf Urine Bacteria (0) /hpf Hyaline Casts (0-2) /lph Granular Casts (0-0) /lph Urine Mucus (None) /hpf Ur Culture Indicated? 08/12/21 08/12/21 08/12/21 Range/Units 19:15 19:15 19:15 WBC (4.5-11.0) K/mcL RBC (3.59-5.38) M/mcL Hgb (11.2-15.7) g/dL Hct (34.1-44.9) % POC Hct (36-48) % MCV (80.0-100.0) fL MCH (26.0-34.0) pg MCHC (31.0-36.0) g/dL RDW (11.5-14.5) % Plt Count (140-440) K/mcL MPV (7.4-10.4) fL Neut % (Auto) (38.0-78.0) % Lymph % (Auto) (15.5-49.0) % Bledsoe % (Auto) (1.0-12.0) % Eos % (Auto) (0.0-7.0) % Baso % (Auto) (0.0-2.0) % Lymph # (Auto) (1.50-4.80) K/mcL Bledsoe # (Auto) (0.10-0.90) K/mcL Eos # (Auto) (0.00-0.70) K/mcL Baso # (Auto) (0.00-0.30) K/mcL Seg Neutrophils % (38-78) % Band Neutrophils % (0-10) % Lymphocytes % (15-49) % Monocytes % (Manual) (1-12) % Absolute Neutrophils (1.80-8.00) K/mcL Platelet Estimate (Normal) RBC Morphology (Normal) Anisocytosis (None Seen) Macrocytosis (None Seen) D-Dimer (0.27-0.5) ug/mL ABG Methemoglobin 0.6 (0.4-1.5) % VBG pH 7.38 (7.32-7.42) U VBG pCO2 36.7 L (41.0-51.0) mmHg VBG pO2 43.8 H (25.0-40.0) mmHg VBG HCO3 21.3 L (24.0-28.0) mmol/L VBG Total CO2 22.4 L (25.0-29.0) mmol/L VBG O2 Saturation 70.3 H (40.0-70.0) % VBG Base Excess -3 L (-2-2) VBG Lactic Acid 4.0 H* (0.5-2.0) mmol/L Carboxyhemoglobin 4.0 H (0.0-1.5) % THgb Total Hemoglobin 16.5 H (12.0-15.0) gm/Dl POC Sodium (133-145) mEq/L Sodium (133-145) mmol/L POC Potassium (3.3-5.1) mEql/L Potassium (3.3-5.1) mmol/L POC Chloride (96-108) mEq/L Chloride (96-108) mmol/L Carbon Dioxide (22-30) mmol/L POC Total CO2 (22-30) mmol/L Anion Gap (8.0-16.0) POC BUN (6-20) mg/dL BUN (8-23) mg/dL Creatinine (0.6-1.1) mg/dL POC Creatinine (0.6-1.2) mg/dL GFR Calculation Glucose (70-105) mg/dL POC Glucose (70-105) mg/dL Calcium (8.6-10.4) mg/dL POC WB [facility] Calcium (1.16-1.32) mmEq/L Total Bilirubin (0.1-1.0) mg/dL AST (<32) U/L ALT (<40) U/L Alkaline Phosphatase (39-117) U/L Troponin T (<0.03) ng/mL NT-Pro-B Natriuret Pep 86044.0 H (<450.0) pg/mL Total Protein (5.9-8.4) gm/dL Albumin (3.2-5.2) gm/dL Globulin (2.2-3.7) gm/dL Albumin/Globulin Ratio (1.0-2.3) Beta-Hydroxybutyrate (<0.27) mmol/L Procalcitonin (<0.10) ng/mL Urine Color Urine Appearance (Clear) Urine pH (5.0-9.0) Ur Specific Dwight (1.000-1.035) Urine Protein (Negative) mg/dL Urine Glucose (UA) (Negative) mg/dL Urine Ketones (Negative) mg/dL Urine Occult Blood (Negative) ashley/mcL Urine Nitrate (Negative) Urine Bilirubin (Negative) mg/dL Urine Urobilinogen mg/dL Ur Leukocyte Esterase (Negative) /uL Urine RBC (0-3) /hpf Urine WBC (0-4) /hpf Ur Squamous Epith Cells (0-4) /hpf Urine Bacteria (0) /hpf Hyaline Casts (0-2) /lph Granular Casts (0-0) /lph Urine Mucus (None) /hpf Ur Culture Indicated? 08/12/21 08/12/21 08/12/21 Range/Units 19:15 19:15 19:15 WBC (4.5-11.0) K/mcL RBC (3.59-5.38) M/mcL Hgb (11.2-15.7) g/dL Hct (34.1-44.9) % POC Hct (36-48) % MCV (80.0-100.0) fL MCH (26.0-34.0) pg MCHC (31.0-36.0) g/dL RDW (11.5-14.5) % Plt Count (140-440) K/mcL MPV (7.4-10.4) fL Neut % (Auto) (38.0-78.0) % Lymph % (Auto) (15.5-49.0) % Bledsoe % (Auto) (1.0-12.0) % Eos % (Auto) (0.0-7.0) % Baso % (Auto) (0.0-2.0) % Lymph # (Auto) (1.50-4.80) K/mcL Bledsoe # (Auto) (0.10-0.90) K/mcL Eos # (Auto) (0.00-0.70) K/mcL Baso # (Auto) (0.00-0.30) K/mcL Seg Neutrophils % 67 (38-78) % Band Neutrophils % 15 H (0-10) % Lymphocytes % 11 L (15-49) % Monocytes % (Manual) 7 (1-12) % Absolute Neutrophils (1.80-8.00) K/mcL Platelet Estimate Clumped A (Normal) RBC Morphology Abnormal A (Normal) Anisocytosis 1+ A (None Seen) Macrocytosis 1+ A (None Seen) D-Dimer > 20.0 H (0.27-0.5) ug/mL ABG Methemoglobin (0.4-1.5) % VBG pH (7.32-7.42) U VBG pCO2 (41.0-51.0) mmHg VBG pO2 (25.0-40.0) mmHg VBG HCO3 (24.0-28.0) mmol/L VBG Total CO2 (25.0-29.0) mmol/L VBG O2 Saturation (40.0-70.0) % VBG Base Excess (-2-2) VBG Lactic Acid (0.5-2.0) mmol/L Carboxyhemoglobin (0.0-1.5) % THgb Total Hemoglobin (12.0-15.0) gm/Dl POC Sodium (133-145) mEq/L Sodium (133-145) mmol/L POC Potassium (3.3-5.1) mEql/L Potassium (3.3-5.1) mmol/L POC Chloride (96-108) mEq/L Chloride (96-108) mmol/L Carbon Dioxide (22-30) mmol/L POC Total CO2 (22-30) mmol/L Anion Gap (8.0-16.0) POC BUN (6-20) mg/dL BUN (8-23) mg/dL Creatinine (0.6-1.1) mg/dL POC Creatinine (0.6-1.2) mg/dL GFR Calculation Glucose (70-105) mg/dL POC Glucose (70-105) mg/dL Calcium (8.6-10.4) mg/dL POC WB [facility] Calcium (1.16-1.32) mmEq/L Total Bilirubin (0.1-1.0) mg/dL AST (<32) U/L ALT (<40) U/L Alkaline Phosphatase (39-117) U/L Troponin T (<0.03) ng/mL NT-Pro-B Natriuret Pep (<450.0) pg/mL Total Protein (5.9-8.4) gm/dL Albumin (3.2-5.2) gm/dL Globulin (2.2-3.7) gm/dL Albumin/Globulin Ratio (1.0-2.3) Beta-Hydroxybutyrate (<0.27) mmol/L Procalcitonin 2.27 H (<0.10) ng/mL Urine Color Urine Appearance (Clear) Urine pH (5.0-9.0) Ur Specific Dwight (1.000-1.035) Urine Protein (Negative) mg/dL Urine Glucose (UA) (Negative) mg/dL Urine Ketones (Negative) mg/dL Urine Occult Blood (Negative) ashley/mcL Urine Nitrate (Negative) Urine Bilirubin (Negative) mg/dL Urine Urobilinogen mg/dL Ur Leukocyte Esterase (Negative) /uL Urine RBC (0-3) /hpf Urine WBC (0-4) /hpf Ur Squamous Epith Cells (0-4) /hpf Urine Bacteria (0) /hpf Hyaline Casts (0-2) /lph Granular Casts (0-0) /lph Urine Mucus (None) /hpf Ur Culture Indicated? 08/12/21 08/12/21 Range/Units 19:34 23:18 WBC (4.5-11.0) K/mcL RBC (3.59-5.38) M/mcL Hgb (11.2-15.7) g/dL Hct (34.1-44.9) % POC Hct 43 (36-48) % MCV (80.0-100.0) fL MCH (26.0-34.0) pg MCHC (31.0-36.0) g/dL RDW (11.5-14.5) % Plt Count (140-440) K/mcL MPV (7.4-10.4) fL Neut % (Auto) (38.0-78.0) % Lymph % (Auto) (15.5-49.0) % Bledsoe % (Auto) (1.0-12.0) % Eos % (Auto) (0.0-7.0) % Baso % (Auto) (0.0-2.0) % Lymph # (Auto) (1.50-4.80) K/mcL Bledsoe # (Auto) (0.10-0.90) K/mcL Eos # (Auto) (0.00-0.70) K/mcL Baso # (Auto) (0.00-0.30) K/mcL Seg Neutrophils % (38-78) % Band Neutrophils % (0-10) % Lymphocytes % (15-49) % Monocytes % (Manual) (1-12) % Absolute Neutrophils (1.80-8.00) K/mcL Platelet Estimate (Normal) RBC Morphology (Normal) Anisocytosis (None Seen) Macrocytosis (None Seen) D-Dimer (0.27-0.5) ug/mL ABG Methemoglobin (0.4-1.5) % VBG pH (7.32-7.42) U VBG pCO2 (41.0-51.0) mmHg VBG pO2 (25.0-40.0) mmHg VBG HCO3 (24.0-28.0) mmol/L VBG Total CO2 (25.0-29.0) mmol/L VBG O2 Saturation (40.0-70.0) % VBG Base Excess (-2-2) VBG Lactic Acid (0.5-2.0) mmol/L Carboxyhemoglobin (0.0-1.5) % THgb Total Hemoglobin (12.0-15.0) gm/Dl POC Sodium 152 H (133-145) mEq/L Sodium (133-145) mmol/L POC Potassium 3.7 (3.3-5.1) mEql/L Potassium (3.3-5.1) mmol/L POC Chloride 119 H (96-108) mEq/L Chloride (96-108) mmol/L Carbon Dioxide (22-30) mmol/L POC Total CO2 21 L (22-30) mmol/L Anion Gap (8.0-16.0) POC BUN 82 H (6-20) mg/dL BUN (8-23) mg/dL Creatinine (0.6-1.1) mg/dL POC Creatinine 3.4 H (0.6-1.2) mg/dL GFR Calculation Glucose (70-105) mg/dL POC Glucose 243 H (70-105) mg/dL Calcium (8.6-10.4) mg/dL POC WB [facility] Calcium 1.19 (1.16-1.32) mmEq/L Total Bilirubin (0.1-1.0) mg/dL AST (<32) U/L ALT (<40) U/L Alkaline Phosphatase (39-117) U/L Troponin T (<0.03) ng/mL NT-Pro-B Natriuret Pep (<450.0) pg/mL Total Protein (5.9-8.4) gm/dL Albumin (3.2-5.2) gm/dL Globulin (2.2-3.7) gm/dL Albumin/Globulin Ratio (1.0-2.3) Beta-Hydroxybutyrate (<0.27) mmol/L Procalcitonin (<0.10) ng/mL Urine Color Yellow Urine Appearance Clear (Clear) Urine pH 5.0 (5.0-9.0) Ur Specific Dwight 1.020 (1.000-1.035) Urine Protein 100 mg/dl A (Negative) mg/dL Urine Glucose (UA) 250 mg/dl A (Negative) mg/dL Urine Ketones Trace A (Negative) mg/dL Urine Occult Blood Trace-intact A (Negative) ashley/mcL Urine Nitrate Negative (Negative) Urine Bilirubin Negative (Negative) mg/dL Urine Urobilinogen Normal mg/dL Ur Leukocyte Esterase Negative (Negative) /uL Urine RBC 0 (0-3) /hpf Urine WBC < 1 (0-4) /hpf Ur Squamous Epith Cells 1 (0-4) /hpf Urine Bacteria Few A (0) /hpf Hyaline Casts 12 H (0-2) /lph Granular Casts 7 H (0-0) /lph Urine Mucus Few A (None) /hpf Ur Culture Indicated? Yes ED POC Tests ED POC Tests: [facility] - SARS Antigen Positive Discharge Plan Patient/Caregiver Discharge Instructions Pt seen by DOLL SURGEON/PA only: No Clinical Impression: COVID, Sepsis, Hypoxia Patient Disposition: Xfer As Inpt ([facility]) Condition: Critical Follow up with: Salina Mack ARNP [Primary Care Provider] - Prescriptions: No Action cholecalciferol (vitamin D3) 25 mcg (1,000 unit) tablet 25 mcg PO QDAY Qty: 90 3RF (DME) OneTouch Verio test strips Strip See Rx Instructions .ROUTE .MEDSUPPLY Qty: 10 0RF Rx Instructions: As directed (DME) lancets [OneTouch Delica Lancets] 30 gauge misc See Rx Instructions .ROUTE .MEDSUPPLY Qty: 100 0RF Rx Instructions: As directed ferrous gluconate 324 mg (38 mg iron) tablet 324 mg PO QDAY 0RF calcium polycarbophil [FiberCon] 625 mg tablet 625 mg PO QDAY 0RF melatonin 3 mg capsule 3 mg PO HS Qty: 30 0RF aripiprazole 10 mg tablet 10 mg PO QHS Qty: 30 10RF nystatin 100,000 unit/gram powder 1 applic topical QID Qty: 30 10RF rosuvastatin 40 mg tablet See Rx Instructions .ROUTE .COMPLEX Qty: 30 10RF Dose Instruction: TAKE ONE TABLET BY MOUTH EVERY DAY IN THE EVENING Rx Instructions: TAKE ONE TABLET BY MOUTH EVERY DAY IN THE EVENING trazodone 50 mg Tablet 50 mg PO HS PRN (Reason: insomnia) Qty: 30 0RF Jardiance 10 mg tablet 10 mg PO QAM Qty: 30 3RF
--- NOTE | 2021-08-12 19:13 | Cat Scan Report ---
History: Unresponsive TECHNIQUE: The brain was imaged without contrast in axial plane at 2.5 mm intervals. The radiation exposure was limited using dose reduction technology. FINDINGS: There is mild to moderate generalized cerebral atrophy, predominantly involving the frontal and temporal lobes with milder cerebellar involvement. There is no evidence of an infarct, hemorrhage or mass. Subtle areas of decreased attenuation are present in the right matter, most apparent in the frontal lobes. There is a small collection of lipid in the atrium of the left lateral ventricle which measures 7 x 8 mm in size. This is unchanged from the prior head CT done on 08/19/20. 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 Densely calcified plaques are present in the vertebral arteries at the foramen magnum and there is moderate plaque formation in the cavernous portions of both internal carotids. These have remained stable. No abnormal extra-axial fluid collection is present. Bone windows show no skull lesion. Overall there has been no change coordinator the past year. IMPRESSION: Stable age-related degenerative changes and no acute abnormalities Interpreted and Authenticated by: Javon Schuler 08/12/21
[2021-08-12] MEDS ORDERED: ACETAMINOPHEN 1,000 MG/100 ML BAG IV ONE (19:35)
[2021-08-12 19:41] LABS: ABG Methemoglobin 0.6 % (0.4-1.5); Total Hemoglobin 16.5 gm/Dl (12.0-15.0); VBG Base Excess -3 (-2-2); VBG HCO3 21.3 mmol/L (24.0-28.0); VBG Oxygen Saturation 70.3 % (40.0-70.0); VBG PCO2 36.7 mmHg (41.0-51.0); VBG PH 7.38 U (7.32-7.42); VBG PO2 43.8 mmHg (25.0-40.0); VBG Total CO2 22.4 mmol/L (25.0-29.0)
[2021-08-12 19:51] LABS: Basophils # (Auto) 0.02 K/mcL (0.00-0.30); Basophils % (Auto) 0.2 % (0.0-2.0); Eosinophils # (Auto) 0 K/mcL (0.00-0.70); Eosinophils % (Auto) 0 % (0.0-7.0); Hematocrit 52.5 % (34.1-44.9); Hemoglobin 16.9 g/dL (11.2-15.7); Lymphocytes # (Auto) 0.98 K/mcL (1.50-4.80); Lymphocytes % (Auto) 10.9 % (15.5-49.0); Mean Cell Volume 92.9 fL (80.0-100.0); Mean Corpuscular HGB Conc 32.2 g/dL (31.0-36.0); Mean Platelet Volume 12.7 fL (7.4-10.4); Monocytes # (Auto) 0.35 K/mcL (0.10-0.90); Monocytes % (Auto) 3.9 % (1.0-12.0); Platelet Count 182 K/mcL (140-440); RBC 5.65 M/mcL (3.59-5.38); Red Cell Distribution Width 14.6 % (11.5-14.5)
[2021-08-12] MEDS ORDERED: CEFEPIME 1 GM VIAL IV ONE (20:04)
[2021-08-12] MEDS ORDERED: VANCOMYCIN PER PHARMACY IV ONE (20:04)
[2021-08-12] MEDS ORDERED: 0.9 % SODIUM CHLORIDE 500 ML IV ONE (20:04)
[2021-08-12] MEDS ORDERED: VANCOMYCIN 1,000 MG in 0.9 % SODIUM CHLORIDE 250 ML IV ONE (20:07)
[2021-08-12 20:13] LABS: ALT/SGPT 20 U/L (<40); AST/SGOT 57 U/L (<32); Albumin 3.5 gm/dL (3.2-5.2); Albumin/Globulin Ratio 1.1 (1.0-2.3); Alkaline Phosphatase 58 U/L (39-117); Bilirubin,Total 1.1 mg/dL (0.1-1.0); Blood Urea Nitrogen 74 mg/dL (8-23); Calcium 9.9 mg/dL (8.6-10.4); Carbon Dioxide 18 mmol/L (22-30); Chloride 108 mmol/L (96-108); Globulin 3.2 gm/dL (2.2-3.7); Glomerular Filtration Rate 15; Glucose 245 mg/dL (70-105)
[2021-08-12 20:46] LABS: Appearance,Urine Clear (Clear); Bacteria,Urine FEW /hpf (0); Bilirubin,Urine Negative (Negative); Color,Urine Yellow; Culture Indicated,Urine Yes; Ketones,Urine Trace mg/dL (Negative); Leukocyte Esterase,Urine Negative /uL (Negative); Mucus,Urine FEW /hpf; Nitrate,Urine Negative (Negative); Urine Blood Trace-intact ery/mcL (Negative); Urine Granular Cast 7 /lph (0-0); Urine Hyaline Cast 12 /lph (0-2); Urine RBC 0 /hpf (0-3); Urine Squamous Epithelial Cell 1 /hpf (0-4); Urine WBC < 1 /hpf (0-4); Urobilinogen,Urine Normal
[2021-08-12] MEDS ORDERED: DEXAMETHASONE 10 MG/ML VIAL IV ONE (20:57)
[2021-08-12] MEDS ORDERED: 0.9 % SODIUM CHLORIDE 250 ML IV ONE ×2 (21:36→21:59)
[2021-08-12 22:02] LABS: Beta Hydroxybutyrate 3.01 mmol/L (<0.27)
--- NOTE | 2021-08-12 22:04 | Emergency Department Note ---
Course Vital Signs Vital signs: Vital Signs Temperature 39.0 C H 08/12/21 17:29 Pulse Rate 129 H 08/12/21 17:29 Respiratory Rate 28 H 08/12/21 17:29 Blood Pressure 97/73 08/12/21 17:29 Pulse Oximetry (%) 91 08/12/21 17:29 Temperature 37.3 C H 08/13/21 04:01 Pulse Rate 87 08/13/21 04:01 Respiratory Rate 36 H 08/13/21 04:01 Blood Pressure 96/56 08/13/21 04:01 Pulse Oximetry (%) 96 08/13/21 04:01 MDM MDM Narrative Medical decision making narrative: 81-year-old DNR history of Alzheimer's dementia CHF diabetes generalized decline, hypertension, CKD, known to have COVID-19 since August 04 brought to the ER for generalized worsening, more lethargic difficulty breathing. Signed out to me by GIANNA, she did present quite tachycardic mildly hypotensive, septic, likely from COVID-19 however did start her on antibiotics for bacterial coverage. Clinically she does appear possibly volume overloaded she has lower extremity edema and a history of advanced CHF as well as CKD so we very judiciously gave her IV fluids given initial 500 bolus subsequent 250 bolus and approximately 250 cc with her IV antibiotics. Chest x-ray per my interpretation shows some basilar infiltrates, small pleural effusion Twelve-lead EKG shows sinus tachycardia 131, no ST elevations, nonspecific IVCD, does appear to have some ST depression lateral precordial leads a suspect demand ischemia from sepsis, prolonged hypoxia. Patient is maintaining saturations on nasal cannula mildly tachypneic, heart rate improved now around 100 CBC appears hemoconcentrated hemoglobin 16, normal white count VBG shows a normal pH 7.38, PCO2 of 36 and adequate PO2 of 43 Lactic acid 4.0, rpt downtrending 3.7 Electrolytes show hypernatremia 151 anion gap metabolic mild acidosis with anion gap 25 bicarb of 18 BUN 74 and a creatinine of 2.8 slightly elevated from baseline. Glucose is 245 Troponin elevated 0.2 I suspect this is demand ischemia due to sepsis as well as baseline CKD it has been significantly higher than this in the past we will simp ly trend. BNP is 12,000 Urine negative for infection Reevaluation map is around 65 systolic still mildly high heart rate improved with fluids. Have spoken with the hospitalist we will also obtain D-dimer lower extremity duplex ultrasounds to help evaluate for any VTE, unable to get CT PE scan Duplex ultrasound per tech shows single DVT in the left femoral profunda otherwise negative. Discussed with hospitalist will start on therapeutic renally dosed Lovenox for DVT and concern for PE as we are unable to obtain a CT 2200: I spoke with patient's son who is power of immigration attorney, Miguel, , who reiterates and confirms patient's DNR status, understands that patient is very very sick, septic, has COVID, does state that she has had a generalized decline in the recent past and history of Alzheimer's dementia. Understanding that she is very sick, they do not want any type of aggressive treatment and really do not want her transferred to higher level of care. They would prefer t o admit her here if at all possible continue with conservative treatment as planned. Spoke again with the hospitalist who came and evaluated the patient and has accepted admission to our ICU Critical Care Time Total CriticalCare time was at least 40 minutes, excluding separately reportable procedures. There was a high probability of clinically significant/life threatening deterioration in the patient's condition which required my urgent intervention. Lab Data Result diagrams: 08/12/21 19:15 08/12/21 19:15 Labs: Lab Results 08/12/21 08/12/21 08/12/21 Range/Units 19:15 19:15 19:15 WBC 9.0 (4.5-11.0) K/mcL RBC 5.65 H (3.59-5.38) M/mcL Hgb 16.9 H (11.2-15.7) g/dL Hct 52.5 H (34.1-44.9) % POC Hct (36-48) % MCV 92.9 (80.0-100.0) fL MCH 29.9 (26.0-34.0) pg MCHC 32.2 (31.0-36.0) g/dL RDW 14.6 H (11.5-14.5) % Plt Count 182 (140-440) K/mcL MPV 12.7 H (7.4-10.4) fL Neut % (Auto) 85.0 H (38.0-78.0) % Lymph % (Auto) 10.9 L (15.5-49.0) % [place] % (Auto) 3.9 (1.0-12.0) % Eos % (Auto) 0 (0.0-7.0) % Baso % (Auto) 0.2 (0.0-2.0) % Lymph # (Auto) 0.98 L (1.50-4.80) K/mcL [place] # (Auto) 0.35 (0.10-0.90) K/mcL Eos # (Auto) 0 (0.00-0.70) K/mcL Baso # (Auto) 0.02 (0.00-0.30) K/mcL Seg Neutrophils % (38-78) % Band Neutrophils % (0-10) % Lymphocytes % (15-49) % Monocytes % (Manual) (1-12) % Absolute Neutrophils 7.61 (1.80-8.00) K/mcL Platelet Estimate (Normal) RBC Morphology (Normal) Anisocytosis (None Seen) Macrocytosis (None Seen) D-Dimer (0.27-0.5) ug/mL ABG Methemoglobin (0.4-1.5) % VBG pH (7.32-7.42) U VBG pCO2 (41.0-51.0) mmHg VBG pO2 (25.0-40.0) mmHg VBG HCO3 (24.0-28.0) mmol/L VBG Total CO2 (25.0-29.0) mmol/L VBG O2 Saturation (40.0-70.0) % VBG Base Excess (-2-2) VBG Lactic Acid (0.5-2.0) mmol/L Carboxyhemoglobin (0.0-1.5) % THgb Total Hemoglobin (12.0-15.0) gm/Dl POC Sodium (133-145) mEq/L Sodium 151 H (133-145) mmol/L POC Potassium (3.3-5.1) mEql/L Potassium 3.7 (3.3-5.1) mmol/L POC Chloride (96-108) mEq/L Chloride 108 (96-108) mmol/L Carbon Dioxide 18 L (22-30) mmol/L POC Total CO2 (22-30) mmol/L Anion Gap 25.0 H (8.0-16.0) POC BUN (6-20) mg/dL BUN 74 H (8-23) mg/dL Creatinine 2.8 H (0.6-1.1) mg/dL POC Creatinine (0.6-1.2) mg/dL GFR Calculation 15 Glucose 245 H (70-105) mg/dL POC Glucose (70-105) mg/dL Calcium 9.9 (8.6-10.4) mg/dL POC WB Ioniz Calcium (1.16-1.32) mmEq/L Total Bilirubin 1.1 H (0.1-1.0) mg/dL AST 57 H (<32) U/L ALT 20 (<40) U/L Alkaline Phosphatase 58 (39-117) U/L Troponin T 0.22 H* (<0.03) ng/mL NT-Pro-B Natriuret Pep (<450.0) pg/mL Total Protein 6.7 (5.9-8.4) gm/dL Albumin 3.5 (3.2-5.2) gm/dL Globulin 3.2 (2.2-3.7) gm/dL Albumin/Globulin Ratio 1.1 (1.0-2.3) Beta-Hydroxybutyrate 3.01 H (<0.27) mmol/L Procalcitonin (<0.10) ng/mL Urine Color Urine Appearance (Clear) Urine pH (5.0-9.0) Ur Specific [place] (1.000-1.035) Urine Protein (Negative) mg/dL Urine Glucose (UA) (Negative) mg/dL Urine Ketones (Negative) mg/dL Urine Occult Blood (Negative) ashley/mcL Urine Nitrate (Negative) Urine Bilirubin (Negative) mg/dL Urine Urobilinogen mg/dL Ur Leukocyte Esterase (Negative) /uL Urine RBC (0-3) /hpf Urine WBC (0-4) /hpf Ur Squamous Epith Cells (0-4) /hpf Urine Bacteria (0) /hpf Hyaline Casts (0-2) /lph Granular Casts (0-0) /lph Urine Mucus (None) /hpf Ur Culture Indicated? 08/12/21 08/12/21 08/12/21 Range/Units 19:15 19:15 19:15 WBC (4.5-11.0) K/mcL RBC (3.59-5.38) M/mcL Hgb (11.2-15.7) g/dL Hct (34.1-44.9) % POC Hct (36-48) % MCV (80.0-100.0) fL MCH (26.0-34.0) pg MCHC (31.0-36.0) g/dL RDW (11.5-14.5) % Plt Count (140-440) K/mcL MPV (7.4-10.4) fL Neut % (Auto) (38.0-78.0) % Lymph % (Auto) (15.5-49.0) % [place] % (Auto) (1.0-12.0) % Eos % (Auto) (0.0-7.0) % Baso % (Auto) (0.0-2.0) % Lymph # (Auto) (1.50-4.80) K/mcL [place] # (Auto) (0.10-0.90) K/mcL Eos # (Auto) (0.00-0.70) K/mcL Baso # (Auto) (0.00-0.30) K/mcL Seg Neutrophils % (38-78) % Band Neutrophils % (0-10) % Lymphocytes % (15-49) % Monocytes % (Manual) (1-12) % Absolute Neutrophils (1.80-8.00) K/mcL Platelet Estimate (Normal) RBC Morphology (Normal) Anisocytosis (None Seen) Macrocytosis (None Seen) D-Dimer (0.27-0.5) ug/mL ABG Methemoglobin 0.6 (0.4-1.5) % VBG pH 7.38 (7.32-7.42) U VBG pCO2 36.7 L (41.0-51.0) mmHg VBG pO2 43.8 H (25.0-40.0) mmHg VBG HCO3 21.3 L (24.0-28.0) mmol/L VBG Total CO2 22.4 L (25.0-29.0) mmol/L VBG O2 Saturation 70.3 H (40.0-70.0) % VBG Base Excess -3 L (-2-2) VBG Lactic Acid 4.0 H* (0.5-2.0) mmol/L Carboxyhemoglobin 4.0 H (0.0-1.5) % THgb Total Hemoglobin 16.5 H (12.0-15.0) gm/Dl POC Sodium (133-145) mEq/L Sodium (133-145) mmol/L POC Potassium (3.3-5.1) mEql/L Potassium (3.3-5.1) mmol/L POC Chloride (96-108) mEq/L Chloride (96-108) mmol/L Carbon Dioxide (22-30) mmol/L POC Total CO2 (22-30) mmol/L Anion Gap (8.0-16.0) POC BUN (6-20) mg/dL BUN (8-23) mg/dL Creatinine (0.6-1.1) mg/dL POC Creatinine (0.6-1.2) mg/dL GFR Calculation Glucose (70-105) mg/dL POC Glucose (70-105) mg/dL Calcium (8.6-10.4) mg/dL POC WB Ioniz Calcium (1.16-1.32) mmEq/L Total Bilirubin (0.1-1.0) mg/dL AST (<32) U/L ALT (<40) U/L Alkaline Phosphatase (39-117) U/L Troponin T (<0.03) ng/mL NT-Pro-B Natriuret Pep 26132.0 H (<450.0) pg/mL Total Protein (5.9-8.4) gm/dL Albumin (3.2-5.2) gm/dL Globulin (2.2-3.7) gm/dL Albumin/Globulin Ratio (1.0-2.3) Beta-Hydroxybutyrate (<0.27) mmol/L Procalcitonin (<0.10) ng/mL Urine Color Urine Appearance (Clear) Urine pH (5.0-9.0) Ur Specific [place] (1.000-1.035) Urine Protein (Negative) mg/dL Urine Glucose (UA) (Negative) mg/dL Urine Ketones (Negative) mg/dL Urine Occult Blood (Negative) ashley/mcL Urine Nitrate (Negative) Urine Bilirubin (Negative) mg/dL Urine Urobilinogen mg/dL Ur Leukocyte Esterase (Negative) /uL Urine RBC (0-3) /hpf Urine WBC (0-4) /hpf Ur Squamous Epith Cells (0-4) /hpf Urine Bacteria (0) /hpf Hyaline Casts (0-2) /lph Granular Casts (0-0) /lph Urine Mucus (None) /hpf Ur Culture Indicated? 08/12/21 08/12/21 08/12/21 Range/Units 19:15 19:15 19:15 WBC (4.5-11.0) K/mcL RBC (3.59-5.38) M/mcL Hgb (11.2-15.7) g/dL Hct (34.1-44.9) % POC Hct (36-48) % MCV (80.0-100.0) fL MCH (26.0-34.0) pg MCHC (31.0-36.0) g/dL RDW (11.5-14.5) % Plt Count (140-440) K/mcL MPV (7.4-10.4) fL Neut % (Auto) (38.0-78.0) % Lymph % (Auto) (15.5-49.0) % [place] % (Auto) (1.0-12.0) % Eos % (Auto) (0.0-7.0) % Baso % (Auto) (0.0-2.0) % Lymph # (Auto) (1.50-4.80) K/mcL [place] # (Auto) (0.10-0.90) K/mcL Eos # (Auto) (0.00-0.70) K/mcL Baso # (Auto) (0.00-0.30) K/mcL Seg Neutrophils % 67 (38-78) % Band Neutrophils % 15 H (0-10) % Lymphocytes % 11 L (15-49) % Monocytes % (Manual) 7 (1-12) % Absolute Neutrophils (1.80-8.00) K/mcL Platelet Estimate Clumped A (Normal) RBC Morphology Abnormal A (Normal) Anisocytosis 1+ A (None Seen) Macrocytosis 1+ A (None Seen) D-Dimer > 20.0 H (0.27-0.5) ug/mL ABG Methemoglobin (0.4-1.5) % VBG pH (7.32-7.42) U VBG pCO2 (41.0-51.0) mmHg VBG pO2 (25.0-40.0) mmHg VBG HCO3 (24.0-28.0) mmol/L VBG Total CO2 (25.0-29.0) mmol/L VBG O2 Saturation (40.0-70.0) % VBG Base Excess (-2-2) VBG Lactic Acid (0.5-2.0) mmol/L Carboxyhemoglobin (0.0-1.5) % THgb Total Hemoglobin (12.0-15.0) gm/Dl POC Sodium (133-145) mEq/L Sodium (133-145) mmol/L POC Potassium (3.3-5.1) mEql/L Potassium (3.3-5.1) mmol/L POC Chloride (96-108) mEq/L Chloride (96-108) mmol/L Carbon Dioxide (22-30) mmol/L POC Total CO2 (22-30) mmol/L Anion Gap (8.0-16.0) POC BUN (6-20) mg/dL BUN (8-23) mg/dL Creatinine (0.6-1.1) mg/dL POC Creatinine (0.6-1.2) mg/dL GFR Calculation Glucose (70-105) mg/dL POC Glucose (70-105) mg/dL Calcium (8.6-10.4) mg/dL POC WB Ioniz Calcium (1.16-1.32) mmEq/L Total Bilirubin (0.1-1.0) mg/dL AST (<32) U/L ALT (<40) U/L Alkaline Phosphatase (39-117) U/L Troponin T (<0.03) ng/mL NT-Pro-B Natriuret Pep (<450.0) pg/mL Total Protein (5.9-8.4) gm/dL Albumin (3.2-5.2) gm/dL Globulin (2.2-3.7) gm/dL Albumin/Globulin Ratio (1.0-2.3) Beta-Hydroxybutyrate (<0.27) mmol/L Procalcitonin 2.27 H (<0.10) ng/mL Urine Color Urine Appearance (Clear) Urine pH (5.0-9.0) Ur Specific [place] (1.000-1.035) Urine Protein (Negative) mg/dL Urine Glucose (UA) (Negative) mg/dL Urine Ketones (Negative) mg/dL Urine Occult Blood (Negative) ashley/mcL Urine Nitrate (Negative) Urine Bilirubin (Negative) mg/dL Urine Urobilinogen mg/dL Ur Leukocyte Esterase (Negative) /uL Urine RBC (0-3) /hpf Urine WBC (0-4) /hpf Ur Squamous Epith Cells (0-4) /hpf Urine Bacteria (0) /hpf Hyaline Casts (0-2) /lph Granular Casts (0-0) /lph Urine Mucus (None) /hpf Ur Culture Indicated? 08/12/21 08/12/21 Range/Units 19:34 23:18 WBC (4.5-11.0) K/mcL RBC (3.59-5.38) M/mcL Hgb (11.2-15.7) g/dL Hct (34.1-44.9) % POC Hct 43 (36-48) % MCV (80.0-100.0) fL MCH (26.0-34.0) pg MCHC (31.0-36.0) g/dL RDW (11.5-14.5) % Plt Count (140-440) K/mcL MPV (7.4-10.4) fL Neut % (Auto) (38.0-78.0) % Lymph % (Auto) (15.5-49.0) % [place] % (Auto) (1.0-12.0) % Eos % (Auto) (0.0-7.0) % Baso % (Auto) (0.0-2.0) % Lymph # (Auto) (1.50-4.80) K/mcL [place] # (Auto) (0.10-0.90) K/mcL Eos # (Auto) (0.00-0.70) K/mcL Baso # (Auto) (0.00-0.30) K/mcL Seg Neutrophils % (38-78) % Band Neutrophils % (0-10) % Lymphocytes % (15-49) % Monocytes % (Manual) (1-12) % Absolute Neutrophils (1.80-8.00) K/mcL Platelet Estimate (Normal) RBC Morphology (Normal) Anisocytosis (None Seen) Macrocytosis (None Seen) D-Dimer (0.27-0.5) ug/mL ABG Methemoglobin (0.4-1.5) % VBG pH (7.32-7.42) U VBG pCO2 (41.0-51.0) mmHg VBG pO2 (25.0-40.0) mmHg VBG HCO3 (24.0-28.0) mmol/L VBG Total CO2 (25.0-29.0) mmol/L VBG O2 Saturation (40.0-70.0) % VBG Base Excess (-2-2) VBG Lactic Acid (0.5-2.0) mmol/L Carboxyhemoglobin (0.0-1.5) % THgb Total Hemoglobin (12.0-15.0) gm/Dl POC Sodium 152 H (133-145) mEq/L Sodium (133-145) mmol/L POC Potassium 3.7 (3.3-5.1) mEql/L Potassium (3.3-5.1) mmol/L POC Chloride 119 H (96-108) mEq/L Chloride (96-108) mmol/L Carbon Dioxide (22-30) mmol/L POC Total CO2 21 L (22-30) mmol/L Anion Gap (8.0-16.0) POC BUN 82 H (6-20) mg/dL BUN (8-23) mg/dL Creatinine (0.6-1.1) mg/dL POC Creatinine 3.4 H (0.6-1.2) mg/dL GFR Calculation Glucose (70-105) mg/dL POC Glucose 243 H (70-105) mg/dL Calcium (8.6-10.4) mg/dL POC WB Ioniz Calcium 1.19 (1.16-1.32) mmEq/L Total Bilirubin (0.1-1.0) mg/dL AST (<32) U/L ALT (<40) U/L Alkaline Phosphatase (39-117) U/L Troponin T (<0.03) ng/mL NT-Pro-B Natriuret Pep (<450.0) pg/mL Total Protein (5.9-8.4) gm/dL Albumin (3.2-5.2) gm/dL Globulin (2.2-3.7) gm/dL Albumin/Globulin Ratio (1.0-2.3) Beta-Hydroxybutyrate (<0.27) mmol/L Procalcitonin (<0.10) ng/mL Urine Color Yellow Urine Appearance Clear (Clear) Urine pH 5.0 (5.0-9.0) Ur Specific [place] 1.020 (1.000-1.035) Urine Protein 100 mg/dl A (Negative) mg/dL Urine Glucose (UA) 250 mg/dl A (Negative) mg/dL Urine Ketones Trace A (Negative) mg/dL Urine Occult Blood Trace-intact A (Negative) ashley/mcL Urine Nitrate Negative (Negative) Urine Bilirubin Negative (Negative) mg/dL Urine Urobilinogen Normal mg/dL Ur Leukocyte Esterase Negative (Negative) /uL Urine RBC 0 (0-3) /hpf Urine WBC < 1 (0-4) /hpf Ur Squamous Epith Cells 1 (0-4) /hpf Urine Bacteria Few A (0) /hpf Hyaline Casts 12 H (0-2) /lph Granular Casts 7 H (0-0) /lph Urine Mucus Few A (None) /hpf Ur Culture Indicated? Yes ED POC Tests ED POC Tests: [facility] - SARS Antigen Positive Discharge Plan Patient/Caregiver Discharge Instructions Pt seen by CLINICAL LAB ASSISTANT/PA only: No Clinical Impression: COVID, Sepsis, Hypoxia Patient Disposition: Xfer As Inpt ([facility]) Condition: Critical Discharge Date/Time: 08/13/21 01:36
--- NOTE | 2021-08-12 22:43 | Internal Med History&Physical ---
HPI History of Present Illness Patient information: Note initiated : 08/12/21 at 10:30 pm Service Date, if different from initiated Date: [] Patient: Xi Smith a 81 y/o F admitted on for Abnormal labs. Chief Complaint: [] History of present illness: Ms. Smith is a 81 year old F patient sent in from [facility] for abnormal labs Has history of COPD renal failure CHF. Diagnosed with Covid 7 days ago. She was hypoxic in the 80s. She was hypotensive. She was hypernatremic and tachycardic. Lactate was elevated at 4. Function appeared to be a little bit above baseline. Bicarb little bit low and beta hydroxybutyric acid elevated. Anion gap elevated. Urinalysis with trace ketones hyaline casts all indicative of hypovolemia and she had glucose as well. There is a concern for sepsis in the ER so she was given fluid boluses judiciously because of history of CHF and IV antibiotics. Chest x-ray and urinalysis unremarkable. Blood cultures were drawn. She does have a fever. Loop no leukocytosis. Last echo was a several months ago which showed a EF of 45 to 50% and some diastolic dysfunction, not otherwise impressive. Patient has dementia and is essentially nonverbal. He is a DNR and her son is the power of compliance attorney. He requested that transfer from the nursing facility here. We cannot rule out a PE here. He would need to be transferred somewhere where VQ scan can be done. Thus discussion was undertaken with by the ED physician and the son. He states she has been declining of late and given that she lays in bed all day and is has advanced dementia he does not want to be aggressive. He does not want to transfer her. Just wants to continue current treatment and see how she responds. Patient was admitted in May for acute on chronic anemia of uncertain cause And acute on chronic kidney disease Unable to gather review of systems PFSH PFS All Active Problems (Updated 08/12/21 @ 22:10 by Hung Grimm DO) COVID (Acute) Sepsis (Acute) Hypoxia (Acute) Demand ischemia (Acute) Obesity (BMI 30.0-34.9) (Acute) Community acquired pneumonia (Acute) Hyperkalemia (Acute) Chronic kidney disease, stage 4 (severe) (Acute) CHF exacerbation (Acute) Congestive heart failure (Acute) Acute hyperkalemia (Acute) Elevated troponin (Acute) Acute renal insufficiency (Acute) Behavior disturbance (Acute) Severe dementia (Acute) Hematochezia (Acute) CHF (congestive heart failure) (Acute) Seizure (Acute) Anemia, normocytic normochromic (Acute) Chronic kidney disease (Acute) SunDown syndrome (Acute) Acute coronary syndrome (Acute) Abnormal CT scan, head (Acute) Injury due to fall (Acute) Liver mass (Acute) Atherosclerosis of aorta (Acute) Abnormal finding on urinalysis (Acute) Acute renal failure (Acute) Hypertension (Acute) Type 2 diabetes mellitus with hyperlipidemia (Acute) Alzheimer's dementia (Acute) GERD (gastroesophageal reflux disease) (Acute) Hx of transient ischemic attack (TIA) (Acute) Major depressive disorder, recurrent episode (Acute) Vitamin D deficiency (Acute) Hx of colonoscopy (Acute) 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 30-59 (Acute) Osteoporosis (Acute) Anxiety (Acute) Chronic heartburn (Acute) Vascular dementia without behavioral disturbance (Chronic) Medical History (Updated 08/12/21 @ 22:10 by Hung Grimm DO) Abnormal CT scan, head Abnormal finding on urinalysis Acute coronary syndrome Acute renal failure Alzheimer's dementia Anxiety Atherosclerosis of aorta Chronic heartburn GERD (gastroesophageal reflux disease) Hx of transient ischemic attack (TIA) Hypertension Injury due to fall Liver mass Major depressive disorder, recurrent episode Osteoporosis 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 30-59 Type 2 diabetes mellitus with hyperlipidemia Vascular dementia without behavioral disturbance Vitamin D deficiency Surgical History History of cholecystectomy History of hip surgery Hx of colonoscopy Social History lives independently: No marital status: alcohol intake frequency: does not drink substance use type: does not use MEDS/ALLERGIES Home Medications and Allergies Home Medications Medication Instructions Recorded Confirmed Type blood sugar diagnostic (OneTouch #10 each 07/21/20 05/21/21 Rx Verio test strips) cholecalciferol (vitamin D3) 25 25 mcg PO QDAY #90 tab 07/21/20 05/21/21 Rx mcg (1,000 unit) tablet lancets 30 gauge (OneTouch Delica #100 each 07/21/20 05/21/21 Rx Lancets) calcium polycarbophil 625 mg 625 mg PO QDAY tab 09/23/20 05/21/21 History tablet (FiberCon) ferrous gluconate 324 mg (38 mg 324 mg PO QDAY 09/23/20 05/21/21 History iron) tablet melatonin 3 mg capsule 3 mg PO HS #30 cap 09/23/20 05/21/21 Rx aripiprazole 10 mg tablet 10 mg PO QHS #30 ea 09/29/20 05/21/21 Rx nystatin 100,000 unit/gram topical 1 applic TOPICAL QID #30 g 04/27/21 05/21/21 Rx powder rosuvastatin 40 mg tablet See Rx Instructions .ROUTE 05/03/21 05/21/21 Rx .COMPLEX #30 each empagliflozin 10 mg tablet 10 mg PO QAM #30 tab 05/26/21 Rx (Jardiance) trazodone 50 mg tablet 50 mg PO HS PRN #30 tab 05/26/21 Rx Allergies Allergy/AdvReac Type Severity Reaction Status Date / Time quetiapine AdvReac Intermediate extreme Verified 08/12/21 17:29 fatique EXAM Constitutional Vitals: Temp Pulse Resp BP Pulse Ox 98.9 F 109 H 20 87/50 97 08/12/21 20:34 08/12/21 22:16 08/12/21 22:16 08/12/21 22:16 08/12/21 22:16 Exam: General: Awake, No acute Distress Eyes/N/T: PERRL, dryMM Head/Neck: neck supple, normocephalic atraumatic CV: Tacky but regular, No murmurs, normal s1/s2 Pulm: Clear b/l, no wheezing/rhonchi/rales Abd: soft, nontender, +BS x4 Ext: no clubbing/cyanosis, trace edema(has h/o chronic peripheral edema) Neuro: Patient nonverbal and uncooperative with exam skin: warm/dry DATA Data Completed and Pending Labs: Labs from last 24 hours 08/12/21 08/12/21 08/12/21 19:34 19:15 19:15 WBC RBC Hgb Hct MCV MCH MCHC RDW Plt Count MPV Neut % (Auto) Lymph % (Auto) [place] % (Auto) Eos % (Auto) Baso % (Auto) Lymph # (Auto) [place] # (Auto) Eos # (Auto) Baso # (Auto) Absolute Neutrophils D-Dimer Pending ABG Methemoglobin 0.6 VBG pH 7.38 VBG pCO2 36.7 L VBG pO2 43.8 H VBG HCO3 21.3 L VBG Total CO2 22.4 L VBG O2 Saturation 70.3 H VBG Base Excess -3 L VBG Lactic Acid Carboxyhemoglobin 4.0 H Total Hemoglobin 16.5 H Sodium Potassium Chloride Carbon Dioxide Anion Gap BUN Creatinine GFR Calculation Glucose Calcium Total Bilirubin AST ALT Alkaline Phosphatase Troponin T NT-Pro-B Natriuret Pep Total Protein Albumin Globulin Albumin/Globulin Ratio Beta-Hydroxybutyrate Urine Color Yellow Urine Appearance Clear Urine pH 5.0 Ur Specific [place] 1.020 Urine Protein 100 mg/dl A Urine Glucose (UA) 250 mg/dl A Urine Ketones Trace A Urine Occult Blood Trace-intact A Urine Nitrate Negative Urine Bilirubin Negative Urine Urobilinogen Normal Ur Leukocyte Esterase Negative Urine RBC 0 Urine WBC < 1 Ur Squamous Epith Cells 1 Urine Bacteria Few A Hyaline Casts 12 H Granular Casts 7 H Urine Mucus Few A Ur Culture Indicated? Yes 08/12/21 08/12/21 08/12/21 19:15 19:15 19:15 WBC RBC Hgb Hct MCV MCH MCHC RDW Plt Count MPV Neut % (Auto) Lymph % (Auto) [place] % (Auto) Eos % (Auto) Baso % (Auto) Lymph # (Auto) [place] # (Auto) Eos # (Auto) Baso # (Auto) Absolute Neutrophils D-Dimer ABG Methemoglobin VBG pH VBG pCO2 VBG pO2 VBG HCO3 VBG Total CO2 VBG O2 Saturation VBG Base Excess VBG Lactic Acid 4.0 H* Carboxyhemoglobin Total Hemoglobin Sodium Potassium Chloride Carbon Dioxide Anion Gap BUN Creatinine GFR Calculation Glucose Calcium Total Bilirubin AST ALT Alkaline Phosphatase Troponin T 0.22 H* NT-Pro-B Natriuret Pep 36401.0 H Total Protein Albumin Globulin Albumin/Globulin Ratio Beta-Hydroxybutyrate Urine Color Urine Appearance Urine pH Ur Specific Franklin Urine Protein Urine Glucose (UA) Urine Ketones Urine Occult Blood Urine Nitrate Urine Bilirubin Urine Urobilinogen Ur Leukocyte Esterase Urine RBC Urine WBC Ur Squamous Epith Cells Urine Bacteria Hyaline Casts Granular Casts Urine Mucus Ur Culture Indicated? 08/12/21 08/12/21 19:15 19:15 WBC 9.0 RBC 5.65 H Hgb 16.9 H Hct 52.5 H MCV 92.9 MCH 29.9 MCHC 32.2 RDW 14.6 H Plt Count 182 MPV 12.7 H Neut % (Auto) 85.0 H Lymph % (Auto) 10.9 L [place] % (Auto) 3.9 Eos % (Auto) 0 Baso % (Auto) 0.2 Lymph # (Auto) 0.98 L [place] # (Auto) 0.35 Eos # (Auto) 0 Baso # (Auto) 0.02 Absolute Neutrophils 7.61 D-Dimer ABG Methemoglobin VBG pH VBG pCO2 VBG pO2 VBG HCO3 VBG Total CO2 VBG O2 Saturation VBG Base Excess VBG Lactic Acid Carboxyhemoglobin Total Hemoglobin Sodium 151 H Potassium 3.7 Chloride 108 Carbon Dioxide 18 L Anion Gap 25.0 H BUN 74 H Creatinine 2.8 H GFR Calculation 15 Glucose 245 H Calcium 9.9 Total Bilirubin 1.1 H AST 57 H ALT 20 Alkaline Phosphatase 58 Troponin T NT-Pro-B Natriuret Pep Total Protein 6.7 Albumin 3.5 Globulin 3.2 Albumin/Globulin Ratio 1.1 Beta-Hydroxybutyrate 3.01 H Urine Color Urine Appearance Urine pH Ur Specific Franklin Urine Protein Urine Glucose (UA) Urine Ketones Urine Occult Blood Urine Nitrate Urine Bilirubin Urine Urobilinogen Ur Leukocyte Esterase Urine RBC Urine WBC Ur Squamous Epith Cells Urine Bacteria Hyaline Casts Granular Casts Urine Mucus Ur Culture Indicated? A/P Narrative A/P Narrative: A: *Covid pneumonia: *Acute hypoxic respiratory failure: *Dehydration w/hypernatremia & volume depletion: *Hypotension: Had low blood pressure on last admit *Lactic acidosis: 2/2 hypotension and hypoxia *?Severe Sepsis: unknown source, UA/CXR unremarkable -fever, no leukocytosis *DVT, presumed PE but cant definitively diagnosis PE here, need V/Q scan. son wants no further w/u that would require transfer *AG Met acidosis 2/2 above with likely starvation ketosis vs dka: *HERMAN on CKD IV: *DM: *Advanced dementia: *Generalized weakness/deconditioning/debility: Poor functional status *h/o mild diastolic CHF, calculated EF ~50% *goals of care: per son, no transfer, continue current therapy and await response P: -rem/dex/alyse -O2 support -hypotonic IVF, f/u lactate and sodium -IV abx pending BC -anticoagulation lovenox renally dosed -SSI -further family discussions regarding goals -pt/ot -Home medication reconciliation -ppx: lovenox Extremely guarded prognosis DNR Time Spent With Patient Time: Total time spent is greater than 50% in coordination of care (as documented) at patient's floor/unit and/or counseling patient:
[2021-08-12] MEDS ORDERED: ENOXAPARIN 60 MG/0.6 ML SYRINGE SQ ONE (22:50)
[2021-08-12 23:25] LABS: POC Blood Urea Nitrogen 82 mg/dL (6-20); POC CO2 21 mmol/L (22-30); POC Calcium, Ionized 1.19 mmEq/L (1.16-1.32); POC Chloride 119 mEq/L (96-108); POC Creatinine 3.4 mg/dL (0.6-1.2); POC Glucose, Random 243 mg/dL (70-105); POC Hematocrit 43 % (36-48); POC Potassium 3.7 mEql/L (3.3-5.1); POC Sodium 152 mEq/L (133-145)
[2021-08-12 23:25] LABS: Anisocytosis 1+ (None Seen); Band Neutrophils % 15 % (0-10); Lymphocytes % 11 % (15-49); Macrocytosis 1+ (None Seen); Monocytes % (Manual) 7 % (1-12); Platelet Estimate CLUMPED (Normal); RBC Morphology ABNORMAL (Normal); Segmented Neutrophils % 67 % (38-78)
[2021-08-13] MEDS ORDERED: DEXTROSE 5% IN WATER 1,000 ML IV SCH (01:44)
[2021-08-13] MEDS ORDERED: REMDESIVIR 200 MG in 0.9 % SODIUM CHLORIDE 250 ML IV ONE (01:44)
[2021-08-13] MEDS ORDERED: POTASSIUM CHLORIDE 40 MEQ in DEXTROSE 5% IN WATER 500 ML IV PRN (01:44)
[2021-08-13] MEDS ORDERED: VANCOMYCIN PER PHARMACY IV SCH (01:44)
[2021-08-13] MEDS ORDERED: ACETAMINOPHEN 325 MG TABLET PO PRN (01:44)
[2021-08-13] MEDS ORDERED: 0.9 % SODIUM CHLORIDE 250 ML IV SCH (01:44)
[2021-08-13] MEDS ORDERED: IPRATROPIUM/ALBUTEROL 3 ML AMPUL.NEB NEB PRN (01:44)
[2021-08-13] MEDS ORDERED: POTASSIUM CHLORIDE 20 MEQ TABLET PO PRN ×2 (01:44)
[2021-08-13] MEDS ORDERED: ONDANSETRON 4 MG/2 ML VIAL IV PRN (01:44)
[2021-08-13] MEDS ORDERED: REMDESIVIR 100 MG in 0.9 % SODIUM CHLORIDE 250 ML IV SCH ×2 (01:44→18:00)
[2021-08-13] MEDS ORDERED: MAGNESIUM SULFATE 2 GM/50 ML BAG IV PRN (01:44)
[2021-08-13] MEDS ORDERED: DEXTROSE 31 GM ORAL.SUSP PO PRN (01:44)
[2021-08-13] MEDS ORDERED: NOREPINEPHRINE BITARTRATE 8 MG in 0.9 % SODIUM CHLORIDE 242 ML IV SCH ×2 (01:44→02:15)
[2021-08-13] MEDS ORDERED: DEXTROSE 50% 50 ML VIAL IV PRN (01:44)
[2021-08-13] MEDS ORDERED: NOREPINEPHRINE BITARTRATE 4 MG/4 ML VIAL IV ONE ×2 (01:58→02:22)
[2021-08-13] MEDS: CEFEPIME 1 GM VIAL IV SCH ×2 (02:43→09:39)
[2021-08-13] MEDS: DEXAMETHASONE 10 MG/ML VIAL IV SCH ×2 (02:43→09:39)
[2021-08-13] MEDS: INSULIN LISPRO 1 UNIT/0.01 ML UNIT SQ SCH ×3 (02:45→07:22)
[2021-08-13] MEDS ORDERED: INSULIN LISPRO 1 UNIT/0.01 ML UNIT SQ ONE ×2 (02:46→04:14)
[2021-08-13 03:25] LABS: Hemoglobin A1C 6.9 % Hgb (4.0-6.0)
[2021-08-13] MEDS ORDERED: DEXTROSE 5% IN WATER 250 ML IV SCH (03:30)
[2021-08-13 05:40] LABS: POC Calcium, Ionized 1.17 mmEq/L (1.16-1.32); POC Creatinine 3.4 mg/dL (0.6-1.2)
[2021-08-13] MEDS ORDERED: 0.9 % SODIUM CHLORIDE 10 ML SYRINGE IV SCH (06:00)
[2021-08-13] MEDS ORDERED: PANTOPRAZOLE 40 MG VIAL IV SCH (07:30)
[2021-08-13] MEDS ORDERED: INSULIN GLARGINE, HUMAN 1 UNIT/0.01 ML SQ ONE (07:43)
--- NOTE | 2021-08-13 07:46 | Internal Med Progress Note ---
SUBJECTIVE Subjective Patient information: Note initiated : 08/13/21 at 7:41 am Service Date, if different from initiated Date: [] Patient: Xi Smith a 81 y/o F admitted on 08/13/21 for Abnormal labs. Chief Complaint: [] Interval history: History of present illness: Ms. Smith is a 81 year old F patient sent in from [facility] for abnormal labs Has history of COPD renal failure CHF. Diagnosed with Covid 7 days ago. She was hypoxic in the 80s. She was hypotensive. She was hypernatremic and tachycardic. Lactate was elevated at 4. Function appeared to be a little bit above baseline. Bicarb little bit low and beta hydroxybutyric acid elevated. Anion gap elevated. Urinalysis with trace ketones hyaline casts all indicative of hypovolemia and she had glucose as well. There is a concern for sepsis in the ER so she was given fluid boluses judiciously because of history of CHF and IV antibiotics. Chest x-ray and urinalysis unremarkable. Blood cultures were drawn. She does have a fever. Loop no leukocytosis. Last echo was a several months ago which showed a EF of 45 to 50% and some diastolic dysfunction, not otherwise impressive. Patient has dementia and is essentially nonverbal. He is a DNR and her son is the power of insurance attorney. He requested that transfer from the nursing facility here. We cannot rule out a PE here. He would need to be transferred somewhere where VQ scan can be done. Thus discussion was undertaken with by the ED physician and the son. He states she has been declining of late and given that she lays in bed all day and is has advanced dementia he does not want to be aggressive. He does not want to transfer her. Just wants to continue current treatment and see how she responds. Patient was admitted in May for acute on chronic anemia of uncertain cause And acute on chronic kidney disease Unable to gather review of systems 08/13 Had to be placed on vasopressors last night. Lactate initially improved now worsened again. Leukocytosis. To have family discussion regarding goals. Constitutional Vitals: Vital Signs Temp Pulse Resp BP Pulse Ox 98.2 F 85 44 H 112/57 100 08/13/21 07:01 08/13/21 07:01 08/13/21 07:01 08/13/21 07:01 08/13/21 07:01 Period Temp Pulse Resp BP Sys/Mitchell Pulse Ox Last 24 Hr 98.2 F-102.2 F 35-132 0-50 69-129/41-73 88-100 Intake and Output 08/12/21 08/13/21 08/13/21 21:59 05:59 13:59 Intake Total 600 1007 95 Output Total 80 75 Balance 600 927 20 Weight 62.142 kg 57.697 kg Intake & Output: Intake & Output 08/12/21 08/13/21 08/13/21 21:59 05:59 13:59 Intake Total 600 1007 95 Output Total 80 75 Balance 600 927 20 Weight 62.142 kg 57.697 kg Intake: IV 600 1007 95 Sodium Chloride 0.9% 250 ml @ 250 Wide Open IV BOLUS ONE Rx#: [id number] Sodium Chloride 0.9% 500 ml @ 500 Wide Open IV BOLUS ONE Rx#: [id number] Dextrose 5% in Water 250 ml @ 250 500 mls/hr IV .Q30M [facility] Rx#: [id number] Levophed 8 mg In Sodium 7 95 Chloride 0.9% 242 ml @ 10 MCG/ MIN 18.75 mls/hr IV Q14H [place] Rx #:[id number] Veklury 200 mg In Sodium 250 Chloride 0.9% 250 ml @ 500 mls/ hr IV ONCE ONE Rx#:[id number] Vancomycin 1,000 mg In Sodium 250 Chloride 0.9% 250 ml @ 250 mls/ hr IV ONCE ONE Rx#:[id number] Output: Urine Catheter Amount 75 75 Void Amount 5 Uretheral (Mauricio) 5 Other: Urine Appearance Cloudy Cloudy Fem Cath Clear Sediment Uretheral (Mauricio) Cloudy Urine Color Dark Yellow Light Sarika Fem Cath Dark Yellow Uretheral (Mauricio) Bright Yellow Urine Odor Normal Normal Uretheral (Mauricio) Normal Exam: General: Awake, No acute Distress Eyes/N/T: PERRL, Head/Neck: neck supple, CV: Tacky but regular, No murmurs, Pulm: mild ronchi on left, no wheezing Abd: soft, nontender, +BS x4 Ext: no clubbing/cyanosis, trace edema(has h/o chronic peripheral edema) Neuro: Patient nonverbal and uncooperative with exam skin: warm/dry OBJ DATA Labs CBC & Chem 7: 08/13/21 05:30 08/13/21 05:30 Labs: Abnormal Lab Results 08/13/21 08/13/21 08/12/21 19:15 05:30 23:18 RBC Hgb Hct RDW MPV Neut % (Auto) Lymph % (Auto) Lymph # (Auto) Band Neutrophils % Lymphocytes % Platelet Estimate RBC Morphology Anisocytosis Macrocytosis D-Dimer VBG pCO2 VBG pO2 VBG HCO3 VBG Total CO2 VBG O2 Saturation VBG Base Excess VBG Lactic Acid Carboxyhemoglobin Total Hemoglobin POC Sodium 150 H 152 H Sodium POC Potassium 3.0 L POC Chloride 117 H 119 H Carbon Dioxide POC Total CO2 18 L 21 L Anion Gap POC BUN 85 H 82 H BUN Creatinine POC Creatinine 3.4 H 3.4 H Glucose POC Glucose 348 H 243 H Hemoglobin A1c 6.9 H Total Bilirubin AST Troponin T NT-Pro-B Natriuret Pep Beta-Hydroxybutyrate Procalcitonin Urine Protein Urine Glucose (UA) Urine Ketones Urine Occult Blood Urine Bacteria Hyaline Casts Granular Casts Urine Mucus 08/12/21 08/12/21 08/12/21 19:34 19:15 19:15 RBC Hgb Hct RDW MPV Neut % (Auto) Lymph % (Auto) Lymph # (Auto) Band Neutrophils % 15 H Lymphocytes % 11 L Platelet Estimate Clumped A RBC Morphology Abnormal A Anisocytosis 1+ A Macrocytosis 1+ A D-Dimer VBG pCO2 VBG pO2 VBG HCO3 VBG Total CO2 VBG O2 Saturation VBG Base Excess VBG Lactic Acid Carboxyhemoglobin Total Hemoglobin POC Sodium Sodium POC Potassium POC Chloride Carbon Dioxide POC Total CO2 Anion Gap POC BUN BUN Creatinine POC Creatinine Glucose POC Glucose Hemoglobin A1c Total Bilirubin AST Troponin T NT-Pro-B Natriuret Pep Beta-Hydroxybutyrate Procalcitonin 2.27 H Urine Protein 100 mg/dl A Urine Glucose (UA) 250 mg/dl A Urine Ketones Trace A Urine Occult Blood Trace-intact A Urine Bacteria Few A Hyaline Casts 12 H Granular Casts 7 H Urine Mucus Few A 08/12/21 08/12/21 08/12/21 19:15 19:15 19:15 RBC Hgb Hct RDW MPV Neut % (Auto) Lymph % (Auto) Lymph # (Auto) Band Neutrophils % Lymphocytes % Platelet Estimate RBC Morphology Anisocytosis Macrocytosis D-Dimer > 20.0 H VBG pCO2 36.7 L VBG pO2 43.8 H VBG HCO3 21.3 L VBG Total CO2 22.4 L VBG O2 Saturation 70.3 H VBG Base Excess -3 L VBG Lactic Acid 4.0 H* Carboxyhemoglobin 4.0 H Total Hemoglobin 16.5 H POC Sodium Sodium POC Potassium POC Chloride Carbon Dioxide POC Total CO2 Anion Gap POC BUN BUN Creatinine POC Creatinine Glucose POC Glucose Hemoglobin A1c Total Bilirubin AST Troponin T NT-Pro-B Natriuret Pep Beta-Hydroxybutyrate Procalcitonin Urine Protein Urine Glucose (UA) Urine Ketones Urine Occult Blood Urine Bacteria Hyaline Casts Granular Casts Urine Mucus 08/12/21 08/12/21 08/12/21 19:15 19:15 19:15 RBC Hgb Hct RDW MPV Neut % (Auto) Lymph % (Auto) Lymph # (Auto) Band Neutrophils % Lymphocytes % Platelet Estimate RBC Morphology Anisocytosis Macrocytosis D-Dimer VBG pCO2 VBG pO2 VBG HCO3 VBG Total CO2 VBG O2 Saturation VBG Base Excess VBG Lactic Acid Carboxyhemoglobin Total Hemoglobin POC Sodium Sodium 151 H POC Potassium POC Chloride Carbon Dioxide 18 L POC Total CO2 Anion Gap 25.0 H POC BUN BUN 74 H Creatinine 2.8 H POC Creatinine Glucose 245 H POC Glucose Hemoglobin A1c Total Bilirubin 1.1 H AST 57 H Troponin T 0.22 H* NT-Pro-B Natriuret Pep 21944.0 H Beta-Hydroxybutyrate 3.01 H Procalcitonin Urine Protein Urine Glucose (UA) Urine Ketones Urine Occult Blood Urine Bacteria Hyaline Casts Granular Casts Urine Mucus 08/12/21 19:15 RBC 5.65 H Hgb 16.9 H Hct 52.5 H RDW 14.6 H MPV 12.7 H Neut % (Auto) 85.0 H Lymph % (Auto) 10.9 L Lymph # (Auto) 0.98 L Band Neutrophils % Lymphocytes % Platelet Estimate RBC Morphology Anisocytosis Macrocytosis D-Dimer VBG pCO2 VBG pO2 VBG HCO3 VBG Total CO2 VBG O2 Saturation VBG Base Excess VBG Lactic Acid Carboxyhemoglobin Total Hemoglobin POC Sodium Sodium POC Potassium POC Chloride Carbon Dioxide POC Total CO2 Anion Gap POC BUN BUN Creatinine POC Creatinine Glucose POC Glucose Hemoglobin A1c Total Bilirubin AST Troponin T NT-Pro-B Natriuret Pep Beta-Hydroxybutyrate Procalcitonin Urine Protein Urine Glucose (UA) Urine Ketones Urine Occult Blood Urine Bacteria Hyaline Casts Granular Casts Urine Mucus Meds: Medications Acetaminophen (Acetaminophen 325 Mg Tablet) 650 mg PO Q4-6HP PRN; Protocol PRN Reason: Per Pain Protocol/Fever > 101 Albuterol/Ipratropium (Ipratropium/Albuterol 3 Ml Ampul.Neb) 3 ml NEB Q4HP PRN PRN Reason: Shortness Of Breath Cefepime HCl (Cefepime 1 Gm Vial) 1 gm IV Q12H [facility]; Protocol Last Admin: 08/13/21 02:43 Dose: Not Given Documented by: Chlorhexidine Gluconate (Chlorhexidine Gluconate 1 Ml Oral.Wanda) 15 ml SWABMOUTH BID [facility] Dexamethasone (Dexamethasone 10 Mg/Ml Vial) 6 mg IV DAILY [facility] Last Admin: 08/13/21 02:43 Dose: Not Given Documented by: Dextrose (Dextrose 50% 50 Ml Vial) 0 ml IV UD PRN PRN Reason: Hypoglycemia Diagnostic Test (Pha) (Accu-Chek 1 Each Strip) 1 each FS Q4 [facility] Last Admin: 08/13/21 07:21 Dose: 1 each Documented by: Docusate Sodium (Docusate Sodium 100 Mg Capsule) 100 mg PO BID [facility] Enoxaparin Sodium (Enoxaparin 40 Mg/0.4 Ml Syringe) 60 mg SQ QHS [facility] Glucose (Dextrose 31 Gm Oral.Susp) 15 gm PO PRN PRN PRN Reason: Hypoglycemia Dextrose (Dextrose 5% In Water) 1,000 mls @ 100 mls/hr IV .Q10H [facility] Last Admin: 08/13/21 03:00 Dose: 100 mls/hr Documented by: Potassium Chloride 40 meq/ (Dextrose) 520 mls @ 130 mls/hr IV UD PRN PRN Reason: K+ < 3.0 Last Admin: 08/13/21 07:24 Dose: 130 mls/hr Documented by: Magnesium Sulfate (Magnesium Sulfate) 2 gm in 50 mls @ 25 mls/hr IV UD PRN PRN Reason: Magnesium </= 1.6 Sodium Chloride (Sodium Chloride 0.9%) 250 mls @ 20 mls/hr IV .[id number] [facility] Last Admin: 08/13/21 02:47 Dose: Not Given Documented by: REMDESIVIR 100 mg/ Sodium (Chloride) 250 mls @ 500 mls/hr IV Q24H [facility] Stop: 08/16/21 18:29 Vancomycin HCl 500 mg/ Sodium (Chloride) 100 mls @ 100 mls/hr IV TODAY@1000 [facility] Stop: 08/13/21 10:59 Insulin Human Lispro (Insulin Lispro 1 Unit/0.01 Ml Unit) 0 unit SQ Q4 [facility]; Protocol Last Admin: 08/13/21 07:22 Dose: 8 units Documented by: Ondansetron HCl (Ondansetron 4 Mg/2 Ml Vial) 4 mg IV Q4-6HP PRN PRN Reason: Nausea And Vomiting Pantoprazole Sodium (Pantoprazole 40 Mg Vial) 40 mg IV QAMAC [facility] Last Admin: 08/13/21 07:24 Dose: 40 mg Documented by: Potassium Chloride (Potassium Chloride 20 Meq Tablet) 20 meq PO UD PRN PRN Reason: K+ < 3.0 Potassium Chloride (Potassium Chloride 20 Meq Tablet) 40 meq PO UD PRN PRN Reason: K+ = 3-3.5 Sodium Chloride (0.9 % Sodium Chloride 10 Ml Syringe) 10 ml IV Q8 [facility] Last Admin: 08/13/21 04:47 Dose: 10 ml Documented by: Vancomycin HCl (Vancomycin Per Pharmacy) 1 order IV UD [facility]; Protocol ABG Interpretation ABG results: 08/12/21 19:15 ABG Methemoglobin 0.6 VBG pH 7.38 VBG pCO2 36.7 L VBG pO2 43.8 H VBG HCO3 21.3 L VBG Total CO2 22.4 L VBG O2 Saturation 70.3 H VBG Base Excess -3 L A/P Narrative A/P Narrative: A: *Covid pneumonia: *Acute hypoxic respiratory failure: -on 2L NC *Dehydration w/hypernatremia & volume depletion: *Hypotension: Had low blood pressure on last admit *Lactic acidosis: 2/2 hypotension and hypoxia *Septic shock: unknown source, UA/CXR unremarkable -fever, bandemia, pct elevated *DVT, presumed PE but cant definitively diagnosis PE here, need V/Q scan. son wants no further w/u that would require transfer *AG Met acidosis 2/2 above with likely starvation ketosis vs dka: *HERMAN on CKD IV: *DM: A1c 6.9 *Advanced dementia: *Generalized weakness/deconditioning/debility: Poor functional status *h/o mild diastolic CHF, calculated EF ~50% *goals of care: per son, no transfer, continue current therapy and await response P: -rem/dex/alyse -O2 support -hypotonic IVF, f/u lactate and sodium -vasopressors -IV abx pending BC -anticoagulation lovenox renally dosed -SSI -further family discussions regarding goals -pt/ot -ppx: lovenox Extremely guarded prognosis DNR Time Spent With Patient Time: Total time spent is greater than 50% in coordination of care (as documented) at patient's floor/unit and/or counseling patient: QUALITY Stroke Symptom Onset Unknown: No VTE Deep Vein Thrombosis/Pulmonary Embolism Present on Admission: Yes
[2021-08-13] MEDS ORDERED: POTASSIUM CHLORIDE 20 MEQ in DEXTROSE 5% IN WATER 250 ML IV ONE (07:47)
--- NOTE | 2021-08-13 07:50 | XRay Report ---
HISTORY: Altered mental status, abnormal lab values FINDINGS: There is consolidation in the left lower lobe behind left heart border, which could be atelectasis or pneumonia. This is a new finding since 05/18/21. The right lower lobe infiltrate seen on the prior exam has resolved. Heart size is normal. 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 This is a chronic stable finding. No congestive heart failure is present. IMPRESSION: Pneumonia or atelectasis in the left lower lobe Interpreted and Authenticated by: Javon Schuler 08/13/21
--- NOTE | 2021-08-13 08:00 | Ultrasound Report ---
History: Deep venous thrombosis FINDINGS: Right leg: There is normal augmentation and compressibility of the deep veins and greater saphenous vein from the groin through the calf. Doppler shows normal waveform patterns. Left leg: There is complete thrombosis of the profunda vein throughout the thigh. The clot does not extend into the common femoral vein. Normal flow is present in the common femoral, greater saphenous, popliteal, superficial femoral and the calf veins. Doppler shows normal waveform patterns except for within the profunda. 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
--- NOTE | 2021-08-13 08:01 | EKG ---
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 Uncertain mechanism. Appears to be an atrial mechanism Nonspecific IVCD with LAD Baseline wander in lead(s) V2 Electronically Signed On 08-13-2021 8:01:38 PST by Hiren Oh /store/[email or web address]/[id number]/[id number]
[2021-08-13 08:04] LABS: POC Blood Urea Nitrogen 82 mg/dL (6-20); POC CO2 18 mmol/L (22-30); POC Calcium, Ionized 1.12 mmEq/L (1.16-1.32); POC Chloride 116 mEq/L (96-108); POC Creatinine 3.4 mg/dL (0.6-1.2); POC Glucose, Random 364 mg/dL (70-105); POC Hematocrit 45 % (36-48); POC Potassium 3.3 mEql/L (3.3-5.1); POC Sodium 149 mEq/L (133-145)
[2021-08-13 08:41] LABS: Mean Cell Volume 95.6 fL (80.0-100.0); Mean Corpuscular HGB Conc 31.3 g/dL (31.0-36.0); Platelet Count 184 K/mcL (140-440); RBC 5.02 M/mcL (3.59-5.38); Red Cell Distribution Width 14.9 % (11.5-14.5); WBC 22.5 K/mcL (4.5-11.0)
[2021-08-13 08:50] LABS: ALT/SGPT 26 U/L (<40); AST/SGOT 73 U/L (<32); Albumin 3.2 gm/dL (3.2-5.2); Albumin/Globulin Ratio 1.4 (1.0-2.3); Alkaline Phosphatase 48 U/L (39-117); Bilirubin,Direct 0.4 mg/dL (<0.3); Bilirubin,Total 1.1 mg/dL (0.1-1.0); Blood Urea Nitrogen 86 mg/dL (8-23); Carbon Dioxide 15 mmol/L (22-30); Chloride 110 mmol/L (96-108); Globulin 2.3 gm/dL (2.2-3.7); Glomerular Filtration Rate 13; Glucose 314 mg/dL (70-105); Lactate Dehydrogenase 434 U/L (135-225); Triglycerides 315 mg/dL (<150); Uric Acid 11.3 mg/dL (2.5-8.0)
[2021-08-13] MEDS ORDERED: DOCUSATE SODIUM 100 MG CAPSULE PO SCH (09:00)
[2021-08-13] MEDS ORDERED: CHLORHEXIDINE GLUCONATE 1 ML ORAL.SOL SWABMOUTH SCH (09:00)
[2021-08-13] MEDS: DEXTROSE 5% IN WATER 500 ML IV SCH ×2 (09:11→10:18)
--- NOTE | 2021-08-13 09:48 | XRay Report ---
HISTORY: History: Left lower lobe infiltrate, left-sided rhonchi FINDINGS: There is a persistent small alveolar infiltrate in the left lower lobe. Vague increased interstitial lung markings are seen medially in the right lung base. These findings are unchanged from prior x-ray performed yesterday. The heart size is normal. Contour deformity of the aortic arch is again noted. IMPRESSION: Stable mild bibasilar infiltrates, left worse right Interpreted and Authenticated by: Javon Schuler 08/13/21
[2021-08-13] MEDS ORDERED: VANCOMYCIN 500 MG in 0.9 % SODIUM CHLORIDE 100 ML IV SCH (10:00)
[2021-08-13] MEDS ORDERED: morphine 4 MG/ML VIAL NEB PRN (10:43)
[2021-08-13] MEDS ORDERED: ONDANSETRON 4 MG ODT TABLET SL PRN (10:43)
[2021-08-13] MEDS ORDERED: SCOPOLAMINE 1 PATCH PATCH TOPICAL SCH (10:45)
[2021-08-13] MEDS: morphine 4 MG/ML VIAL IV PRN ×3 (11:09→22:30)
[2021-08-13] MEDS: LORazepam 2 MG/ML VIAL IV PRN (11:23)
[2021-08-13 11:31] LABS: Anisocytosis 1+ (None Seen); Band Neutrophils % 19 % (0-10); Lymphocytes % 6 % (15-49); Monocytes % (Manual) 4 % (1-12); Myelocytes % 1 %; Platelet Estimate NORMAL (Normal); RBC Morphology ABNORMAL (Normal); Segmented Neutrophils % 70 % (38-78)
--- NOTE | 2021-08-13 11:34 | Death Note ---
Discharge Sum: Prov Provider Patient information: Note initiated : 08/13/21 at 11:32 am Service Date, if different from initiated Date: [] Patient: Xi Smith 81 y/o F admitted on 08/13/21 for Abnormal labs. Chief Complaint: [] Primary care physician: Salina Mack Discharge Sum: Summary Date and Time Date of admission: 08/13/21 01:36 Summary Details: Interval history: History of present illness: Ms. Smith is a 81 year old F patient sent in from [facility] for abnormal labs Has history of COPD renal failure CHF. Diagnosed with Covid 7 days ago. She was hypoxic in the 80s. She was hypotensive. She was hypernatremic and tachycardic. Lactate was elevated at 4. Function appeared to be a little bit above baseline. Bicarb little bit low and beta hydroxybutyric acid elevated. Anion gap elevated. Urinalysis with trace ketones hyaline casts all indicative of hypovolemia and she had glucose as well. There is a concern for sepsis in the ER so she was given fluid boluses judiciously because of history of CHF and IV antibiotics. Chest x-ray and urinalysis unremarkable. Blood cultures were drawn. She does have a fever. Loop no leukocytosis. Last echo was a several months ago which showed a EF of 45 to 50% and some diastolic dysfunction, not otherwise impressive. Patient has dementia and is essentially nonverbal. He is a DNR and her son is the power of corporate associate attorney. He requested that transfer from the nursing facility here. We cannot rule out a PE here. He would need to be transferred somewhere where VQ scan can be done. Thus discussion was undertaken with by the ED physician and the son. He states she has been declining of late and given that she lays in bed all day and is has advanced dementia he does not want to be aggressive. He does not want to transfer her. Just wants to continue current treatment and see how she responds. Patient was admitted in May for acute on chronic anemia of uncertain cause And acute on chronic kidney disease Unable to gather review of systems 08/13 Had to be placed on vasopressors last night. Lactate initially improved now worsened again. Leukocytosis. To have family discussion regarding goals. Spoke several times with the son who is the POA regarding her status is that she has been admitted. He talk to family members and they have decided to transition to a hospice comfort care focus. I explained that she will likely pass away here in the hospital soon after we w ithdraw supportive measures. He stated that no family would be coming in as they wanted to keep the last memory of her from their recent [place] visit. We will transition her to comfort care focus. I relayed this information to case management who will coordinate with [facility] homes and whenever arrangements need to be made with nursing. 08/14 Started on comfort cares yesterday, appears comfortable. pt at 22:50. A: *Covid pneumonia: *Acute hypoxic respiratory failure: *Dehydration w/hypernatremia & volume depletion: *Hypotension: Had low blood pressure on last admit *Lactic acidosis: 2/2 hypotension and hypoxia *Septic shock: unknown source at this time, UA/CXR unremarkable *DVT/presumed PE but cant definitively diagnosis PE here, need V/Q scan. son wants no further w/u that would require transfer *AG Met acidosis 2/2 above with likely starvation ketosis vs dka: *HERMAN on CKD IV: *DM: A1c 6.9 *Advanced dementia: *Generalized weakness/deconditioning/debility: Poor functional status *h/o mild diastolic CHF, calculated EF ~50% *Has unstageable pressure injury to left buttocks present on admission. *goals of care: Additional Data Attending physician: Eligio Gómez
[2021-08-13] MEDS: 0.9 % SODIUM CHLORIDE 10 ML SYRINGE IV SCH ×2 (15:05→22:30)
[2021-08-13] MEDS ORDERED: ENOXAPARIN 40 MG/0.4 ML SYRINGE SQ SCH (21:00)
[2021-08-14] MEDS: 0.9 % SODIUM CHLORIDE 10 ML SYRINGE IV SCH ×4 (02:59→20:30)
[2021-08-14] MEDS: morphine 4 MG/ML VIAL IV PRN ×5 (03:00→17:00)
--- NOTE | 2021-08-14 13:45 | Internal Med Progress Note ---
SUBJECTIVE Subjective Patient information: Note initiated : 08/14/21 at 1:41 pm Service Date, if different from initiated Date: [] Patient: Xi Smith a 81 y/o F admitted on 08/13/21 for Abnormal labs. Chief Complaint: [] Interval history: Ms. Smith is a 81 year old F patient sent in from [facility] for abnormal labs Has history of COPD renal failure CHF. Diagnosed with Covid 7 days ago. She was hypoxic in the 80s. She was hypotensive. She was hypernatremic and tachycardic. Lactate was elevated at 4. Function appeared to be a little bit above baseline. Bicarb little bit low and beta hydroxybutyric acid elevated. Anion gap elevated. Urinalysis with trace ketones hyaline casts all indicative of hypovolemia and she had glucose as well. There is a concern for sepsis in the ER so she was given fluid boluses judiciously because of history of CHF and IV antibiotics. Chest x-ray and urinalysis unremarkable. Blood cultures were drawn. She does have a fever. Loop no leukocytosis. Last echo was a several months ago which showed a EF of 45 to 50% and some diastolic dysfunction, not otherwise impressive. Patient has dementia and is essentially nonverbal. He is a DNR and her son is the power of managing attorney. He requested that transfer from the nursing facility here. We cannot rule out a PE here. He would need to be transferred somewhere where VQ scan can be done. Thus discussion was undertaken with by the ED physician and the son. He states she has been declining of late and given that she lays in bed all day and is has advanced dementia he does not want to be aggressive. He does not want to transfer her. Just wants to continue current treatment and see how she responds. Patient was admitted in May for acute on chronic anemia of uncertain cause And acute on chronic kidney disease Unable to gather review of systems 08/13 Had to be placed on vasopressors last night. Lactate initially improved now worsened again. Leukocytosis. To have family discussion regarding goals. 08/14 Started on comfort cares yesterday, appears comfortable. Physical Exam: General: sleeping comfortably, No acute Distress Eyes/N/T: PERRL, Head/Neck: neck supple, CV: Tacky but regular, No murmurs, Pulm: mild ronchi on left, no wheezing Abd: soft, nontender, +BS x4 Ext: no clubbing/cyanosis, trace edema(has h/o chronic peripheral edema) Neuro: Patient nonverbal and uncooperative with exam skin: warm/dry Constitutional Vitals: Vital Signs Temp Pulse Resp BP Pulse Ox 97.5 F 110 H 12 90/49 77 L 08/14/21 08:04 08/14/21 08:04 08/14/21 08:04 08/14/21 08:04 08/14/21 08:04 Period Temp Pulse Resp BP Sys/Mitchell Pulse Ox Last 24 Hr 97.2 F-97.5 F 84-110 12-25 77-90/49-54 77-85 Intake and Output 08/13/21 08/14/21 08/14/21 21:59 05:59 13:59 Output Total 50 Balance -50 Intake & Output: Intake & Output 08/13/21 08/14/21 08/14/21 21:59 05:59 13:59 Output Total 50 Balance -50 Output: Urine Catheter Amount 50 Other: Urine Appearance Cloudy Uretheral (Mauricio) Cloudy Cloudy Urine Color Dark Yellow Uretheral (Mauricio) Dark Yellow Dark Yellow Urine Odor Uretheral (Mauricio) Normal OBJ DATA Labs CBC & Chem 7: 08/13/21 05:30 08/13/21 05:30 Labs: Abnormal Lab Results 08/13/21 08/13/21 08/13/21 19:15 07:55 05:30 WBC RBC Hgb Hct RDW MPV Neut % (Auto) Lymph % (Auto) Lymph # (Auto) Band Neutrophils % Lymphocytes % Platelet Estimate RBC Morphology Anisocytosis Macrocytosis D-Dimer VBG pCO2 VBG pO2 VBG HCO3 VBG Total CO2 VBG O2 Saturation VBG Base Excess VBG Lactic Acid 5.2 H* Carboxyhemoglobin Total Hemoglobin POC Sodium 149 H Sodium POC Potassium Potassium POC Chloride 116 H Chloride Carbon Dioxide POC Total CO2 18 L Anion Gap POC BUN 82 H BUN Creatinine POC Creatinine 3.4 H Glucose POC Glucose 364 H Hemoglobin A1c 6.9 H Uric Acid POC WB Ioniz Calcium 1.12 L Total Bilirubin Direct Bilirubin AST Lactate Dehydrogenase Troponin T NT-Pro-B Natriuret Pep Total Protein Triglycerides Beta-Hydroxybutyrate Procalcitonin Urine Protein Urine Glucose (UA) Urine Ketones Urine Occult Blood Urine Bacteria Hyaline Casts Granular Casts Urine Mucus 01/07/22 01/07/22 01/07/22 05:30 05:30 05:30 WBC 22.5 H RBC Hgb Hct 48.0 H RDW 14.9 H MPV 13.0 H Neut % (Auto) Lymph % (Auto) Lymph # (Auto) Band Neutrophils % 19 H Lymphocytes % 6 L Platelet Estimate RBC Morphology Abnormal A Anisocytosis 1+ A Macrocytosis D-Dimer VBG pCO2 VBG pO2 VBG HCO3 VBG Total CO2 VBG O2 Saturation VBG Base Excess VBG Lactic Acid Carboxyhemoglobin Total Hemoglobin POC Sodium 150 H Sodium 153 H POC Potassium 3.0 L Potassium 3.2 L POC Chloride 117 H Chloride 110 H Carbon Dioxide 15 L POC Total CO2 18 L Anion Gap 28.0 H POC BUN 85 H BUN 86 H Creatinine 3.2 H POC Creatinine 3.4 H Glucose 314 H POC Glucose 348 H Hemoglobin A1c Uric Acid 11.3 H POC WB Ioniz Calcium Total Bilirubin 1.1 H Direct Bilirubin 0.4 H AST 73 H Lactate Dehydrogenase 434 H Troponin T NT-Pro-B Natriuret Pep Total Protein 5.5 L Triglycerides 315 H Beta-Hydroxybutyrate Procalcitonin Urine Protein Urine Glucose (UA) Urine Ketones Urine Occult Blood Urine Bacteria Hyaline Casts Granular Casts Urine Mucus 08/12/21 08/12/21 08/12/21 23:18 19:34 19:15 WBC RBC Hgb Hct RDW MPV Neut % (Auto) Lymph % (Auto) Lymph # (Auto) Band Neutrophils % Lymphocytes % Platelet Estimate RBC Morphology Anisocytosis Macrocytosis D-Dimer VBG pCO2 VBG pO2 VBG HCO3 VBG Total CO2 VBG O2 Saturation VBG Base Excess VBG Lactic Acid Carboxyhemoglobin Total Hemoglobin POC Sodium 152 H Sodium POC Potassium Potassium POC Chloride 119 H Chloride Carbon Dioxide POC Total CO2 21 L Anion Gap POC BUN 82 H BUN Creatinine POC Creatinine 3.4 H Glucose POC Glucose 243 H Hemoglobin A1c Uric Acid POC WB Ioniz Calcium Total Bilirubin Direct Bilirubin AST Lactate Dehydrogenase Troponin T NT-Pro-B Natriuret Pep Total Protein Triglycerides Beta-Hydroxybutyrate Procalcitonin 2.27 H Urine Protein 100 mg/dl A Urine Glucose (UA) 250 mg/dl A Urine Ketones Trace A Urine Occult Blood Trace-intact A Urine Bacteria Few A Hyaline Casts 12 H Granular Casts 7 H Urine Mucus Few A 08/12/21 08/12/21 08/12/21 19:15 19:15 19:15 WBC RBC Hgb Hct RDW MPV Neut % (Auto) Lymph % (Auto) Lymph # (Auto) Band Neutrophils % 15 H Lymphocytes % 11 L Platelet Estimate Clumped A RBC Morphology Abnormal A Anisocytosis 1+ A Macrocytosis 1+ A D-Dimer > 20.0 H VBG pCO2 36.7 L VBG pO2 43.8 H VBG HCO3 21.3 L VBG Total CO2 22.4 L VBG O2 Saturation 70.3 H VBG Base Excess -3 L VBG Lactic Acid Carboxyhemoglobin 4.0 H Total Hemoglobin 16.5 H POC Sodium Sodium POC Potassium Potassium POC Chloride Chloride Carbon Dioxide POC Total CO2 Anion Gap POC BUN BUN Creatinine POC Creatinine Glucose POC Glucose Hemoglobin A1c Uric Acid POC WB Ioniz Calcium Total Bilirubin Direct Bilirubin AST Lactate Dehydrogenase Troponin T NT-Pro-B Natriuret Pep Total Protein Triglycerides Beta-Hydroxybutyrate Procalcitonin Urine Protein Urine Glucose (UA) Urine Ketones Urine Occult Blood Urine Bacteria Hyaline Casts Granular Casts Urine Mucus 08/12/21 08/12/21 08/12/21 19:15 19:15 19:15 WBC RBC Hgb Hct RDW MPV Neut % (Auto) Lymph % (Auto) Lymph # (Auto) Band Neutrophils % Lymphocytes % Platelet Estimate RBC Morphology Anisocytosis Macrocytosis D-Dimer VBG pCO2 VBG pO2 VBG HCO3 VBG Total CO2 VBG O2 Saturation VBG Base Excess VBG Lactic Acid 4.0 H* Carboxyhemoglobin Total Hemoglobin POC Sodium Sodium POC Potassium Potassium POC Chloride Chloride Carbon Dioxide POC Total CO2 Anion Gap POC BUN BUN Creatinine POC Creatinine Glucose POC Glucose Hemoglobin A1c Uric Acid POC WB Ioniz Calcium Total Bilirubin Direct Bilirubin AST Lactate Dehydrogenase Troponin T 0.22 H* NT-Pro-B Natriuret Pep 06984.0 H Total Protein Triglycerides Beta-Hydroxybutyrate Procalcitonin Urine Protein Urine Glucose (UA) Urine Ketones Urine Occult Blood Urine Bacteria Hyaline Casts Granular Casts Urine Mucus 08/12/21 08/12/21 19:15 19:15 WBC RBC 5.65 H Hgb 16.9 H Hct 52.5 H RDW 14.6 H MPV 12.7 H Neut % (Auto) 85.0 H Lymph % (Auto) 10.9 L Lymph # (Auto) 0.98 L Band Neutrophils % Lymphocytes % Platelet Estimate RBC Morphology Anisocytosis Macrocytosis D-Dimer VBG pCO2 VBG pO2 VBG HCO3 VBG Total CO2 VBG O2 Saturation VBG Base Excess VBG Lactic Acid Carboxyhemoglobin Total Hemoglobin POC Sodium Sodium 151 H POC Potassium Potassium POC Chloride Chloride Carbon Dioxide 18 L POC Total CO2 Anion Gap 25.0 H POC BUN BUN 74 H Creatinine 2.8 H POC Creatinine Glucose 245 H POC Glucose Hemoglobin A1c Uric Acid POC WB Ioniz Calcium Total Bilirubin 1.1 H Direct Bilirubin AST 57 H Lactate Dehydrogenase Troponin T NT-Pro-B Natriuret Pep Total Protein Triglycerides Beta-Hydroxybutyrate 3.01 H Procalcitonin Urine Protein Urine Glucose (UA) Urine Ketones Urine Occult Blood Urine Bacteria Hyaline Casts Granular Casts Urine Mucus Meds: Medications Glucose Oxid/Lactoperoxid/Muramidas (Lactoperoxi/Gluc Oxid/Pot Thio 1 Each Gel..Ea.) 1 each TOPICAL PRN PRN PRN Reason: Dry Mouth Lorazepam (Lorazepam 2 Mg/Ml Vial) 0 mg IV Q1HP PRN; Protocol PRN Reason: ANXIETY/SEDATION Last Admin: 08/13/21 11:23 Dose: 2 mg Documented by: Morphine Sulfate (Morphine 4 Mg/Ml Vial) 2 - 6 mg IV Q1HP PRN; Protocol PRN Reason: Per Pain Protocol Last Admin: 08/14/21 12:53 Dose: 4 mg Documented by: Morphine Sulfate (Morphine 4 Mg/Ml Vial) 4 mg NEB Q4HP PRN PRN Reason: Shortness Of Breath Ondansetron HCl (Ondansetron 4 Mg Odt Tablet) 4 mg SL Q4HP PRN; Protocol PRN Reason: Nausea And Vomiting Scopolamine (Scopolamine 1 Patch Patch) 1 patch TOPICAL Q72H [facility] Last Admin: 08/13/21 12:09 Dose: 1 patch Documented by: Sodium Chloride (0.9 % Sodium Chloride 10 Ml Syringe) 10 ml IV Q8 [facility] Last Admin: 08/14/21 12:53 Dose: 10 ml Documented by: ABG Interpretation ABG results: 08/12/21 19:15 ABG Methemoglobin 0.6 VBG pH 7.38 VBG pCO2 36.7 L VBG pO2 43.8 H VBG HCO3 21.3 L VBG Total CO2 22.4 L VBG O2 Saturation 70.3 H VBG Base Excess -3 L A/P Narrative A/P Narrative: A: *Covid pneumonia: *Acute hypoxic respiratory failure: -on 2L NC *Dehydration w/hypernatremia & volume depletion: *Hypotension: Had low blood pressure on last admit *Lactic acidosis: 2/2 hypotension and hypoxia *Septic shock: unknown source, UA/CXR unremarkable -fever, bandemia, pct elevated *DVT, presumed PE but cant definitively diagnosis PE here, need V/Q scan. son wants no further w/u that would require transfer *AG Met acidosis 2/2 above with likely starvation ketosis vs dka: *HERMAN on CKD IV: *DM: A1c 6.9 *Advanced dementia: *Generalized weakness/deconditioning/debility: Poor functional status *h/o mild diastolic CHF, calculated EF ~50% *goals of care: per son, no transfer, continue current therapy and await response P -Comfort cares. Time Spent With Patient Time: Total time spent is greater than 50% in coordination of care (as documented) at patient's floor/unit and/or counseling patient: QUALITY Stroke Symptom Onset Unknown: No VTE Deep Vein Thrombosis/Pulmonary Embolism Present on Admission: Yes
[2021-08-14] MEDS: LACTOPEROXI/GLUC OXID/POT THIO 1 EACH GEL..EA. TOPICAL PRN ×3 (14:00→22:50)
[2021-08-14] MEDS: LORazepam 2 MG/ML VIAL IV PRN (15:14)
== END 2021-08-15 00:40 | disposition expired | DRG 871 ==
LOC: ED 17:28 → ICU 08-13 01:36
PROVIDERS: ADMIT Internal Medicine; ATTEND Internal Medicine